=== PATIENT | male | born 1945 | race Caucasian/White ===

== ENCOUNTER 2018-03-08 22:44 | Inpatient (IN) | payer MEDICARE ==
[~2018-03-08] VITALS: Ht 177.8 cm; Wt 97.1 kg
[2018-03-08] MEDS ORDERED: ONDANSETRON HCL INJ 2 MG/ML VIAL IV STA (23:06)
[2018-03-08] MEDS ORDERED: MORPHINE SULFATE 2 MG/ML SYR IV STA (23:06)
[2018-03-08] MEDS ORDERED: SODIUM CHLORIDE 0.9% 500ML 500 ML IV ONE (23:15)
[2018-03-09] VITALS (9 sets, daily range): BP systolic 145–187; BP diastolic 66–88
[2018-03-09] MEDS ORDERED: MORPHINE SULFATE 2 MG/ML SYR IV STA ×2 (00:21→00:44)
[2018-03-09] MEDS: ENOXAPARIN SODIUM INJ 100 MG/ML SYR SC SCH ×2 (00:51→12:07)
--- NOTE | 2018-03-09 00:53 | Diagnostic Imaging Report ---
EXAM: CTA of the chest INDICATION: Chest pain and shortness of breath COMPARISON: None TECHNIQUE: Multidetector CT scanning of the chest was performed. Coronal and sagittal multiplanar reformations were obtained. Dose modulation, iterative reconstruction, and/or weight based adjustment of the mA/kV was utilized to reduce the radiation dose to as low as reasonably achievable. PE protocol performed. IV Contrast: 150 cc Isovue-370 CTDIvol has been reviewed. It is below the limits set by the Radiation Protocol Committee (RPC). FINDINGS: LUNGS AND AIRWAYS: The trachea and major bronchi are unremarkable. Scattered atelectatic changes. Faint groundglass opacities in the right lung base. PLEURA: Trace right pleural effusion. HEART, MEDIASTINUM, VESSELS: The heart is at the upper limits of normal in size with left ventricular wall thickening. No abnormal pericardial effusion. Calcified atherosclerotic changes of the thoracic aorta without aneurysm. Filling defects in the distal right main pulmonary artery with extension into segmental and subsegmental branches of the right upper, right middle and right lower lobe, with the greatest burden in the right lower lobe pulmonary arteries. Additional thrombi seen in subsegmental branches of the left upper and left lower lobe. Questionable thrombus involving the left lower pulmonary vein. (Series 2, image 61). UPPER ABDOMEN: No acute findings. MUSCULOSKELETAL: No acute findings. IMPRESSION: Acute pulmonary emboli involving the distal right main pulmonary artery with extension into segmental and subsegmental branches of the right upper, right middle and right lower lobe as well as subsegmental branches of the left upper and left lower lobe. Greatest thrombus burden is in the right lower lobe pulmonary arteries with associated groundglass opacities but no consolidative infarct. No CT findings of right heart strain. Findings discussed with Dr. Hoffman 1241 hrs March 09, 2018 Signed by: Dr. Halima Vega M.D. on 03/09/2018 12:50 AM
[2018-03-09] MEDS ORDERED: MORPHINE SULFATE 2 MG/ML SYR IV PRN (01:00)
[2018-03-09 01:10] LABS: INR 0.92; PROTHROMBIN TIME 13.2 seconds (11.9-14.5)
--- NOTE | 2018-03-09 01:18 | Diagnostic Imaging Report ---
Exam: AP view of the chest Indication: Shortness of breath and chest pain Comparison: CT of the chest March 09, 2018 Findings: The heart is within normal size limits for technique. Partially visualized lower cervical spine surgical hardware. The lungs are clear. Impression: No acute cardiothoracic abnormality. See same-day CT chest for findings of pulmonary emboli. Signed by: Dr. Halima Vega M.D. on 03/09/2018 1:14 AM
[2018-03-09] MEDS ORDERED: VITAMIN D1000 UNI1 PO (01:24)
[2018-03-09] MEDS ORDERED: BACLOFEN10 MG PO (01:24)
[2018-03-09] MEDS ORDERED: FLUTICASONE PRO16 GM (01:24)
[2018-03-09] MEDS ORDERED: MULTI-VITAMIN1 EACH (01:24)
[2018-03-09] MEDS ORDERED: ULTRAM50 MG PO (01:24)
[2018-03-09] MEDS ORDERED: ATENOLOL50 MG (01:24)
[2018-03-09] MEDS ORDERED: GABAPENTIN300 MG PO (01:24)
[2018-03-09] MEDS ORDERED: LISINOPRIL10 MG PO (01:24)
[2018-03-09] MEDS ORDERED: DOCUSATE SODIU100 MG PO (01:24)
[2018-03-09] MEDS ORDERED: INFLUENZA VIRUS VAC SPLIT INJ 0.5 ML SYR IM SCH (04:15)
[2018-03-09] MEDS: CEPHALEXIN 500 MG CAP PO SCH ×3 (06:21→17:27)
[2018-03-09 06:46] LABS: BASOPHILS # (AUTO) 0.1 (0.0-0.1); BASOPHILS % 0.5 % (0.0-1.0); EOSINOPHILS # (AUTO) 0.2 (0.0-0.4); EOSINOPHILS % 1.7 % (0.0-6.0); HEMATOCRIT 35.9 % (38.2-49.6); HEMOGLOBIN 12.4 g/dL (14.0-18.0); LYMPHOCYTES # (AUTO) 2.3 (1.0-3.2); LYMPHOCYTES % 21.8 % (18.0-39.1); MEAN CORPUSCULAR HEMOGLOBIN 30.3 pg (28-32); MEAN CORPUSCULAR HGB CONC 34.5 g/dL (31-35); MEAN CORPUSCULAR VOLUME 87.8 fL (81-99); MONOCYTES # (AUTO) 1.2 (0.2-0.8); MONOCYTES % 11.2 % (4.4-11.3); NEUTROPHILS # (AUTO) 6.9 (2.1-6.9); NEUTROPHILS % 64.6 % (38.7-80.0); PLATELET COUNT 188 x10e3/uL (140-360); RED BLOOD COUNT 4.09 x10e6/uL (4.3-5.7); RED CELL DISTRIBUTION WIDTH 13.6 % (11.7-14.4)
[2018-03-09 07:02] LABS: ANION GAP 13.9 mmol/L (8-16); BLOOD UREA NITROGEN 21 mg/dL (7-26); BUN/CREATININE RATIO 27 (6-25); CALCIUM 8.8 mg/dL (8.4-10.2); CARBON DIOXIDE 22 mmol/L (22-29); CHLORIDE 108 mmol/L (98-107); CREATINE KINASE 111 IU/L (30-200); CREATININE, SERUM 0.79 mg/dL (0.72-1.25); EST GLOMERULAR FILTRATION RATE > 60 ML/MIN (60-); GLUCOSE 115 mg/dL (74-118); POTASSIUM 3.9 mmol/L (3.5-5.1); SODIUM 140 mmol/L (136-145)
[2018-03-09] MEDS: ATENOLOL 50 MG TAB PO SCH (09:17)
[2018-03-09] MEDS: PANTOPRAZOLE 40 MG 10ML VIAL IV SCH (09:17)
[2018-03-09] MEDS: ONDANSETRON HCL INJ 2 MG/ML VIAL IV PRN ×2 (09:30→21:36)
[2018-03-09] MEDS ORDERED: MORPHINE SULFATE INJ 4 MG/ML INJ IV PRN (12:30)
[2018-03-09] MEDS ORDERED: DOCUSATE SODIUM 100 MG CAP PO PRN (13:00)
[2018-03-09] MEDS: LISINOPRIL 10 MG TAB PO SCH (14:20)
[2018-03-09] MEDS: GABAPENTIN 300 MG CAP PO SCH ×2 (14:20→21:36)
--- NOTE | 2018-03-09 15:29 | History and Physical ---
PRIMARY CARE PHYSICIAN: Dr. Baker at [facility]. CHIEF COMPLAINT: Rights-sided rib pain. HISTORY OF PRESENT ILLNESS: This is a 72-year-old man with a history of pulmonary emboli one year ago, had been treated with anticoagulants. He stopped oral anticoagulants in January 2018, now developing right-sided chest discomfort along the rib line. Patient did said he recently drove to [place] with his and drove back toward the end of January, using his [employer] pickup, now patient is having right lateral chest wall pain along the rib line. He also had shortness of breath. He had mild pain with deep inspiration for the past 2 days pulmonary embolism. Ultrasound of the leg shows right leg DVT, admitted for further evaluation and management. He did have periods of low blood pressure due to warfarin use in the past and was transition to Xarelto. PAST MEDICAL HISTORY: Hypertension, quadriplegia. Other complication of cervical neck surgery, subsequently recovering all motor function of the extremities, cervical, and lumbar disease status post C3 through C7 neck fusion and L2 through S2 fusion in November of 2016, left knee replacement status post infection, pulmonary embolism following a total knee replacement in July 2016 and quitting Xarelto use in January 2018. PAST SURGICAL HISTORY: Neck fusion C2 through C7 and L2 through S2 fusion on November 2016, total knee replacement status post infection. ALLERGIES: PER ELECTRONIC MEDICAL RECORD. FAMILY/SOCIAL HISTORY: Patient is . He has 2 children. No alcohol, illicits, or cigarettes. MEDICATIONS: Per electronic medical record. REVIEW OF SYSTEMS: Denies any dizziness or vision changes. Denies any headache, nausea, vomiting, diarrhea, or leg pain. PHYSICAL EXAMINATION VITAL SIGNS: Have been reviewed. GENERAL: Tired-appearing man resting in bed. HEENT: Anicteric. Pupils responsive to light. No oral lesions. CARDIOVASCULAR: Normal S1 and S2. No murmurs. LUNGS: Reduced breath sounds. ABDOMEN: Soft, nontender, nondistended. EXTREMITIES: No edema. Calf exam is deferred. SKIN: Dry. PSYCHIATRIC: Normal affect. NEUROLOGICAL: Alert and oriented x3. Moving all extremities. LABS: Reviewed. MEDICATIONS: Reviewed. ASSESSMENT: This is a 72-year-old man. 1. Acute pulmonary embolism. 2. Acute right leg deep vein thrombosis. 3. Normocytic anemia. 4. Hypertension. 5. Obesity. 6. Constipation. 7. Neuropathy. PLAN 1. Avoid Coumadin. 2. Use Lovenox now. Plan to transition to Xarelto before discharge. 3. Continue gabapentin and constipation medication. 4. Stabilize blood clot and plan to discharge home tomorrow the day after on Xarelto. 5. Followup with the lab tests including lipid panel and hemoglobin A1c. Job#: [id number] JEET
[2018-03-09] MEDS ORDERED: HYDRALAZINE HCL 25 MG TAB PO NR (21:00)
[2018-03-10] VITALS (8 sets, daily range): BP systolic 138–192; BP diastolic 61–88
[2018-03-10 00:27] LABS: CREATINE KINASE MB 1.6 ng/mL (0-5.0)
[2018-03-10] MEDS: ENOXAPARIN SODIUM INJ 100 MG/ML SYR SC SCH ×2 (00:45→12:46)
[2018-03-10 05:15] LABS: CHOL/HDL RATIO 3.3 (3.9-4.7)
[2018-03-10] MEDS: CEPHALEXIN 500 MG CAP PO SCH ×5 (06:00→21:43)
[2018-03-10 08:08] LABS: HEMATOCRIT 37.4 % (38.2-49.6); HEMOGLOBIN 12.8 g/dL (14.0-18.0)
[2018-03-10] MEDS: PANTOPRAZOLE 40 MG 10ML VIAL IV SCH (08:36)
[2018-03-10] MEDS: GABAPENTIN 300 MG CAP PO SCH ×3 (08:36→21:40)
[2018-03-10] MEDS: LISINOPRIL 10 MG TAB PO SCH (08:36)
[2018-03-10] MEDS: ATENOLOL 50 MG TAB PO SCH (08:37)
[2018-03-10] MEDS: HYDRALAZINE HCL 25 MG TAB PO SCH ×2 (12:46→21:40)
[2018-03-10] MEDS: ALPRAZOLAM 0.25 MG TAB PO SCH ×2 (12:47→21:43)
[2018-03-10] MEDS: ZOLPIDEM TARTRATE 5 MG TAB PO SCH (21:40)
[2018-03-11] VITALS (10 sets, daily range): BP systolic 131–186; BP diastolic 68–80
--- NOTE | 2018-03-11 00:24 | Progress Note ---
DATE: March 10, 2018 TIME: 2:30 p.m. OVERNIGHT: No events appeared overnight. Has full good night's sleep. REVIEW OF SYSTEMS: No significant chest pain, shortness of breath, back pain, or headache. No vision changes. OBJECTIVE VITAL SIGNS: Reviewed. GENERAL: A tired-appearing male, resting in bed. HEENT: Anicteric. CARDIOVASCULAR: Normal S1, S2. No murmurs. LUNGS: Reduced breath sounds. ABDOMEN: Soft, nontender, and nondistended. EXTREMITIES: No edema. SKIN: Dry. PSYCHIATRIC: Normal affect. LABS: Reviewed. MEDICATIONS: Reviewed. ASSESSMENT: A 72-year-old man with 1. Acute pulmonary embolism. 2. Acute right leg deep vein thrombosis. 3. Normocytic anemia. 4. Hypertension. 5. Obesity. 6. Constipation. 7. Neuropathy. 8. Insomnia. PLAN 1. Continue to avoid Coumadin as patient is allergic. 2. Continue blood thinners. 3. Plan to transition to Xarelto. 4. Add Ambien for insomnia. 5. Patient is stable. Respiratory status is stable. 6. Plan to discharge home on Monday with Xarelto. 7. Check H and H. Job#: [id number] VAS
[2018-03-11] MEDS: ENOXAPARIN SODIUM INJ 100 MG/ML SYR SC SCH ×2 (00:44→11:58)
[2018-03-11] MEDS: ALPRAZOLAM 0.25 MG TAB PO SCH ×3 (05:25→21:15)
[2018-03-11] MEDS: HYDRALAZINE HCL 25 MG TAB PO SCH ×3 (05:25→21:15)
[2018-03-11] MEDS: CEPHALEXIN 500 MG CAP PO SCH ×4 (05:25→22:35)
[2018-03-11] MEDS: LISINOPRIL 10 MG TAB PO SCH (10:28)
[2018-03-11] MEDS: PANTOPRAZOLE 40 MG 10ML VIAL IV SCH (10:28)
[2018-03-11] MEDS: GABAPENTIN 300 MG CAP PO SCH ×3 (10:28→21:15)
[2018-03-11] MEDS: ATENOLOL 50 MG TAB PO SCH (10:29)
[2018-03-11 15:30] LABS: BASOPHILS # (AUTO) 0.1 (0.0-0.1); EOSINOPHILS # (AUTO) 0.3 (0.0-0.4); EOSINOPHILS % 5.3 % (0.0-6.0); HEMATOCRIT 37.6 % (38.2-49.6); INR 0.87; LYMPHOCYTES # (AUTO) 1.9 (1.0-3.2); LYMPHOCYTES % 30.2 % (18.0-39.1); MEAN CORPUSCULAR HEMOGLOBIN 30.3 pg (28-32); MEAN CORPUSCULAR HGB CONC 34.6 g/dL (31-35); MEAN CORPUSCULAR VOLUME 87.6 fL (81-99); MONOCYTES # (AUTO) 0.8 (0.2-0.8); MONOCYTES % 12.2 % (4.4-11.3); NEUTROPHILS # (AUTO) 3.2 (2.1-6.9); PLATELET COUNT 241 x10e3/uL (140-360); PROTHROMBIN TIME 12.6 seconds (11.9-14.5); RED BLOOD COUNT 4.29 x10e6/uL (4.3-5.7); RED CELL DISTRIBUTION WIDTH 13.5 % (11.7-14.4)
[2018-03-11 15:35] LABS: BLOOD UREA NITROGEN 17 mg/dL (7-26); BUN/CREATININE RATIO 21 (6-25); CALCIUM 9.1 mg/dL (8.4-10.2); CARBON DIOXIDE 26 mmol/L (22-29); CHLORIDE 104 mmol/L (98-107); CREATININE, SERUM 0.82 mg/dL (0.72-1.25); EST GLOMERULAR FILTRATION RATE > 60 ML/MIN (60-); GLUCOSE 94 mg/dL (74-118); MAGNESIUM 1.8 MG/DL (1.3-2.1); SODIUM 139 mmol/L (136-145)
[2018-03-11] MEDS ORDERED: HYDROCODONE/APAP 5MG-325MG TAB PO PRN (17:15)
[2018-03-11] MEDS ORDERED: CLONIDINE HCL 0.1 MG TAB PO PRN (17:15)
[2018-03-11] MEDS ORDERED: XARELTO15 MG PO (17:21)
[2018-03-11] MEDS ORDERED: Hydrocodone/Apap 5MG-325MG PO (17:21)
[2018-03-11] MEDS ORDERED: ALPRAZOLAM0.25 MG PO (17:21)
[2018-03-11] MEDS ORDERED: KEFLEX500 MG PO (17:21)
[2018-03-11] MEDS ORDERED: Lidocaine Patch TP (17:21)
[2018-03-11] MEDS ORDERED: AMBIEN5 MG PO (17:21)
[2018-03-11] MEDS ORDERED: TRUFORM COMPRE1 EACH TOP (17:26)
[2018-03-11] MEDS: LIDOCAINE 5% PATCH TP SCH (17:45)
[2018-03-11] MEDS: RIVAROXABAN 15 MG TABLET PO SCH (17:47)
[2018-03-11] MEDS ORDERED: HYDROCODONE/APAP 10MG-325MG TAB PO PRN (18:00)
[2018-03-11] MEDS: ZOLPIDEM TARTRATE 5 MG TAB PO SCH (21:15)
[2018-03-12 00:48] VITALS: BP_SYST 160; BP_SYST 167; BP_DIAS 75; BP_DIAS 79
[2018-03-12 04:00] VITALS: BP 182/79
--- NOTE | 2018-03-12 04:32 | Discharge Summary ---
PRINCIPAL DIAGNOSES 1. Acute pulmonary embolism. 2. Acute right leg deep venous thrombosis. 3. Normocytic anemia. 4. Hypertension. 5. Obesity. 6. Constipation. 7. Neuropathy. SECONDARY DIAGNOSES 1. Hypertension. 2. History of quadriplegia. 3. Complications of cervical and neck surgery. 4. Temporary loss of motor function of the extremities, cervical and lumbar disease, status post C3-C7 neck fusion, and L2-S2 fusion in November 2016. 5. Left knee replacement, status post infection. 6. Pulmonary embolism following total knee replacement in July 2016. 7. Self-discontinuation of Xarelto in January 2018. CHIEF COMPLAINT: Right lateral chest wall pain with shortness of breath. HISTORY OF PRESENT ILLNESS: This 72-year-old man with a history of PE times 1 year ago, previously treated with anticoagulants. Oral AC discontinued in January 2018. Developed right-sided chest discomfort along the red line after driving to [place] and back in a [employer] pickup. The patient presented after having shortness of breath, mild pain with deep inspiration for 2 days prior to hospital presentation. Ultrasound of the leg showed right DVT. HOSPITAL COURSE: The patient was admitted upon presentation and underwent imaging, which confirmed acute PE involving the distal right main PA with extension into segmental and subsegmental branches of the right upper, right middle and right lower lobe, as well as subsegmental branches of the left upper and left lower lobe. The greatest burden was in the right lower lobe PA with associated ground-glass opacities, but no consolidative infarct. The patient was admitted to medical services where he was anticoagulated with Lovenox as the patient has a history of allergy to Coumadin. Initially, the patient was initiated on bowel regimen and gabapentin. The patient continued with hypertensive episodes in the hospital due to anxiety and agitation. On March 11, 2018, the patient was stratified for risk score, and it was determined he was class II without elevation in hypertension. Discussed treatment plans for hypertensive episodes with pain medication and p.r.n. hypertensive meds. The patient agreed to initial dose of Xarelto on this day. The patient agrees if hemodynamically stable in a.m. that he can be discharged home per his request on oral AC with a followup in [address] Baker. DISCHARGE MEDICATIONS: We plan to discharge the patient on: 1. Xanax 0.25 mg p.o. q.8 h. 2. Hydralazine 50 mg p.o. q.8 h. 3. Keflex 500 mg p.o. q.6 h. 4. Atenolol 25 mg p.o. daily. 5. Lisinopril 10 mg p.o. daily. 6. Gabapentin 300 mg p.o. t.i.d. 7. Protonix 40 mg will be discontinued. 8. Will continue the patient on his p.o. Ambien. 9. P.r.n. pain medications. 10. Xarelto 15 mg with meals twice daily for 21 days with the initial dose being today, Sunday, March 11, 2018. FOLLOWUP: The patient verbalized and agreed to followup with PCP, Dr. Baker, for an appointment upon discharge. CONDITION ON DISCHARGE: Stable. The patient is without symptoms at this time. Discussed risk factors for recurrence and mortality with the patient. The patient verbalized understanding and still wishes for early discharge with oral anticoagulation. DICTATED BY DOMONIQUE MARIE NP FELICIA SANCHEZ MD Job#: [id number] ADRIAN
[2018-03-12] MEDS ORDERED: HYDRALAZINE HCL 25 MG TAB PO SCH (06:00)
[2018-03-12 06:19] LABS: BASOPHILS # (AUTO) 0.1 (0.0-0.1); BASOPHILS % 1.1 % (0.0-1.0); EOSINOPHILS # (AUTO) 0.4 (0.0-0.4); EOSINOPHILS % 6.8 % (0.0-6.0); HEMATOCRIT 36.8 % (38.2-49.6); HEMOGLOBIN 12.9 g/dL (14.0-18.0); LYMPHOCYTES # (AUTO) 1.6 (1.0-3.2); LYMPHOCYTES % 28.4 % (18.0-39.1); MEAN CORPUSCULAR HEMOGLOBIN 30.3 pg (28-32); MEAN CORPUSCULAR HGB CONC 35.1 g/dL (31-35); MEAN CORPUSCULAR VOLUME 86.4 fL (81-99); MONOCYTES # (AUTO) 0.6 (0.2-0.8); MONOCYTES % 11.5 % (4.4-11.3); NEUTROPHILS # (AUTO) 2.9 (2.1-6.9); PLATELET COUNT 224 x10e3/uL (140-360); RED BLOOD COUNT 4.26 x10e6/uL (4.3-5.7); RED CELL DISTRIBUTION WIDTH 13.3 % (11.7-14.4)
[2018-03-12] MEDS: ALPRAZOLAM 0.25 MG TAB PO SCH (06:32)
[2018-03-12] MEDS: CEPHALEXIN 500 MG CAP PO SCH (06:32)
[2018-03-12 06:39] LABS: ANION GAP 12.7 mmol/L (8-16); BLOOD UREA NITROGEN 15 mg/dL (7-26); BUN/CREATININE RATIO 20 (6-25); CALCIUM 8.5 mg/dL (8.4-10.2); CARBON DIOXIDE 23 mmol/L (22-29); CHLORIDE 107 mmol/L (98-107); CREATININE, SERUM 0.76 mg/dL (0.72-1.25); EST GLOMERULAR FILTRATION RATE > 60 ML/MIN (60-); GLUCOSE 107 mg/dL (74-118); POTASSIUM 3.7 mmol/L (3.5-5.1); SODIUM 139 mmol/L (136-145)
[2018-03-12 07:30] VITALS: BP 139/67
[2018-03-12 07:40] VITALS: BP 139/67
[2018-03-12] MEDS: RIVAROXABAN 15 MG TABLET PO SCH (08:50)
[2018-03-12] MEDS: ATENOLOL 50 MG TAB PO SCH (09:21)
[2018-03-12] MEDS: GABAPENTIN 300 MG CAP PO SCH (09:21)
[2018-03-12] MEDS: LIDOCAINE 5% PATCH TP SCH (09:21)
[2018-03-12] MEDS: LISINOPRIL 10 MG TAB PO SCH (09:21)
[2018-03-12] MEDS: PANTOPRAZOLE 40 MG 10ML VIAL IV SCH (09:21)
--- NOTE | 2018-03-12 10:29 | Discharge Summary ---
ADDENDUM Patient remained as well for 1 additional day while on Xarelto, he will be discharged today. No events overnight. For further details of discharge, please refer to the discharge summary dated March 11, 2018. FELICIA SANCHEZ MD Job#: [id number]
[2018-03-13] MEDS ORDERED: PANTOPRAZOLE SOD 40 MG TABEC PO SCH (07:30)
== END 2018-03-12 10:33 | disposition home or self-care (01) | DRG 299 ==
LOC: FSED 22:44 → ERHOLD 03-09 00:54 → MED/SURG3 03-09 02:18
PROVIDERS: ADMIT Internal Medicine; ATTEND Internal Medicine
DX: I82.401 Acute embolism and thrombosis of unspecified deep veins of right lower extremity (principal); I26.09 Other pulmonary embolism with acute cor pulmonale; D64.9 Anemia, unspecified; I10 Essential (primary) hypertension; G62.9 Polyneuropathy, unspecified; Z91.14 Patient's other noncompliance with medication regimen; K59.00 Constipation, unspecified; Z96.652 Presence of left artificial knee joint; G47.00 Insomnia, unspecified; E66.9 Obesity, unspecified; Z68.30 Body mass index [BMI] 30.0-30.9, adult; Z23 Encounter for immunization
CPT/HCPCS: 36415; 71045; 71260; 80048; 80053; 80061; 82550; 82553; 83036; 83735; 83880; 84484; 85014; 85018; 85025; 85379; 85610; 85730; 93005; 93306; 93970; J1650; J2270; J2405; J7040

== ENCOUNTER 2018-06-23 13:28 | Emergency (ER) | payer MEDICARE ==
[~2018-06-23] VITALS: Ht 177.8 cm; Wt 97.1 kg
[~2018-06-23 13:28] MED LIST: ALPRAZOLAM0.25 MG PO; AMBIEN5 MG PO; ATENOLOL50 MG; BACLOFEN10 MG PO; DOCUSATE SODIU100 MG PO; FLUTICASONE PRO16 GM; GABAPENTIN300 MG PO; Hydrocodone/Apap 5MG-325MG PO; KEFLEX500 MG PO; LISINOPRIL10 MG PO; Lidocaine Patch TP; MULTI-VITAMIN1 EACH; TRUFORM COMPRE1 EACH TOP; ULTRAM50 MG PO; VITAMIN D1000 UNI1 PO; XARELTO15 MG PO
--- OUTSIDE RECORDS SUMMARY | 2018-06-23 13:31 | XMS REPORT | Clinical Summary ---
Author Author PIERRE [facility]anda GamesSt[facility] CenterSolarNOW [facility] Address Unknown Phone Unavailable Care Team Providers Care Communications Department Chairperson Name Role Phone Michele Barry Gino PCP Unavailable Allergies Comments Active Allergy Reactions Severity Noted Date Muscle pain Atorvastatin Other (See 07/24/2013 Comments) Muscle pain Amlodipine Other (See 07/24/2013 Comments) Medications End Date Status Medication Sig Dispensed Refills Start Date Active docusate sodium (COLACE) Take 100 mg 0 100 MG capsule by mouth daily . Active lisinopril Take 10 mg by 0 (PRINIVIL,ZESTRIL) 10 MG mouth nightly tablet . Active senna (SENOKOT) 8.6 mg Take 2 0 tablet tablets by mouth daily with lunch . Active simvastatin (ZOCOR) 40 MG Take 40 mg by 0 tablet mouth nightly. Active cholecalciferol, vitamin Take 5,000 0 D3, 5,000 unit Tab Units by mouth daily. Active ztjvvpsy-atbd-jij-folic Take 1 tablet 0 acid by mouth. (LWTKVWXHTWDH-THFQ-PYEYVO LS-FOLIC ACID) 3,500-18-0.4 unit-mg-mg Chew Active ferrous sulfate 325 (65 Take 325 mg 0 FE) MG tablet by mouth daily with breakfast. Active cyanocobalamin (VITAMIN Take 1,000 0 B-12) 1000 MCG tablet mcg by mouth daily. Active cephalexin (KEFLEX) 500 Take 500 mg 0 MG capsule by mouth 4 (four) times daily. Active omeprazole (PRILOSEC) 40 Take 40 mg by 0 MG capsule mouth daily. Active pregabalin (LYRICA) 100 Take 100 mg 0 MG capsule by mouth 3 (three) times daily. Active HYDROcodone-acetaminophen Take 1 tablet 0 (NORCO 10-325) 10-325 mg by mouth per tablet every 6 (six) hours as needed for Pain. Active BIFIDOBACTERIUM INFANTIS Take by mouth 0 (ALIGN ORAL) daily. Active atenolol (TENORMIN) 25 MG Take 25 mg by 0 tablet mouth 7 nightly. 08/05/2017 warfarin (COUMADIN) 2.5 Take 2.5 mg 0 MG tablet by mouth 7 daily Mon , and Sundays 5mgs, - 10 mgs, and Monday 7.5mgs . 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 Hypertension 07/26/2016 Infection of total knee replacement, initial encounter 07/16/2016 Spinal cord injury, cervical region 07/31/2013 Post-operative complication 07/31/2013 Neurological deficit present 07/31/2013 Dysphagia 07/31/2013 Hypocalcemia 07/31/2013 Anemia associated with acute blood loss 07/31/2013 History of steroid therapy 07/31/2013 Anxiety 07/31/2013 Cervical spondylosis 07/31/2013 Hypotension (arterial) 07/31/2013 Hypertension due to medical or surgical care 07/31/2013 Cervical myelopathy 07/25/2013 Social History Date Tobacco Use Types Packs/Day Years Used Never Smoker Smokeless Tobacco: Never Used Alcohol Use Drinks/Week oz/Week Comments Yes seldom Sex Assigned at Date Recorded Not on file Industry Job Start Date Occupation Not on file Not on file Not on file Travel End Travel History Travel Start No recent travel history available. Last Filed Vital Signs Not on file Plan of Treatment Not on file Implants Device Identifier Shelf Expiration Date Model / Serial / Lot Implanted Type Area Manufactur er 03/14/2014 23184 / [id number] / [id number] Leroy Michaud 5cc - [id number] Bone N/A: Neck RTI Implanted: Qty: 1 on 07/25/2013 by Giovani Wright MD 04/12/2018 [id number] / / [id number] Infusion Set Bone Infuseii Lg Bone N/A: Spine MEDTRONIC: [id number] - [id number] Lumbar SPINAL Implanted: Qty: 1 on 11/10/2016 by BIOLOGICS Heriberto Zee MD 08/04/2017 [id number] / [id number] / Bone Grft Sub Dbx Pty 5ml [id number] - Bone N/A: Spine MUSCULOSKE [id number] Lumbar LETAL Implanted: Qty: 1 on 11/10/2016 by Heriberto Casey MD FND 2019 TPUT10 / [id number] / Tiss Live Puty Dbm Optium 10cc Bone N/A: Spine LIFENET:LI Tput10 - [id number] Lumbar FENET Implanted: Qty: 1 on 11/11/2016 by TRANSPLANT Heriberto Zee MD SRV 07/11/2018 [id number] / [id number] / Bone Grft Sub Dbx Pty 5ml [id number] - Bone N/A: Spine MUSCULOSKE [id number] Lumbar LETAL Implanted: Qty: 1 on 11/11/2016 by TRANSPLANT Heriberto Zee MD FND 12/22/2017 [id number] / [id number] / Bone Grft Sub Dbx Pty 10ml [id number] - Bone N/A: Spine MUSCULOSKE [id number] Lumbar LETAL Implanted: Qty: 1 on 11/11/2016 by TRANSPLANT Heriberto Zee MD FND 05/09/2019 554186 / [id number] / Bone Chip Canc 1.7-10mm 30ml Bone N/A: Spine MUSCULOSKE [id number] - [id number] Lumbar LETAL Implanted: Qty: 1 on 11/11/2016 by Heriberto Casey MD FND 11/09/2014 [id number] / / [id number] Cement,Bone Simplex P Speedset Full Cement/Juaquin Left: Knee Kristine Dose 40gm - [id number] ler/Adhesi Orthopaedi Implanted: Qty: 2 on 12/04/2013 by shimon Marino Rabago MD 04/11/2018 [id number] / / [id number] Matrix Floseal Hemo W/O Ndl 10 Cement/Juaquin N/A: Spine MOORE:BIO [id number] - [id number] ler/Adhesi Lumbar SCI Implanted: Qty: 1 on 11/10/2016 by Heriberto Busby MD 04/11/2018 [id number] / / [id number] Matrix Floseal Hemo W/O Ndl 10 Cement/Juaquin MOORE:BIO [id number] - [id number] ler/Adhesi SCI Implanted: Qty: 3 on 11/11/2016 by Heriberto Busby MD 12/09/2017 [id number] / / [id number] Sealant Duraseal Spine Ds3 5ml Cement/Juaquin N/A: Spine COVIDIEN:U 20-6520 - [id number] ler/Adhesi Lumbar S Implanted: Qty: 1 on 11/11/2016 by shimon SURG:SYNET Heriberto Zee MD [facility] 04/11/2021 [id number] / / [id number] Patella,Persona All Poly 35mm - Joints Left: Knee DAQUAN INC [id number] Implanted: Qty: 1 on 12/04/2013 by Marino Rabago MD 09/10/2023 [id number] / / [id number] Tibial Stem,Persona 5deg Sz G L - Joints Left: Knee DAQUAN INC [id number] Implanted: Qty: 1 on 12/04/2013 by Marino Rabago MD 08/09/2023 [id number] / / [id number] Femoral,Persona Cruciate Retaining Joints Left: Knee DAQUAN INC Std Sz 11 L - [id number] Implanted: Qty: 1 on 12/04/2013 by Marino Rabago MD 04/11/2020 [id number] / / [id number] Femoral,Persona Articular Surface Joints Left: Knee DAQUAN INC Crutiate Retaining L 7-12 Gh 10mm - [id number] Implanted: Qty: 1 on 12/04/2013 by Marino Rabago MD 05/11/2021 [id number] / / [id number] Cr Polyethylese Left 10mm Height Joints Left: Knee Daquan Implanted: Qty: 1 on 07/18/2016 by Marino Rabago MD [id number] / / Manuel,Oasys - [id number] Spine N/A: Neck KRISTINE Implanted: Qty: 10 on 07/25/2013 by Giovani Cho MD [id number] / / [id number] Screw,Polyaxial Cancellous 3.5x14mm Spine N/A: Neck KRISTINE - [id number] Implanted: Qty: 10 on 07/25/2013 by Giovani Sapp MD [id number] / / [id number] Balta,Oasys Ti 3.5x70mm - [id number] Spine N/A: Neck KRISTINE Implanted: Qty: 2 on 07/25/2013 by Giovani Cho MD 04/21/2024 [id number] / / [id number] Dev Clydesdl Ptc 18mm 6d 10x50 Spine N/A: Spine MEDTRONIC: [id number] - [id number] Lumbar SPINAL Implanted: Qty: 1 on 11/10/2016 by Heriberto Chilel MD 04/07/2023 [id number] / / [id number] Dev Clydesdl Ptc 18mm 6d 10x55 Spine N/A: Spine MEDTRONIC: [id number] - [id number] Lumbar SPINAL Implanted: Qty: 1 on 11/10/2016 by Heriberto Chilel MD 03/23/2024 [id number] / / [id number] Dev Clydesdl Ptc 18mm 6d 10x55 Spine N/A: Spine MEDTRONIC: [id number] - [id number] Lumbar SPINAL Implanted: Qty: 1 on 11/10/2016 by Heriberto Chilel MD [id number] / / [id number] Screw Mas Cc 7.5x50 [id number] - Spine N/A: Spine MEDTRONIC: [id number] Lumbar SPINAL Implanted: Qty: 8 on 11/11/2016 by Heriberto Chilel MD [id number] / / [id number] Screw Set Ti Ns Brk Off 5.5 - Spine N/A: Spine MEDTRONIC: [id number] Lumbar SPINAL Implanted: Qty: 12 on 11/11/2016 by Heriberto Chilel MD [id number] / / [id number] Balta Plus 5.5mm [id number] - Spine N/A: Spine MEDTRONIC: [id number] Lumbar SPINAL Implanted: Qty: 1 on 11/11/2016 by Heriberto Chilel MD [id number] / / [id number] Scr Mas 8.5x90 [id number] - Spine N/A: Spine MEDTRONIC: [id number] Lumbar SPINE:SOFA Implanted: Qty: 1 on 11/11/2016 by Heriberto Lerma MD [id number] / / [id number] Ballast Mas 8.5x80 Spine N/A: Spine MEDTRONIC Implanted: Qty: 1 on 11/11/2016 by Lumbar Heriberto Zee MD [id number] / / [id number] Screw Mas Cc 7.5 X 45 [id number] - Spine N/A: Spine MEDTRONIC: [id number] Lumbar SPINAL Implanted: Qty: 2 on 11/11/2016 by BIOLOGICS Heriberto Zee MD Results Not on fileafter 06/22/2017 Insurance Payer Benefit Subscriber ID Type Phone Address Plan / Group [facility] MEDIC[facility] ADV Advance Directives For more information, please contact: [address] [address] Date Inactivated Comments Code Status Date Activated 11/10/2016 10:03 PM Full Code 11/10/2016 6:31 AM This code status was determined by: Patient 08/04/2016 5:10 PM Full Code 07/26/2016 9:38 AM This code status was determined by: Patient 07/21/2016 3:31 PM Full Code 07/16/2016 5:35 AM This code status was determined by: Patient 12/04/2013 8:02 PM All possible means of support including;cardiac massage, mechanical ventilation, and defibrillation will be used to support life. Code ONE 12/04/2013 9:53 AM 07/31/2013 10:40 PM All possible means of support, including: cardiac massage, mechanical ventilation, and defibrillation will be used to support life. Code ONE 07/25/2013 6:21 PM
--- OUTSIDE RECORDS SUMMARY | 2018-06-23 13:31 | XMS REPORT | Continuity of Care Document ---
Author Author [facility] Interface Address Unknown Phone Unavailable Problems Problem Status Onset Date Classification Date Reported Comments Source CELLULITIS, EFFUSION OF KNEE JOINT LEFT, Active 07/14/2016 [facility] LOWER BACK PAIN Active 07/14/2016 [facility] POST DC FU- NO ORDER Active 08/30/2013 [facility] Cervical myelopathy Active Problem 07/18/2016 [facility] Dysphagia Active Problem 07/18/2016 [facility] Hemiparesis Active Problem 07/18/2016 [facility] HTN (<span [id number]">Confirmed</span>) Resolved Problem 07/18/2016 [facility] Osteoarthritis Resolved Problem 07/18/2016 [facility] Tetraparesis Active Problem 07/18/2016 [facility] CELLULITIS, UNSPECIFIED Active [facility] EFFUSION, LEFT KNEE Active [facility] SIRS OF NON-INFECTIOUS ORIGIN W/O ACUTE Active [facility] Medications Medication Details Route Status Patient Instructions Ordering Provider Order Date Source RN-Do not give Vanc till trough drawn 07/16/16@ 15:30 RN-Do not give Vanc till trough drawn 07/16/16@ 15:30, ATTN:RN - REMINDER, Drug form: MISC, Route: MISC, ONCE, 07/16/16 16:30:00 TUBE CLOSING MACHINE OPERATOR, Stop date: 07/16/16 16:30:00 TUBE CLOSING MACHINE OPERATOR No Longer Active 07/16/2016 [facility] RN-Do not give Vanc till trough drawn 07/16/16@ 16:30 RN-Do not give Vanc till trough drawn 07/16/16@ 16:30, ATTN:RN - REMINDER, Drug form: MISC, Route: MISC, ONCE, 07/16/16 16:00:00 TUBE CLOSING MACHINE OPERATOR, Stop date: 07/16/16 16:00:00 TUBE CLOSING MACHINE OPERATOR No Longer Active 07/16/2016 [facility] vancomycin + sodium chloride 0.9% 500 mL INJ (for IV set) 500 mL 2,000 mg, Route: IVPB, [id number], Start date: 07/15/16 17:00:00 TUBE CLOSING MACHINE OPERATOR, Duration: 30 day, Stop date: 08/14/16 5:00:00 CSTNotes: TIME CRITICAL MEDICATION (Same As: Vancocin) Infusion rate 2001 mg: infuse over 2.5 hours MEDICATION WASTE Product Size: 1000 mg Product Wasted: ___ mg Inactive 07/15/2016 [facility] ondansetron 2 mg/mL injectable solution 4 mg=2 mL, IVP, Q6H, PRN Nausea & Vomiting, 0 Refill(s) Active 07/15/2016 [facility] Morphine 2 mg=1 mL, IVP, Q4H, PRN Pain Score 7-10, 0 Refill(s) Active 07/15/2016 [facility] acetaminophen 325 mg oral tablet 650 mg=2 tab, PO, Q4H, PRN Pain 1-3/Temp > 100.4 F, 0 Refill(s) Active 07/15/2016 [facility] heparin 5,000 unit, 1 mL, Route: SUB-Q, Drug form: INJ, Q12H, Dosing Weight 95.455, kg, Start date: 07/15/16 9:00:00 TUBE CLOSING MACHINE OPERATOR, Duration: 30 day, Stop date: 08/13/16 21:00:00 CSTNotes: porcine heparin Inactive 07/15/2016 [facility] tramadol hydrochloride 50 MG Oral Tablet 50 mg=1 tab, PO, BID, PRN Pain Score 6-10, 0 Refill(s) Active 07/15/2016 [facility] Senna-gen 8.6 mg oral tablet 17.2 mg=2 tab, PO, Bedtime, PRN for constipation, # 100 tab, 0 Refill(s) Active 07/15/2016 [facility] lisinopril 20 mg oral tablet 20 mg=1 tab, PO, Daily, # 30 tab, 0 Refill(s) Active 07/15/2016 [facility] tizanidine 2 mg oral capsule 2 mg=1 cap, PO, Bedtime, PRN for muscle spasm, take 1 to 2 tabs as needed, # 30 cap, 0 Refill(s) Active 07/15/2016 [facility] Vitamin D3 5000 intl units oral capsule 5,000 IntlUnit=1 cap, PO, Daily, # 30 cap, 1 Refill(s) Active 07/15/2016 [facility] tizanidine 2 mg oral tablet 4 mg=2 tab, PO, Bedtime, PRN as needed for muscle spasm, take 1 to 2 tabs as needed, 0 Refill(s) Active 07/15/2016 [facility] Centrum Silver Men's 1 tab, PO, Daily, 0 Refill(s) Active 07/15/2016 [facility] Docusate Sodium 100 MG Oral Capsule 100 mg=1 cap, PO, Daily, PRN Constipation, # 20 cap, 0 Refill(s) Active 07/15/2016 [facility] Diclofenac 75 mg, PO, BID, 0 Refill(s) Active 07/15/2016 [facility] simvastatin 10 mg oral tablet 10 mg=1 tab, PO, Bedtime, # 90 tab, 1 Refill(s) Active 07/15/2016 [facility] Atenolol 25 MG Oral Tablet 25 mg=1 tab, PO, Daily, # 30 tab, 0 Refill(s) Active 07/15/2016 [facility] gabapentin 300 MG Oral Capsule 600 mg=2 cap, PO, TID, 0 Refill(s) Active 07/15/2016 [facility] Zosyn 3.375 gm, Route: IVPB, [id number], Dosing Weight 95.455, kg, CrCl >=20 ml/min infuse over 4 hours, Start date: 07/15/16 4:00:00 TUBE CLOSING MACHINE OPERATOR, Duration: 30 day, Stop date: 08/13/16 21:00:00 CSTNotes: (Same as: Zosyn) Dosing based on Piperacillin component MEDICATION WASTE Product Size: 3375 mg Product Wasted: ___ mg Inactive 07/15/2016 [facility] Vancomycin 1 ea, Route: MISC, Dosing Weight 95.455, kg, ONCALL, Start date: 07/15/16 4:00:00 TUBE CLOSING MACHINE OPERATOR, Duration: 1 doses or times, Pharmacy to dose Inactive 07/15/2016 [facility] vancomycin + sodium chloride 0.9% 500 mL INJ (for IV set) 500 mL 2,000 mg, Route: IVPB, ONCE, Start date: 07/15/16 3:25:00 TUBE CLOSING MACHINE OPERATOR, Stop date: 07/15/16 3:25:00 CSTNotes: TIME CRITICAL MEDICATION (Same As: Vancocin) Infusion rate 2001 mg: infuse over 2.5 hours MEDICATION WASTE Product Size: 1000 mg Product Wasted: ___ mg Inactive 07/15/2016 [facility] Morphine 2 mg, 1 mL, Route: IVP, Drug form: INJ, Q4H, Dosing Weight 95.455, kg, PRN Pain Score 7-10, Start date: 07/15/16 3:10:00 TUBE CLOSING MACHINE OPERATOR, Duration: 30 day, Stop date: 08/14/16 3:09:00 CSTNotes: (Same as:MORPhine Sulfate) Inactive 07/15/2016 [facility] Ondansetron 4 mg, 2 mL, Route: IVP, Drug form: INJ, Q6H, Dosing Weight 95.455, kg, PRN Nausea & Vomiting, Start date: 07/15/16 3:10:00 TUBE CLOSING MACHINE OPERATOR, Duration: 30 day, Stop date: 08/14/16 3:09:00 CSTNotes: (Same as: Zofran) MEDICATION WASTE Product Size: 4 mg Product Wasted: ___ mg Inactive 07/15/2016 [facility] Acetaminophen 650 mg, 2 tab, Route: PO, Drug form: TAB, Q4H, Dosing Weight 95.455, kg, PRN Pain 1-3/Temp > 100.4 F, Start date: 07/15/16 3:10:00 TUBE CLOSING MACHINE OPERATOR, Duration: 30 day, Stop date: 08/14/16 3:09:00 CSTNotes: Do not exceed 4 gm/day. (Same as: Tylenol) Inactive 07/15/2016 [facility] Saline Flush 0.9% 10 ml, Route: IVP, Drug Form: INJ, Dosing Weight 95.455, kg, PRN, PRN Line Flush, Start date: 07/15/16 3:10:00 TUBE CLOSING MACHINE OPERATOR, Duration: 30 day, Stop date: 08/14/16 3:09:00 CSTNotes: (Same as: BD Posiflush) Inactive 07/15/2016 [facility] Sodium Chloride 0.154 MEQ/ML Injectable Solution 1,000 mL, Rate: 125 ml/hr, Infuse over: 8 hr, Route: IV, Dosing Weight 95.455 kg, Total Volume: 1,000, Start date: 07/15/16 3:10:00 TUBE CLOSING MACHINE OPERATOR, Duration: 30 day, Stop date: 08/14/16 3:09:00 TUBE CLOSING MACHINE OPERATOR Inactive 07/15/2016 [facility] Sodium Chloride 0.154 MEQ/ML Injectable Solution 3,000 mL, 1000 ml/hr, Infuse Over: 3 hr, Route: IV, 3,000, Drug form: INJ, ONCE, Priority: STAT, Dosing Weight 95.455 kg, Start date: 07/15/16 3:01:00 TUBE CLOSING MACHINE OPERATOR, Duration: 1 doses or times, Stop date: 07/15/16 3:01:00 TUBE CLOSING MACHINE OPERATOR Inactive 07/15/2016 [facility] Vancomycin 1,000 mg, Route: IVPB, Drug form: INJ, ONCE, Dosing Weight 95.455, kg, Priority: STAT, Start date: 07/15/16 2:50:00 TUBE CLOSING MACHINE OPERATOR, Stop date: 07/15/16 2:50:00 TUBE CLOSING MACHINE OPERATOR Inactive 07/15/2016 [facility] Lidocaine Hydrochloride 10 MG/ML Injectable Solution 1 mL, Route: SUB-Q, Drug Form: INJ, Dosing Weight 95.455, kg, ONCE, STAT, Start date: 07/15/16 0:54:00 TUBE CLOSING MACHINE OPERATOR, Stop date: 07/15/16 0:54:00 CSTNotes: Preservative free. (Same as: Xylocaine MPF) Inactive 07/15/2016 [facility] Cefazolin 1 gm, Route: IVPB, ONCE, Dosing Weight 95.455, kg, Priority: STAT, Start date: 07/15/16 0:54:00 TUBE CLOSING MACHINE OPERATOR, Stop date: 07/15/16 0:54:00 CSTNotes: (Same As: Ancef, Kefzol) MEDICATION WASTE Product Size: 1000 mg Product Wasted: ___ mg Inactive 07/15/2016 [facility] Tylenol 975 mg, 3 tab, Route: PO, Drug form: TAB, ONCE, Dosing Weight 95.455, kg, Priority: STAT, Start date: 07/15/16 0:51:00 TUBE CLOSING MACHINE OPERATOR, Stop date: 07/15/16 0:51:00 CSTNotes: Do not exceed 4 gm/day. (Same as: Ty lenol) Inactive 07/15/2016 [facility] Ondansetron 4 mg, 2 mL, Route: IVP, Drug form: INJ, ONCE, Dosing Weight 95.455, kg, Priority: STAT, Start date: 07/15/16 0:50:00 TUBE CLOSING MACHINE OPERATOR, Stop date: 07/15/16 0:50:00 CSTNotes: (Same as: Zofran) MEDICATION WASTE * Product Size: 4 mg Product Wasted: ___ mg Inactive 07/15/2016 [facility] Morphine 4 mg, 1 mL, Route: IVP, Drug form: SOLN, ONCE, Dosing Weight 95.455, kg, Priority: STAT, Start date: 07/15/16 0:50:00 TUBE CLOSING MACHINE OPERATOR, Stop date: 07/15/16 0:50:00 CSTNotes: (Same as:MORPhine Sulfate) Inactive 07/15/2016 [facility] Sodium Chloride 0.154 MEQ/ML Injectable Solution 1,000 mL, 1000 ml/hr, Infuse Over: 1 hr, Route: IV, 1,000, Drug form: INJ, ONCE, Priority: STAT, Dosing Weight 95.455 kg, Start date: 07/15/16 0:50:00 TUBE CLOSING MACHINE OPERATOR, Duration: 1 doses or times, Stop date: 07/15/16 0:50:00 TUBE CLOSING MACHINE OPERATOR Inactive 07/15/2016 [facility] Allergies, Adverse Reactions, Alerts Substance Category Reaction Severity Reaction type Status Date Reported Comments Source Lipitor Assertion Drug allergy Active [facility] Norvasc Assertion Drug allergy Active [facility] Immunizations Immunization Date Given Site Status Last Updated Comments Source Results Order Name Results Value Reference Range Date Interpretation Comments Source URINE AND STOOL UA Urobilinogen <=1.0 mg/dL 0.1 - 1.0 07/15/2016 [facility] URINE AND STOOL UA Sq Epi None Seen 07/15/2016 [facility] URINE AND STOOL UA Spec Grav 1.028 <=1.030 07/15/2016 [facility] URINE AND STOOL UA Protein Negative mg/dL Negative mg/dL 07/15/2016 [facility] URINE AND STOOL UA Turbidity Clear (07/15/16 9:43 AM) Clear 07/15/2016 [facility] URINE AND STOOL UA Color Yellow *NA* (07/15/16 9:43 AM) Yellow 07/15/2016 [facility] URINE AND STOOL UA pH 5.0 5.0 - 8.0 07/15/2016 [facility] URINE AND STOOL UA Bili Negative *NA* (07/15/16 9:43 AM) Negative 07/15/2016 [facility] URINE AND STOOL UA Ketones Negative mg/dL Negative mg/dL 07/15/2016 [facility] URINE AND STOOL UA Glucose Negative mg/dL Negative mg/dL 07/15/2016 [facility] URINE AND STOOL UA Leuk Est Negative (07/15/16 9:43 AM) Negative 07/15/2016 [facility] URINE AND STOOL UA RBC 6 /HPF 0 - 2 07/15/2016 [facility] URINE AND STOOL UA Nitrite Negative (07/15/16 9:43 AM) Negative 07/15/2016 [facility] URINE AND STOOL UA WBC 3 /HPF 0 - 5 07/15/2016 [facility] URINE AND STOOL UA Blood Negative (07/15/16 9:43 AM) Negative 07/15/2016 [facility] URINE AND STOOL UA Bacteria Occasional /HPF None Seen /HPF 07/15/2016 [facility] URINE AND STOOL UA Mucus Many /LPF None Seen /LPF 07/15/2016 [facility] URINE AND STOOL UA Hyal Cast 1 /LPF 0 - 2 07/15/2016 [facility] CHEM PANEL Lactic Acid Lvl 1.8 mMol/L 0.5 - 2.2 07/15/2016 [facility] ELECTROLYTES AGAP 16.9 meq/L 10.0 - 20.0 07/15/2016 [facility] ELECTROLYTES B/C Ratio 27 6 - 25 07/15/2016 [facility] ELECTROLYTES Globulin 4.1 g/dL 2.7 - 4.2 07/15/2016 [facility] ELECTROLYTES A/G Ratio 0.9 0.7 - 1.6 07/15/2016 [facility] ELECTROLYTES Potassium Lvl 3.9 meq/L 3.5 - 5.1 07/15/2016 [facility] ELECTROLYTES Sodium Lvl 139 meq/L 135 - 145 07/15/2016 [facility] ELECTROLYTES Calcium Lvl 8.1 mg/dL 8.5 - 10.5 07/15/2016 [facility] ELECTROLYTES CO2 22 meq/L 24 - 32 07/15/2016 [facility] ELECTROLYTES Chloride Lvl 104 meq/L 95 - 109 07/15/2016 [facility] ELECTROLYTES Glucose Lvl 138 mg/dL 70 - 99 07/15/2016 [facility] ELECTROLYTES Creatinine Lvl 1.00 mg/dL 0.50 - 1.40 07/15/2016 [facility] ELECTROLYTES BUN 27 mg/dL 7 - 22 07/15/2016 [facility] ELECTROLYTES Albumin Lvl 3.6 g/dL 3.5 - 5.0 07/15/2016 [facility] ELECTROLYTES Total Protein 7.7 g/dL 6.4 - 8.4 07/15/2016 [facility] ELECTROLYTES Bili Total 0.5 mg/dL 0.2 - 1.3 07/15/2016 [facility] ELECTROLYTES Alk Phos 95 unit/L 39 - 136 07/15/2016 [facility] ELECTROLYTES AST 22 unit/L 0 - 37 07/15/2016 [facility] ELECTROLYTES ALT 31 unit/L 0 - 65 07/15/2016 [facility] ELECTROLYTES eGFR 76 mL/min/1.73m2 07/15/2016 Result Comment: The eGFR is calculated using the CKD-EPI formula. In most young, healthy individuals the eGFR will be >90 mL/min/1.73m2. The eGFR declines with age. An eGFR of 60-89 may be normal in some populations, particularly the elderly, for whom the CKD-EPI formula has not been extensively validated. Use of the eGFR is not recommended in the following populations: Individuals with unstable creatinine concentrations, including patients and those with serious co-morbid conditions. Patients with extremes in muscle mass or diet. The data above are obtained from the National Kidney Disease Education Program (NKDEP) which additionally recommends that when the eGFR is used in patients with extremes of body mass index for purposes of drug dosing, the eGFR should be multiplied by the estimated BMI. [facility] Sed Rate 21 mm/h 0 - 15 07/15/2016 [facility] MCH 30.1 pg 27.0 - 31.0 07/15/2016 [facility] MCV 87.2 fL 80.0 - 94.0 07/15/2016 [facility] MCHC 34.5 g/dL 32.0 - 36.0 07/15/2016 [facility] RDW 14.1 % 11.5 - 14.5 07/15/2016 [facility] Hct 38.3 % 42.0 - 54.0 07/15/2016 [facility] MPV 10.8 fL 7.4 - 10.4 07/15/2016 [facility] Platelet 166 K/CMM 133 - 450 07/15/2016 [facility] WBC 17.0 K/CMM 3.7 - 10.4 07/15/2016 [facility] Hgb 13.2 g/dL 14.0 - 18.0 07/15/2016 [facility] RBC 4.39 M/CMM 4.70 - 6.10 07/15/2016 [facility] INR 1.07 0.85 - 1.17 07/15/2016 [facility] HEMATOLOGY PT 14.1 s 12.0 - 14.7 07/15/2016 [facility] HEMATOLOGY PTT 28.4 s 22.9 - 35.8 07/15/2016 [facility] HEMATOLOGY Basophils # 0.1 K/CMM 0.0 - 0.2 07/15/2016 [facility] HEMATOLOGY Segs-Bands # 14.0 K/CMM 1.5 - 8.1 07/15/2016 [facility] Basophils 0.6 % 0.0 - 1.0 07/15/2016 [facility] Monocytes # 1.5 K/CMM 0.0 - 0.8 07/15/2016 [facility] Lymphocytes # 1.4 K/CMM 1.0 - 5.5 07/15/2016 [facility] Monocytes 8.9 % 2.0 - 12.0 07/15/2016 [facility] Lymphocytes 8.0 % 20.0 - 40.0 07/15/2016 [facility] Segs 82.5 % 45.0 - 75.0 07/15/2016 [facility] IMMUNOLOGY C-REACTIVE PROTEIN 54.6 mg/L <=2.9 mg/L 07/15/2016 [facility] Knee 3 views DX Knee 3 views DX Patient Name: SOPHIE DUNNE : 1945; Age: 71 years y/o Male MR: [id number] Study: Knee 3 views DX 07/14/2016 10:29 PM TUBE CLOSING MACHINE OPERATOR Ordering Physician: Deepail Altman Comparison: None Clinical Indication: Left knee pain and swelling; Left knee prosthesis is noted with the prosthetic components in satisfactory position. Prepatellar soft tissue swelling is noted. Moderate joint fluid collection is noted. No acute fracture, dislocation or osteolysis. SL: [id number] 07/14/2016 - - Read by: Cruz Morris MD Dictated Date/time: 07/14/16 23:02 Electronically Signed by: Cruz Morris MD 07/14/16 23:02 FINAL REPORT [facility] Spine lumbar 2 or 3 views DX Spine lumbar 2 or 3 views DX Patient Name: SOPHIE DUNNE : 1945; Age: 71 years y/o Male MR: [id number] Study: Spine lumbar 2 or 3 views DX 07/14/2016 10:29 PM TUBE CLOSING MACHINE OPERATOR Ordering Physician: Deepali Altman Comparison: None Clinical Indication: Pain, Lumbar region; PA, lateral and cone lateral views of the lumbar spine were obtained. Complete loss of disc space associated with vacuum phenomena is noted at L2-L3, L3-L4, L4-L5 and L5-S1. Marginal spurring is noted at the visualized lower thoracic and lumbar vertebral bodies. Lumbar curvature convex to the right. Lumbar vertebral body heights and interspaces are otherwise well-maintained. There is no acute fracture, dislocation or spondylolisthesis. Vascular calcification at the abdomen and pelvis. SL: BETY 07/14/2016 - - Read by: Cruz Morris MD Dictated Date/time: 07/14/16 23:02 Electronically Signed by: Cruz Morris MD 07/14/16 23:04 FINAL REPORT [facility] Vital Signs Vital Sign Value Date Comments Source Systolic (mm Hg) 172 07/15/2016 [facility] Diastolic (mm Hg) 71 07/15/2016 [facility] Respitory Rate 18 07/15/2016 [facility] Temperature Oral (F) 101.1 F 07/15/2016 [facility] Heart Rate 78 07/15/2016 [facility] Respitory Rate 17 07/15/2016 [facility] Temperature Oral (F) 99.8 F 07/15/2016 [facility] Systolic (mm Hg) 142 07/15/2016 [facility] Diastolic (mm Hg) 56 07/15/2016 [facility] Heart Rate 72 07/15/2016 [facility] Systolic (mm Hg) 149 07/15/2016 [facility] Diastolic (mm Hg) 72 07/15/2016 [facility] Heart Rate 80 07/15/2016 [facility] Temperature Oral (F) 98.6 F 07/15/2016 [facility] Height 177.8 cm 07/15/2016 [facility] BMI Calculated 30.2 07/15/2016 [facility] Weight 95.455 07/15/2016 [facility] Weight 95.455 07/15/2016 [facility] Encounters Location Location Details Encounter Type Encounter Number Reason For Visit Attending Provider ADM Date DC Date Status Source [facility] Inpatient [id number] Prateek Jose 07/15/2016 07/16/2016 [facility] Procedures Procedure Code Date Perfomer Comments Source
--- NOTE | 2018-06-23 16:49 | Diagnostic Imaging Report ---
EXAM: CTA Chest- PE Protocol INDICATION: Rule out pulmonary embolism. COMPARISON: CT Chest PE protocol 03/09/18. TECHNIQUE: Multidetector CT scanning of the chest was performed. Coronal and sagittal multiplanar reformations were obtained. Dose modulation, iterative reconstruction, and/or weight based adjustment of the mA/kV was utilized to reduce the radiation dose to as low as reasonably achievable. PE protocol performed. IV Contrast: 100 cc Isovue-370 CTDIvol has been reviewed. It is below the limits set by the Radiation Protocol Committee (RPC). FINDINGS: LINES: None LUNGS AND AIRWAYS: The trachea and major bronchi are unremarkable. Scattered atelectatic changes. Interval resolution of groundglass opacities of the right lung base. Motion and technique limit evaluation for small lung nodules. PLEURA: No evidence of pleural effusion or pneumothorax. HEART, MEDIASTINUM, VESSELS: Mild cardiomegaly. Mild left ventricular wall thickening. No evidence of pericardial effusion. Moderate atherosclerotic changes of the thoracic aorta. Ascending aortic ectasia measuring up to 4.2 cm. Small hiatal hernia. PULMONARY ARTERIES: Satisfactory for evaluation of pulmonary embolism to the segmental level. Main pulmonary artery measures 3.5 cm. Interval resolution of previously noted bilateral pulmonary emboli. No evidence of pulmonary embolism to the level of the segmental pulmonary arteries. Previously visualized questionable filling defect in the left lower lobe pulmonary vein is no longer seen. UPPER ABDOMEN: Limited visualization of the upper abdomen demonstrates no evidence of abnormality in the liver, spleen, or adrenal glands. BONES/SOFT TISSUES: No acute osseous abnormality. IMPRESSION: Interval resolution of a bilateral pulmonary emboli. No evidence of pulmonary embolism to the level of the segmental pulmonary arteries. Enlarged main pulmonary artery measuring up to 3.5 cm suggestive of pulmonary arterial hypertension. Signed by: Dr. Da Ramirez MD on 06/23/2018 4:46 PM
== END 2018-06-23 17:22 | disposition home or self-care (01) ==
LOC: FSED 13:28
DX: M54.5 Low back pain (principal); R10.12 Left upper quadrant pain; M62.838 Other muscle spasm; I26.99 Other pulmonary embolism without acute cor pulmonale; I10 Essential (primary) hypertension; E78.5 Hyperlipidemia, unspecified
CPT/HCPCS: 71275; 80053; 81003; 82553; 84484; 85025; 85379; 93005; 99284

== ENCOUNTER 2019-05-19 14:42 | Emergency (ER) | payer MEDICARE ==
[~2019-05-19] VITALS: Ht 175.3 cm; Wt 96.8 kg
[2019-05-19] MEDS ORDERED: HYDRALAZINE HCL 20 MG/ML VIAL ONE (15:27)
[2019-05-19] MEDS ORDERED: NITROGLYCERIN 2% OINT 1 GM PKT ONE (15:28)
--- NOTE | 2019-05-19 15:28 | Diagnostic Imaging Report ---
EXAMINATION: CXR 2 VIEW - HOPD INDICATION: Shortness of breath, cough ^[id number] ^[id number] COMPARISON: None FINDINGS: PA and lateral views TUBES and LINES: None. LUNGS: Diffuse pulmonary hyperinflation consistent with COPD. There is no evidence of pneumonia or pulmonary edema. PLEURA: No pleural effusion or pneumothorax. HEART AND MEDIASTINUM: The heart is top normal in size to mildly enlarged. The descending thoracic aorta is tortuous. BONES AND SOFT TISSUES: Pedicle screws and vertical stabilizing bars in the lower cervical spine are intact. Degenerative changes of the thoracic spine. No focal osseous lesions. Soft tissues are unremarkable. UPPER ABDOMEN: Unremarkable. IMPRESSION: Pulmonary hyperinflation consistent with COPD. No acute pulmonary process. Signed by: Dr. Chelo Rossi MD on 05/19/2019 3:25 PM
[2019-05-19] MEDS ORDERED: HYDRALAZINE HCL 20 MG/ML VIAL IV ONE (15:30)
[2019-05-19] MEDS ORDERED: NITROGLYCERIN 2% OINT 1 GM PKT TOP ONE (15:30)
[2019-05-19] MEDS ORDERED: ALBUTEROL/IPRATROPIUM 3 ML NEB NEB ONE (15:45)
[2019-05-19] MEDS ORDERED: ALBUTEROL/IPRATROPIUM 3 ML NEB ONE (16:07)
--- NOTE | 2019-05-19 16:30 | NUR ---
Nitro paste cleaned off chest per MD's orders as BP is 111/57 at this time.
[2019-05-19] MEDS ORDERED: AMLODIPINE BESYLATE 10 MG TAB ONE (18:03)
[2019-05-19] MEDS ORDERED: FUROSEMIDE INJ 10 MG/ML 4 ML VIAL ONE (18:19)
[2019-05-19 18:23] VITALS: BP 163/72
[2019-05-19] MEDS ORDERED: AMLODIPINE BESYLATE 10 MG TAB PO ONE (18:30)
[2019-05-19] MEDS ORDERED: FUROSEMIDE INJ 10 MG/ML 4 ML VIAL IV ONE (18:30)
== END 2019-05-19 19:06 | disposition home or self-care (01) ==
LOC: FSED 14:42
DX: R06.00 Dyspnea, unspecified (principal); J44.9 Chronic obstructive pulmonary disease, unspecified; I50.23 Acute on chronic systolic (congestive) heart failure; I10 Essential (primary) hypertension
CPT/HCPCS: 71046; 80053; 81003; 82553; 83880; 84484; 85025; 85379; 93005; 96374; 96375; 99284; J0360; J1940

== ENCOUNTER 2019-05-24 22:54 | Emergency (ER) | payer MEDICARE ==
[~2019-05-24] VITALS: Ht 175.3 cm; Wt 96.6 kg
[2019-05-24] MEDS ORDERED: HYDRALAZINE HCL 20 MG/ML VIAL IV ONE (23:30)
[2019-05-25 00:17] LABS: BASOPHILS % 0.4 % (0.0-1.0); EOSINOPHILS # (AUTO) 0.3 (0.0-0.4); EOSINOPHILS % 4.4 % (0.0-6.0); HEMATOCRIT 41.7 % (38.2-49.6); HEMOGLOBIN 14.7 g/dL (14.0-18.0); LYMPHOCYTES # (AUTO) 2.7 (1.0-3.2); LYMPHOCYTES % 37.6 % (18.0-39.1); MEAN CORPUSCULAR HEMOGLOBIN 30.1 pg (28-32); MEAN CORPUSCULAR HGB CONC 35.3 g/dL (31-35); MEAN CORPUSCULAR VOLUME 85.5 fL (81-99); MONOCYTES # (AUTO) 0.9 (0.2-0.8); NEUTROPHILS # (AUTO) 3.3 (2.1-6.9); NEUTROPHILS % 45.2 % (38.7-80.0); PLATELET COUNT 233 x10e3/uL (140-360); RED BLOOD COUNT 4.88 x10e6/uL (4.3-5.7); RED CELL DISTRIBUTION WIDTH 13.8 % (11.7-14.4)
[2019-05-25 03:08] LABS: EOSINOPHILS % (MANUAL) 6 % (0-7); LYMPHOCYTES % (MANUAL) 40 % (19-48); MONOCYTES % (MANUAL) 10 % (3.4-9.0); NEUTROPHILS % (MANUAL) 44 % (40-74)
[2019-05-25 03:09] LABS: PLATELET ESTIMATE ADEQUATE; PLATELET MORPHOLOGY COMMENT NORMAL; RBC MORPHOLOGY COMMENT NORMAL
[2019-05-25 05:19] VITALS: BP 175/86
== END 2019-05-25 01:38 | disposition home or self-care (01) ==
LOC: ER 22:54
DX: I10 Essential (primary) hypertension (principal)
CPT/HCPCS: 36415; 80053; 82550; 82553; 84484; 85025; 93005; 99283; J0360

== ENCOUNTER 2019-11-21 21:18 | Observation (INO) | payer MEDICARE ==
[~2019-11-21] VITALS: Ht 175.3 cm; Wt 96.6 kg
[2019-11-21] MEDS ORDERED: HYDRALAZINE HCL 20 MG/ML VIAL IV STA (21:20)
--- OUTSIDE RECORDS SUMMARY | 2019-11-21 21:21 | XMS REPORT | Clinical Summary ---
Author Author PIERRE [facility] [place] [facility] Address Unknown Phone Unavailable Care Team Providers Care Dance Studio Manager Name Role Phone Michele Barry Gino PCP [...] unit Tab Units by mouth daily. Active bzdryspm-phmq-lei-folic Take 1 tablet 0 acid by mouth. (OJLPGJPOADKQ-NREN-PHPXXQ LS-FOLIC ACID) 3,500-18-0.4 unit-mg-mg Chew Active ferrous [...] 25 MG Take 25 mg by 0 07/14 tablet mouth 7 nightly. 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 Hypertension 07/26/2016 Infection of total knee replacement, initial encounte r 07/16/2016 Spinal cord injury, cervical region 07/31/2013 Post-operative complication 07/31/2013 Neurological deficit present 07/31/2013 Dysphagia 07/31/2013 Hypocalcemia 07/31/2013 Anemia associated with acute blood loss 07/31/2013 History of steroid therapy 07/31/2013 Anxiety 07/31/2013 Cervical spondylosis 07/31/2013 Hypotension (arterial) 07/31/2013 Hypertension due to medical or surgical care 014 Cervical myelopathy 07/25/2013 Social History Date Tobacco [...] Shelf Expiration Date Model / Serial / L ot Implanted Type Area Manufactur er 03/14/2014 [id number] / [id number] / [id number] Leroy Michaud Bio 5cc - [id number] Bone N/A: Neck R TI Implanted: Qty: 1 on 07/25/2013 by BIOLOGICS Giovani Sapp MD 04/12/2018 [id number] / / [id number] Infusion Set Bone Infuseii Lg Bone N/A: Spine MEDTRONIC: [id number] - [id number] Lumbar SPINAL Implanted: Qty: 1 on 11/10/2016 by BIOLOGICS Heriberto Zee MD 08/04/2017 [id number] / [id number] / Bone Grft Sub Dbx Pty 5ml [id number] - Bone N/A: Spine MUSCULOSKE [id number] Lumbar LETAL Implanted: Qty: 1 on 11/10/2016 by Heriberto Casey MD FND 2019 [id number] / [id number] / Tiss Live Puty Dbm Optium 10cc Bone N/A: Spine LIFENET:LI Tput10 - [id number] Lumbar FENET Implanted: Qty: 1 on 11/11/2016 by Heriberto Casey MD SRV 07/11/2018 [id number] / [id number] / Bone Grft Sub Dbx Pty 5ml [id number] - Bone N/A: Spine MUSCULOSKE [id number] Lumbar LETAL Implanted: Qty: 1 on 11/11/2016 by Heriberto Casey MD FND 12/22/2017 [id number] / [id number] / Bone Grft Sub Dbx Pty 10ml [id number] - Bone N/A: Spine MUSCULOSKE [id number] Lumbar LETAL Implanted: Qty: 1 on 11/11/2016 by Heriberto Casey MD FND 05/09/2019 [id number] / [id number] / Bone Chip Canc 1.7-10mm 30ml Bone N/A: Spine M USCULOSKE [id number] - [id number] Lumbar LETAL Implanted: Qty: 1 on 11/11/2016 by Heriberto Casey MD FND 11/09/2014 [id number] / / [id number] Cement,Bone Simplex P Speedset Full Cement/Juaquin Left: Knee Colt Dose 40gm - [id number] ler/Adhesi Orthopaedi Implanted: Qty: 2 on 12/04/2013 by Marino Courtney MD 04/11/2018 [id number] / / [id number] Matrix Floseal Hemo W/O Ndl 10 Cement/Juaquin N/A: Spine MOORE:BIO [id number] - [id number] ler/Adhesi Lumbar SCI Implanted: Qty: 1 on 11/10/2016 by Heriberto Busby MD 04/11/2018 [id number] / / [id number] Matrix Floseal Hemo W/O Ndl 10 Cement/Juaquin MOORE: BIO [id number] - [id number] ler/Adhesi SCI Implanted: Qty: 3 on 11/11/2016 by Heriberto Busby MD 12/09/2017 [id number] / / [id number] Sealant Duraseal Spine Ds3 5ml Cement/Juaquin N/A: Spine COVIDIEN:U -6520 - [id number] ler/Adhesi Lumbar S Implanted: Qty: 1 on 11/11/2016 by shimon RANDHAWA G:Heriberto Antony MD [facility] 04/11/2021 [id number] / / [id number] Patella,Persona All Poly 35mm - Joints Left: Knee DAQUAN INC [id number] Implanted: Qty: 1 on 12/04/2013 by Marino Rabago MD 09/10/2023 [id number] / / [id number] Tibial Stem,Persona 5deg Sz G L - Joints Left: Knee DAQUAN INC [id number] Implanted: Qty: 1 on 12/04/2013 by Marino Rabago MD 08/09/2023 [id number] / / [id number] Femoral,Persona Cruciate Retaining Joints Left: Knee DAQUAN INC Std Sz 11 L - [id number] Implanted: Qty: 1 on 12/04/2013 by Marino Rabago MD 04/11/2020 [id number] / / [id number] Femoral,Persona Articular Surface Joints Left: Knee DAQUAN INC Crutiate Retaining L 7-12 Gh 10mm - [id number] Implanted: Qty: 1 on 12/04/2013 by Marino Rabago MD 05/11/2021 [id number] / / [id number] Cr Polyethylese Left 10mm Height Joints Left: Knee Daquan Implanted: Qty: 1 on 07/18/2016 by Marino Rabago MD [id number] / / Manuel,Oasys - [id number] Spine N/A: Neck STRYK ER Implanted: Qty: 10 on 07/25/2013 by Giovani Cho MD [id number] / / [id number] Screw,Polyaxial Cancellous 3.5x14mm Spine N/A: Neck KRISTINE - [id number] NERI Implanted: Qty: 10 on 07/25/2013 by Giovani Sapp MD [id number] / / [id number] Balta,Oasys Ti 3.5x70mm - [id number] Spine N/A: Neck KRISTINE Implanted: Qty: 2 on 07/25/2013 by Giovani Cho MD 04/21/2024 [id number] / / [id number] Dev Clydesdl Ptc 18mm 6d 10x50 Spine N/A: Spine MEDTRONIC: [id number] - [id number] Lumbar SPINAL Implanted: Qty: 1 on 11/10/2016 by Heriberto Chilel MD 04/07/2023 [id number] / / [id number] Dev Clydesdl Ptc 18mm 6d 10x55 Spine N/A: Spine MEDTRONIC: [id number] - [id number] Lumbar SPINAL Implanted: Qty: 1 on 11/10/2016 by Heriberto Chilel MD 03/23/2024 [id number] / / [id number] Dev Clydesdl Ptc 18mm 6d 10x55 Spine N/A: Spine MEDTRONIC: [id number] - [id number] Lumbar SPINAL Implanted: Qty: 1 on 11/10/2016 by Heriberto Chilel MD [id number] / / [id number] Screw Mas Cc 7.5x50 [id number] - Spine N/A: Spine MEDTRONIC: [id number] Lumbar SPINAL Implanted: Qty: 8 on 11/11/2016 by Heriberto Chilel MD [id number] / / [id number] Screw Set Ti Ns Brk Off 5.5 - Spine N/A: Spine MEDTRONIC: [id number] Lumbar SPINAL Implanted: Qty: 12 on 11/11/2016 by Heriberto Chilel MD [id number] / / [id number] Balta Plus 5.5mm [id number] - Spine N/A: Spine ME DTRONIC: [id number] Lumbar SPINAL Implanted: Qty: 1 on 11/11/2016 by Heriberto Chilel MD [id number] / / [id number] Scr Mas 8.5x90 [id number] - Spine N/A: Spine M EDTRONIC: [id number] Lumbar SPINE:SOFA Implanted: Qty: 1 on 11/11/2016 by Heriberto Lerma MD [id number] / / [id number] Ballast Mas 8.5x80 Spine N/A: Spine MEDTRONIC Implanted: Qty: 1 on 11/11/2016 by Lumbar Heriberto Zee MD [id number] / / [id number] Screw Mas Cc 7.5 X 45 [id number] - Spine N/A: Spine MEDTRONIC: [id number] Lumbar SPINAL Implanted: Qty: 2 on 11/11/2016 by BIOLOGICS Heriberto Zee MD Results Not on fileafter 11/20/2018 Insurance Payer Benefit Subscriber ID Type Phone Address Plan / Group [employer] xxxxxxxxxxx MEDICARE ADV [id number] [facility] (Home) [place] [address] Advance Directives For more information, please contact: [address] [address] Date Inactivated Comments Code Status Date Activated 11/10/2016 10:03 PM Full Code 11/10/2016 6:31 AM This code status was determined by: Patient 08/04/2016 5:10 PM Full Code 07/26/2016 9:38 AM This code status was determined by: Patient 07/21/2016 3:31 PM Full Code 07/16/2016 5:35 AM This code status was determined by: Patient 12/04/2013 8:02 PM All possible means of suppor t including;cardiac massage, mechanical ventilation, and defibrillation will be used to support life. Code ONE 12/04/2013 9:53 AM 07/31/2013 10:40 PM All possible means of suppor t, including: cardiac massage, mechanical ventilation, and defibrillation will be used to support life. Code ONE 07/25/2013 6:21 PM
--- OUTSIDE RECORDS SUMMARY | 2019-11-21 21:22 | XMS REPORT | Continuity of Care Document ---
Author Author SOPHIE [employer] Address Unknown Phone Unavailable Care Team Providers Care Revenue Stamp Clerk Name Role Phone [facility] Unavailable Un available Problems Problem Status Onset Date Classification Date Reported Comments Source LOWER BACK PAIN Active 07/14/2016 [facility] CELLULITIS, EFFUSION OF KNEE JOINT LEFT, Active 07/14/2016 [facility] POST DC FU- NO ORDER Active 08/30/2013 [facility] Cervical myelopathy (disorder) Active Problem 11/2016 [facility] Dysphagia (disorder) Active Problem 07/18/2016 [facility] Hemiparesis (disorder) Active Problem 07/18/2016 [facility] Hypertensive disorder, systemic arterial (disorder) Resolved Problem 07/18/2016 [facility] Osteoarthritis (disorder) Reso lved Problem 11/2016 [facility] Quadriparesis (disorder) Active Problem 07/18/2016 [facility] CELLULITIS, UNSPECIFIED Active [facility] EFFUSION, LEFT KNEE Active [facility] SIRS OF NON-INFECTIOUS ORIGIN W/O ACUTE Active [facility] Medications Medication Details Route Status Patient Instructions Ordering Provider Order Date Source RN-Do not give Vanc till trough drawn 07/16/16@ 15:30 RN-Do not give Vanc till trough drawn 07/16/16@ 15:30, ATTN:RN - REMINDER, Drug form: MISC, Route: MISC, ONCE, 07/16/16 16:30:00 DIRECTOR OF CASEWORK DEPARTMENT, Stop date: 07/16/16 16:30:00 DIRECTOR OF CASEWORK DEPARTMENT No Longer Active 07/16/2016 [facility] RN-Do not give Vanc till trough drawn 07/16/16@ 16:30 RN-Do not give Vanc till trough drawn 07/16/16@ 16:30, ATTN:RN - REMINDER, Drug form: MISC, Route: MISC, ONCE, 07/16/16 16:00:00 DIRECTOR OF CASEWORK DEPARTMENT, Stop date: 07/16/16 16:00:00 DIRECTOR OF CASEWORK DEPARTMENT No Longer Active 07/16/2016 [facility] vancomycin + sodium chloride 0.9% 500 mL INJ (for IV set) 500 mL 2001 mg: infuse over 2.5 hours ME DICATION WASTE Product Size: 1000 mg Product Wasted: ___ mg Inactive 07/15/2016 [facility] ondansetron 2 mg/mL injectable solution 4 mg = 2 mL, IVP, Q6H, PRN Nausea & Vomiting, 0 Refill(s) Active 07/15/2016 [facility] Morphine 2 mg = 1 mL, IVP, Q4H , PRN Pain Score 7-10, 0 Refill(s) Active 07/15/2016 [facility] acetaminophen 325 mg oral tablet 100.4 F, 0 Refill(s) Active 07/15/2016 [facility] heparin Notes: porcine heparin Inactive 07/15/2016 [facility] tramadol hydrochloride 50 MG Oral Tablet 50 mg = 1 tab, PO, BID, PRN Pain Score 6-10, 0 Refill(s) Active 07/15/2016 [facility] Senna-gen 8.6 mg oral tablet 1 7.2 mg = 2 tab, PO, Bedtime, PRN for constipation, # 100 tab, 0 Refill(s) Active 07/15/2016 [facility] lisinopril 20 mg oral tablet 2 0 mg = 1 tab, PO, Daily, # 30 tab, 0 Refill(s) Active 07/15/2016 [facility] tizanidine 2 mg oral capsule 2 mg = 1 cap, PO, Bedtime, PRN for muscle spasm, take 1 to 2 tabs as needed, # 30 cap, 0 Refill(s) Active 07/15/2016 [facility] Vitamin D3 5000 intl units oral capsule 5,000 IntlUnit = 1 cap, PO, Daily, # 30 cap, 1 Refill(s) Active 07/15/2016 [facility] tizanidine 2 mg oral tablet 4 mg = 2 tab, PO, Bedtime, PRN as needed for muscle spasm, take 1 to 2 tabs as needed, 0 Refill(s) Active 07/15/2016 [facility] Centrum Silver Men's 1 tab, PO , Daily, 0 Refill(s) Active 07/15/2016 [facility] Docusate Sodium 100 MG Oral Capsule 100 mg = 1 cap, PO, Daily, PRN Constipation, # 20 cap, 0 Refill(s) Active 07/15/2016 [facility] Diclofenac 75 mg, PO, BID, 0 R efill(s) Active 07/15/2016 [facility] simvastatin 10 mg oral tablet 10 mg = 1 tab, PO, Bedtime, # 90 tab, 1 Refill(s) Active 07/15/2016 [facility] Atenolol 25 MG Oral Tablet 25 mg = 1 tab, PO, Daily, # 30 tab, 0 Refill(s) Active 07/15/2016 [facility] gabapentin 300 MG Oral Capsule 600 mg = 2 cap, PO, TID, 0 Refill(s) Active 07/15/2016 [facility] Zosyn Notes: (Same as: Zosyn) Dosing based on Piperacillin component MEDICATION WASTE Product Size: 3375 mg Product Wasted: ___ mg Inactive 07/15/2016 [facility] Vancomycin 1 ea, Route: MISC, Dosing Weight 95.455, kg, ONCALL, Start date: 07/15/16 4:00:00 DIRECTOR OF CASEWORK DEPARTMENT, Duration: 1 doses or times, Pharmacy to dose Inactive 07/15/2016 [facility] vancomycin + sodium chloride 0.9% 500 mL INJ (for IV set) 500 mL 2001 mg: infuse over 2.5 hours ME DICATION WASTE Product Size: 1000 mg Product Wasted: ___ mg Inactive 07/15/2016 [facility] Morphine Notes: (Same as:MORPh ine Sulfate) Inactive 07/15/2016 [facility] Ondansetron Notes: (Same as: Eneida rojas) MEDICATION WASTE Product Size: 4 mg Product Wasted: ___ mg Inactive 07/15/2016 [facility] Acetaminophen Notes: Do not ex ceed 4 gm/day. (Same as: Tylenol) Inactive 07/15/2016 [facility] Saline Flush 0.9% Notes: (Same as: BD Posiflush) Inactive 07/15/2016 [facility] Sodium Chloride 0.154 MEQ/ML Injectable Solution 1,000 mL, Rate: 125 ml/hr, Infuse over: 8 hr, Route: IV, Dosing Weight 95.455 kg, Total Volume: 1,000, Start date: 07/15/16 3:10:00 DIRECTOR OF CASEWORK DEPARTMENT, Duration: 30 day, Stop date: 08/14/16 3:09:00 DIRECTOR OF CASEWORK DEPARTMENT Inactive 07/15/2016 [facility] Sodium Chloride 0.154 MEQ/ML Injectable Solution 3,000 mL, 1000 ml/hr, Infuse Over: 3 hr, Route: IV, 3,000, Drug form: INJ, ONCE, Priority: STAT, Dosing Weight 95.455 kg, Start date: 07/15/16 3:01:00 DIRECTOR OF CASEWORK DEPARTMENT, Duration: 1 doses or times, Stop date: 07/15/16 3:01:00 DIRECTOR OF CASEWORK DEPARTMENT Inactive 07/15/2016 [facility] Vancomycin 1,000 mg, Route: IV PB, Drug form: INJ, ONCE, Dosing Weight 95.455, kg, Priority: STAT, Start date: 07/15/16 2:50:00 DIRECTOR OF CASEWORK DEPARTMENT, Stop date: 07/15/16 2:50:00 DIRECTOR OF CASEWORK DEPARTMENT Inactive 07/15/2016 [facility] Lidocaine Hydrochloride 10 MG/ML Injectable Solution Notes: Preservative free. (Same as: Xylocaine MPF) Inactive 07/15/2016 [facility] Cefazolin Notes: (Same As: Anc ef, Kefzol) MEDICATION WASTE Product Size: 1000 mg Product Wasted: ___ mg Inactive 07/15/2016 [facility] Tylenol Notes: Do not exceed 4 gm/day. (Same as: Tylenol) Inactive 07/15/2016 [facility] Ondansetron Notes: (Same as: Z bob) MEDICATION WASTE Product Size: 4 mg Product Wasted: ___ mg Inactive 07/15/2016 [facility] Morphine Notes: (Same as:MORPh ine Sulfate) Inactive 07/15/2016 [facility] Sodium Chloride 0.154 MEQ/ML Injectable Solution 1,000 mL, 1000 ml/hr, Infuse Over: 1 hr, Route: IV, 1,000, Drug form: INJ, ONCE, Priority: STAT, Dosing Weight 95.455 kg, Start date: 07/15/16 0:50:00 DIRECTOR OF CASEWORK DEPARTMENT, Duration: 1 doses or times, Stop date: 07/15/16 0:50:00 DIRECTOR OF CASEWORK DEPARTMENT Inactive 07/15/2016 [facility] Allergies, Adverse Reactions, Alerts Substance Category Reaction Severity Reaction type Status Date Reported Comments Source Lipitor Assertion Drug allergy Active [facility] Norvasc Assertion Drug allergy Active [facility] Immunizations No Data Provided for This Section Results Order Name Results Value Reference Range Date Interpretation Comments Source URINE AND STOOL UA Urobilinogen <=1.0 mg/dL 0.1 - 1.0 07/15/2016 [facility] URINE AND STOOL UA Sq Epi None Seen 07/15/2016 [facility] URINE AND STOOL UA Spec Grav 1.028 <=1.030 07/15/2016 [facility] URINE AND STOOL UA Protein Negative mg/dL Negative mg/dL 07/15/2016 [facility] URINE AND STOOL UA Turbidity Clear (07/15/16 9:43 AM) Clear 07/15/2016 [facility] URINE AND STOOL UA Color Yellow *NA* (07/15/16 9:43 AM) Yellow 07/15/2016 [facility] URINE AND STOOL UA pH 5.0 5.0 - 8.0 07/15/2016 [facility] URINE AND STOOL UA Bili Negative *NA* (07/15/16 9:43 AM) Negative 07/15/2016 [facility] URINE AND STOOL UA Ketones Negative mg/dL Negative mg/dL 07/15/2016 [facility] URINE AND STOOL UA Glucose Negative mg/dL Negative mg/dL 07/15/2016 [facility] URINE AND STOOL UA Leuk Est Negative (07/15/16 9:43 AM) Negative 07/15/2016 [facility] URINE AND STOOL UA RBC 6 0 - 2 07/15/2016 [facility] URINE AND STOOL UA Nitrite Negative (07/15/16 9:43 AM) Negative 07/15/2016 [facility] URINE AND STOOL UA WBC 3 0 - 5 07/15/2016 [facility] URINE AND STOOL UA Blood Negative (07/15/16 9:43 AM) Negative 07/15/2016 [facility] URINE AND STOOL UA Bacteria Occasional /HPF None Seen /HPF 07/15/2016 [facility] URINE AND STOOL UA Mucus Many /LPF None Seen /LPF 07/15/2016 [facility] URINE AND STOOL UA Hyal Cast 1 0 - 2 07/15/2016 [facility] CHEM PANEL Lactic Acid Lvl 1.8 0.5 - 2.2 07/15/2016 [facility] ELECTROLYTES AGAP 16.9 10.0 - 20.0 07/15/2016 [facility] ELECTROLYTES B/C Ratio 27 6 - 25 07/15/2016 [facility] ELECTROLYTES Globulin 4.1 2.7 - 4.2 07/15/2016 [facility] ELECTROLYTES A/G Ratio 0.9 0.7 - 1.6 07/15/2016 [facility] ELECTROLYTES Potassium Lvl 3.9 3.5 - 5.1 07/15/2016 [facility] ELECTROLYTES Sodium Lvl 139 135 - 145 07/15/2016 [facility] ELECTROLYTES Calcium Lvl 8.1 8.5 - 10.5 07/15/2016 [facility] ELECTROLYTES CO2 22 24 - 32 07/15/2016 [facility] ELECTROLYTES Chloride Lvl 104 95 - 109 07/15/2016 [facility] ELECTROLYTES Glucose Lvl 138 70 - 99 07/15/2016 [facility] ELECTROLYTES Creatinine Lvl 1.0 0 0.50 - 1.40 07/15/2016 [facility] ELECTROLYTES BUN 27 7 - 22 07/15/2016 [facility] ELECTROLYTES Albumin Lvl 3.6 3.5 - 5.0 07/15/2016 [facility] ELECTROLYTES Total Protein 7.7 6.4 - 8.4 07/15/2016 [facility] ELECTROLYTES Bili Total 0.5 0.2 - 1.3 07/15/2016 [facility] ELECTROLYTES Alk Phos 95 39 - 136 07/15/2016 [facility] ELECTROLYTES AST 22 0 - 37 07/15/2016 [facility] ELECTROLYTES ALT 31 0 - 65 07/15/2016 [facility] ELECTROLYTES eGFR 76 07/15/2016 Result Comment: The eGFR is calculated [...] should be multiplied by the estimated BMI. [facility] HEMATOLOGY Sed Rate 21 0 - 15 07/15/2016 [facility] HEMATOLOGY MCH 30.1 27.0 - 31.0 07/15/2016 [facility] HEMATOLOGY MCV 87.2 80.0 - 94.0 07/15/2016 [facility] MCHC 34.5 32.0 - 36.0 07/15/2016 [facility] HEMATOLOGY RDW 14.1 11.5 - 14.5 07/15/2016 [facility] Hct 38.3 42.0 - 54.0 07/15/2016 [facility] MPV 10.8 7.4 - 10.4 07/15/2016 [facility] Platelet 166 133 - 450 07/15/2016 [facility] WBC 17.0 3.7 - 10.4 07/15/2016 [facility] Hgb 13.2 14.0 - 18.0 07/15/2016 [facility] RBC 4.39 4.70 - 6.10 07/15/2016 [facility] INR 1.07 0.85 - 1.17 07/15/2016 [facility] PT 14.1 12.0 - 14.7 07/15/2016 [facility] PTT 28.4 22.9 - 35.8 07/15/2016 [facility] Basophils # 0.1 0.0 - 0.2 07/15/2016 [facility] Segs-Bands # 14.0 1.5 - 8.1 07/15/2016 [facility] Basophils 0.6 0.0 - 1.0 07/15/2016 [facility] Monocytes # 1.5 0.0 - 0.8 07/15/2016 [facility] Lymphocytes # 1.4 1.0 - 5.5 07/15/2016 [facility] Monocytes 8.9 2.0 - 12.0 07/15/2016 [facility] Lymphocytes 8.0 20.0 - 40.0 07/15/2016 [facility] Segs 82.5 45.0 - 75.0 07/15/2016 [facility] IMMUNOLOGY C-REACTIVE PROTEIN 54.6 <=2.9 mg/L 07/15/2016 [facility] Pathology Reports No Data Provided for This Section Diagnostic Reports Report Value Date Source Spine lumbar 2 or 3 views DX P atient Name: SOPHIE DUNNE : 1945; Age: 71 years y/o Male MR: [id number] Study: Spine lumbar 2 or 3 views DX 07/14/2016 10:29 PM DIRECTOR OF CASEWORK DEPARTMENT Ordering Physician: Deepali Altman Comparison: None Clinical [...] the abdomen and pelvis. SL: BETY 07/14/2016 [facility] Knee 3 views DX Patient Name: SOPHIE DUNNE : 1945; Age: 71 years y/o Male MR: [id number] Study: Knee 3 views DX 07/14/2016 10:29 PM DIRECTOR OF CASEWORK DEPARTMENT Ordering Physician: Deepali Altman Comparison: None Clinical Indication: Left knee pain and swelling; Left knee prosthesis is noted with the prosthetic components in satisfactory position. Prepatellar soft tissue swelling is noted. Moderate joint fluid collection is noted. No acute fracture, dislocation or osteolysis. SL: BETY 07/14/2016 [facility] Consultation Notes No Data Provided for This Section Discharge Summaries No Data Provided for This Section History and Physicals No Data Provided for This Section Vital Signs Vital Sign Value Date Comments Source Systolic (mm Hg) 172 07/15/2016 [facility] Diastolic (mm Hg) 71 07/15/2016 [facility] Respitory Rate 18 07/15/2016 [facility] Temperature Oral (F) 101.1 F 07/15/2016 [facility] Heart Rate 78 07/15/2016 [facility] Respitory Rate 17 07/15/2016 [facility] Temperature Oral (F) 99.8 F 07/15/2016 [facility] Systolic (mm Hg) 142 07/15/2016 [facility] Diastolic (mm Hg) 56 07/15/2016 [facility] Heart Rate 72 07/15/2016 [facility] Systolic (mm Hg) 149 07/15/2016 [facility] Diastolic (mm Hg) 72 07/15/2016 [facility] Heart Rate 80 07/15/2016 [facility] Temperature Oral (F) 98.6 F 07/15/2016 [facility] Height 177.8 cm 07/15/2016 [facility] BMI Calculated 30.2 07/15/2016 [facility] Weight 95.455 07/15/2016 [facility] Weight 95.455 07/15/2016 [facility] Encounters Location Location Details Encounter Type Encounter Number Reason For Visit Attending Provider ADM Date DC Date Status Source [facility] Inpatient [id number] Prateek Jose 07/15/2016 07/16/2016 [facility] Procedures No Data Provided for This Section Assessment and Plan No Data Provided for This Section Plan of Care No Data Provided for This Section Social History Social History Date Source Social History TypeResponse Smoking Status Never smoker; Exposure to Tobacco Smoke None; Cigarette Smoking Last 365 Days No; Reg Smoking Cessation Counseling No 07/15/2016 [facility] Family History No Data Provided for This Section Advance Directives No Data Provided for This Section Functional Status No Data Provided for This Section
--- OUTSIDE RECORDS SUMMARY | 2019-11-21 21:22 | XMS REPORT | Continuity of Care Document ---
Author Author [facility] t Organization [facility] Address [address] [place] [address] Phone Unavailable Care Team Providers Care Vegetable Picker Name Role Phone NONSTAFF PCP Unavailable Mahsa CANTOR Attphys Unavailable DUCHAMP, A FLAKITA Attphys Unavailable SWEET, A LAIRD Attphys Unavailable ROPPER, EMIR HERIBERTO Attphys Unavailable ALDAIR MARIO Attphys Unavailable SOFÍA GRANT Attphys Unavailable Prateek Jose Attphys FELICIA SANCHEZ Admphys Unavailable ROPPER, EMIR HERIBERTO Admphys Unavailable SAIKIFABRICE Ackerman Admphys Unavailable JUANITASOFÍA MORENO Admphys Unavailable Prateek Jose Admphys Payers Payer Name Policy Type Policy Number Effective Date Expiration Date Serene Shafer Care Medicare Advantage [id number] [facility] Problems Condition Name Condition Details Condition Category Status Onset Date Resolution Date Last Treatment Date Treating Clinician Comments Source Flat back syndrome Flat back syndrome Disease Active 2016-11-10 00:00:0 0 [facility] Lumbar scoliosis Lumbar scoliosis Disease Active 2016-11-10 00:00:00 [facility] Pulmonary embolus Pulmonary embolus Disease Active 2016-07-26 00:00:00 [facility] Dyspnea and respiratory abnormality Dyspnea and respiratory abno rmality Disease Active 2016-07-26 00:00:00 [facility] HCAP (healthcare-associated pneumonia) HCAP (healthcare-asso ciated pneumonia) Disease Active 2016-07-26 00:00:00 [facility] Infection of total left knee replacement, 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, subsequent encounter Disease Active 2016-07-26 00:00:00 [facility] Infection of total knee replacement, initial encounter Infection of total knee replacement, initial encounter Disease Active 2016-07-16 00:00:00 [facility] LOWER BACK PAIN LOWE R BACK PAIN Active 07/14/2016 [facility] Active 2016-07-14 00:00:00 2016-07-14 23:52:00 Ivonne Bhatia CELLULITIS, EFFUSION OF KNEE JOINT LEFT, CELLULITIS, EFFUSION OF KNEE JOINT LEFT, Active 07/14/2016 [facility] A ctive 2016-07-14 00:00:00 2016-07-18 11:33:00 M barrett Bhatia POST DC FU- NO ORDER POST DC FU- NO ORDER Active 08/30/2013 [facility] Diagnosis Active 2013-08-30 00:00:00 2014-02-11 02:08:00 [facility] Spinal cord injury, cervical region Spinal cord injury, cervical region Disease Active 2013-07-31 00:00:00 [facility] Post-operative complication Post-operative complication Disease Active 2013-07-31 00:00:00 [facility] Neurological deficit present Neurological deficit present Disease Active 2013-07-31 00:00:00 [facility] Hypocalcemia Hypocalcemia Disease Active 2013-07-31 00:00:00 [facility] Anemia associated with acute blood loss Anemia associated wi th acute blood loss Disease Active 2013-07-31 00:00:00 [facility] History of steroid therapy History of steroid therapy Disease Active 2013-07-31 00:00:00 [facility] Anxiety Anxiety Disease Active 2013-07-31 00:00:00 [facility] Cervical spondylosis Cervical spondylosis Disease Active 00:00:00 [facility] Hypotension (arterial) Hypotension (arterial) Disease Active 2013-07-31 00:00:00 [facility] Hypertension due to medical or surgical care Hypertens ion due to medical or surgical care Disease Active 2013-07-31 00:00:00 [facility] Hypertensive disorder, systemic arterial (disorder) Hypertensive disorder, systemic arterial (disorder) Resolved Problem 07/18/2016 [facility] Problem Resolved 2016-07-18 04:21:36 [facility] Osteoarthritis (disorder) Oste oarthritis (disorder) Resolved Problem 07/18/2016 [facility] Problem Resolved 2016-07-18 04:21:36 [facility] Cervical myelopathy (disorder) Cervical myelopathy (disorder) Active Problem 07/18/2016 [facility] Problem Active 2016-07-18 04:21:36 [facility] Dysphagia (disorder) Dysp hagia (disorder) Active Problem 07/18/2016 [facility] Problem Active 2016-07-18 04:21:3 6 [facility] Hemiparesis (disorder) Ehsan paresis (disorder) Active Problem 07/18/2016 [facility] Problem Active 2016-07-18 04:21:3 6 [facility] Quadriparesis (disorder) Quad riparesis (disorder) Active Problem 07/18/2016 [facility] Problem Active 2016-07-18 04:21:3 6 [facility] CELLULITIS, UNSPECIFIED CELL ULITIS, UNSPECIFIED Active [facility] Diagnosis Active 2016-07-18 11:33:00 [facility] EFFUSION, LEFT KNEE EFFU TAN, LEFT KNEE Active [facility] Diagnosis Active 2016-07-18 11:33:00 [facility] [place] SIRS OF NON-INFECTIOUS ORIGIN W/O ACUTE SIRS OF NON- INFECTIOUS ORIGIN W/O ACUTE Active [facility] Diagnosis Active 2016-07-18 11:33:00 [facility] Allergies, Adverse Reactions, Alerts Allergy Name Allergy Type Status Severity Reaction(s) Onset Date Inacti ve Date Treating Clinician Comments Source Warfarin Propensity to adverse reactions Active Severe 2018-02 00:00:00 [facility] Atorvastatin Drug Intolerance Active Other (See Comments) 2013-07-24 00:00:00 Muscle pain [facility] Amlodipine Drug Intolerance Active Other (See Comments) 2013-07 00:00:00 [facility]cle pain [facility] Lipitor Lipitor Active [facility] Norvasc Norvasc Active [facility] Social History Social Habit Start Date Stop Date Quantity Comments Source Sex Assigned At [facility] Alcohol Comment 2013-07-24 00:00:00 2013-07-24 00:00:00 seldom [facility] Smoking Status Start Date Stop Date Source Social History [facility] Medications Ordered Medication Name Filled Medication Name Start Date Stop Da te Current Medication? Ordering Clinician Indication Dosage Frequency Signature (SIG) Comments Components Source Alprazolam 0.25 Mg Tablet Alprazolam 0.25 Mg Tablet 2018-03-11 00:00: 00 Yes Trae Almaguer Np .[address] [facility] Cephalexin Monohydrate (Keflex) 500 Mg Capsule Cephale trinity Monohydrate (Keflex) 500 Mg Capsule 2018-03-11 00:00:00 Yes Trae Almaguer Np 500 Every 6 Hours [facility] Hydrocodone/Apap 5MG-325MG 1 Ea Tab Hydrocodone/Apap 5MG-325 MG 1 Ea Tab 2018-03-11 00:00:00 Yes Trae Almaguer Np 1 Every 4 Hours as needed for Moderate Pain (4-6) [facility] Lidocaine Patch 1 Ea Patch Lidocaine Patch 1 Ea Patch 2018-03-11 00:0 0:00 Yes Trae Almaguer Np 1 Daily [facility] Rivaroxaban (Xarelto) 15 Mg Tablet Rivaroxaban (Xarelto) 15 Mg Tablet 2018-03-11 00:00:00 Yes Trae Almaguer Np 15 Twice Daily With M eals [facility] Zolpidem Tartrate (Ambien) 5 Mg Tablet Zolpidem Tartrate (Am marie) 5 Mg Tablet 2018-03-11 00:00:00 Yes Trae Almaguer Np [address] [facility] docusate sodium (COLACE) 100 MG capsule 2016-10-19 11:57:59 Yes 100mg QD Take 100 mg by mouth daily . [facility] lisinopril (PRINIVIL,ZESTRIL) 10 MG tablet 2016-10-19 11:57:59 Yes 10mg QD Take 10 mg by mouth nightly . [facility] senna (SENOKOT) 8.6 mg tablet 2016-10-19 11:57:59 Yes 2{tbl} Take 2 tablets by mouth daily with lunch . [facility] BIFIDOBACTERIUM INFANTIS (ALIGN ORAL) 2016-10-19 11:57:59 Y es QD Take by mouth daily. [facility] ferrous sulfate 325 (65 FE) MG tablet 2016-10-19 11:57:58 Y es 325mg Take 325 mg by mouth daily with breakfast. [facility] cyanocobalamin (VITAMIN B-12) 1000 MCG tablet 2016-10-19 11:57:5 8 Yes 1000ug QD Take 1,000 mcg by mouth daily. [facility] cephalexin (KEFLEX) 500 MG capsule 2016-10-19 11:57:58 Yes 500mg Q.25D Take 500 mg by mouth 4 (four) times daily. [facility] omeprazole (PRILOSEC) 40 MG capsule 2016-10-19 11:57:58 Yes 40mg QD Take 40 mg by mouth daily. [facility] pregabalin (LYRICA) 100 MG capsule 2016-10-19 11:57:58 Y es 100mg [id number] Take 100 mg by mouth 3 (three) times daily. [facility] HYDROcodone-acetaminophen (NORCO 10-325) 10-325 mg per table t 2016-10-19 11:57:58 Yes 1{tbl} Take 1 tab let by mouth every 6 (six) hours as needed for Pain. [facility] atenolol (TENORMIN) 25 MG tablet 2016-08-04 00:00:00 Yes 25mg QD Take 25 mg by mouth nightly. [facility] RN-Do not give Vanc till trough drawn 07/16/16@ 15:30 2016-07-16 22:30:00 No RN-Do not gi ve Vanc till trough drawn 07/16/16@ 15:30, ATTN:RN - REMINDER, Drug form: MISC, Route: MISC, ONCE, 07/16/16 16:30:00 TUBE FILLER, Stop date: 07/16/16 16:30:00 TUBE FILLER Ivonne Bhatia RN-Do not give Vanc till trough drawn 07/16/16@ 16:30 2016-07-16 22:00:00 No RN-Do not gi ve Vanc till trough drawn 07/16/16@ 16:30, ATTN:RN - REMINDER, Drug form: MISC, Route: MISC, ONCE, 07/16/16 16:00:00 TUBE FILLER, Stop date: 07/16/16 16:00:00 TUBE FILLER Ivonne Bhatia cholecalciferol, vitamin D3, 5,000 unit Tab 2016-07-16 00:40:06 Yes 5000U QD Take 5,000 Units by mouth daily. [facility] ypfnnnkk-tsul-tar-folic acid (MULTIVITAM DT-DKXG-AJZYWNKH-FOLIC ACID) 3,500-18-0.4 unit-mg-mg Chew 2016-07-16 00:40:06 Yes 1{tbl} Take 1 tablet by mouth. [facility] vancomycin + sodium chloride 0.9% 500 mL INJ (for IV set) 50 0 mL 2016-07-15 23:00:00 No 2001 mg: infuse over 2.5 hours MEDICATION WASTE Product Size: 1000 mg Product Wasted: ___ mg Ivonne Bhatia ondansetron 2 mg/mL injectable solution 2016-07-15 19:14:00 Yes 4 mg = 2 mL, IVP, Q6H, PRN Nausea & Vomiting, 0 Refill(s) Ivonne Bhatia Morphine 2016-07-15 19:14:00 Yes 2 mg = 1 mL, IVP, Q4H, PRN Pain Score 7-10, 0 Refill(s) Ivonne Bhatia acetaminophen 325 mg oral tablet 2016-07-15 19:14:00 Yes 100.4 F, 0 Refill(s) [facility] heparin 2016-07-15 15:00:00 No Notes: porci ne heparin [facility] tramadol hydrochloride 50 MG Oral Tablet 2016-07-15 11:11:00 Yes 50 mg = 1 tab, PO, BID, PRN Pain Score 6-10, 0 Refill(s) Ivonne Bhatia Senna-gen 8.6 mg oral tablet 2016-07-15 11:11:00 Yes 17.2 mg = 2 tab, PO, Bedtime, PRN for constipation, # 100 tab, 0 Refill(s) Ivonne [address] lisinopril 20 mg oral tablet 2016-07-15 11:11:00 Yes 20 mg = 1 tab, PO, Daily, # 30 tab, 0 Refill(s) Raine Bhatia tizanidine 2 mg oral capsule 2016-07-15 11:11:00 Yes 2 mg = 1 cap, PO, Bedtime, PRN for muscle spasm, take 1 to 2 tabs as needed, # 30 cap, 0 Refill(s) Ivonne Mayoann Vitamin D3 5000 intl units oral capsule 2016-07-15 11:11:00 Yes 5,000 IntlUnit = 1 cap, PO, Daily, # 30 cap, 1 Refill(s) [facility] [address] tizanidine 2 mg oral tablet 2016-07-15 11:11:00 Yes 4 mg = 2 tab, PO, Bedtime, PRN as needed for muscle spasm, take 1 to 2 tabs as needed, 0 Refill(s) [facility] Centrum Silver Men's 2016-07-15 11:11:00 Yes 1 tab, PO, Daily, 0 Refill(s) [facility] [address] Docusate Sodium 100 MG Oral Capsule 2016-07-15 11:11:00 Yes 100 mg = 1 cap, PO, Daily, PRN Constipation, # 20 cap, 0 Refill(s) [facility] [place] Diclofenac 2016-07-15 11:11:00 Yes 75 mg, PO , BID, 0 Refill(s) [facility] [place] simvastatin 10 mg oral tablet 2016-07-15 11:11:00 Yes 10 mg = 1 tab, PO, Bedtime, # 90 tab, 1 Refill(s) Eh Bhatia Atenolol 25 MG Oral Tablet 2016-07-15 11:11:00 Yes 25 mg = 1 tab, PO, Daily, # 30 tab, 0 Refill(s) Raine Bhatia gabapentin 300 MG Oral Capsule 2016-07-15 11:11:00 Yes 600 mg = 2 cap, PO, TID, 0 Refill(s) Ivonne Starr nn Zosyn 2016-07-15 10:00:00 No Notes: (Same as: Zosyn) Dosing based on Piperacillin component MEDICATION WASTE Product Size: 3375 mg Product Wasted: ___ mg [facility] [place] Vancomycin 2016-07-15 10:00:00 No 1 ea, Route: MISC, Dosing Weight 95.455, kg, ONCALL, Start date: 07/15/16 4:00:00 TUBE FILLER, Duration: 1 doses or times, Pharmacy to dose Ivonne Bhatia vancomycin + sodium chloride 0.9% 500 mL INJ (for IV set) 50 0 mL 2016-07-15 09:25:00 No 2001 mg: infuse over 2.5 hours MEDICATION WASTE Product Size: 1000 mg Product Wasted: ___ mg Ivonne Bhatia Morphine 2016-07-15 09:10:00 No Not es: (Same as:MORPhine Sulfate) [facility] Ondansetron 2016-07-15 09:10:00 No Notes: (Same as: Zofran) MEDICATION WASTE Product Size: 4 mg Product Wasted: ___ mg Ivonne Bhatia Acetaminophen 2016-07-15 09:10:00 No Notes: Do not exceed 4 gm/day. (Same as: Tylenol) [facility] [place] Saline Flush 0.9% 2016-07-15 09:10:00 No Notes: (Same as: BD Posiflush) [facility] [address] Sodium Chloride 0.154 MEQ/ML Injectable Solution 2016-07-15 09:1 0:00 No 1,000 mL, Rate: 125 ml/hr, I nfuse over: 8 hr, Route: IV, Dosing Weight 95.455 kg, Total Volume: 1,000, Start date: 07/15/16 3:10:00 TUBE FILLER, Duration: 30 day, Stop date: 08/14/16 3:09:00 TUBE FILLER Ivonne Bhatia Sodium Chloride 0.154 MEQ/ML Injectable Solution 2016-07-15 09:0 1:00 No 3,000 mL, 1000 ml/hr, Infuse Over: 3 hr, Route: IV, 3,000, Drug form: INJ, ONCE, Priority: STAT, Dosing Weight 95.455 kg, Start date: 07/15/16 3:01:00 TUBE FILLER, Duration: 1 doses or times, Stop date: 07/15/16 3:01:00 TUBE FILLER [facility] [address] Vancomycin 2016-07-15 08:50:00 No 1,000 mg, Route: IVPB, Drug form: INJ, ONCE, Dosing Weight 95.455, kg, Priority: STAT, Start date: 07/15/16 2:50:00 TUBE FILLER, Stop date: 07/15/16 2:50:00 TUBE FILLER [facility] Lidocaine Hydrochloride 10 MG/ML Injectable Solution 07-15 06:54:00 No Notes: Preservative free. (Same as: Xyl ocaine MPF) Ivonne [place] Cefazolin 2016-07-15 06:54:00 No Notes: (Same As: AncGarry douglaszol) MEDICATION WASTE Product Size: 1000 mg Product Wasted: ___ mg Ivonne Bhatia Tylenol 2016-07-15 06:51:00 No Notes: Do not exceed 4 gm/day. (Same as: Tylenol) [facility] Ondansetron 2016-07-15 06:50:00 No Notes: (Same as: Zofran) MEDICATION WASTE Product Size: 4 mg Product Wasted: ___ mg [facility] Morphine 2016-07-15 06:50:00 No Not es: (Same as:MORPhine Sulfate) Ivonne [place] Sodium Chloride 0.154 MEQ/ML Injectable Solution 2016-07-15 06:5 0:00 No 1,000 mL, 1000 ml/hr, Infuse Over: 1 hr, Route: IV, 1,000, Drug form: INJ, ONCE, Priority: STAT, Dosing Weight 95.455 kg, Start date: 07/15/16 0:50:00 TUBE FILLER, Duration: 1 doses or times, Stop date: 07/15/16 0:50:00 TUBE FILLER [facility] simvastatin (ZOCOR) 40 MG tablet 2013-11-26 14:41:48 Yes 40mg QD Take 40 mg by mouth nightly. [facility] Atenolol 50 Mg Tablet Atenolol 50 Mg Tablet Yes [address] [facility] Baclofen 10 Mg Tablet Baclofen 10 Mg Tablet Yes 10 Three Times A Day [facility] Cholecalciferol (Vitamin D3) (Vitamin D) 1,000 Unit [place] Cholecalciferol (Vitamin D3) (Vitamin D) 1,000 Unit Tablet Yes [address] [facility] Docusate Sodium 100 Mg Capsule Docusate Sodium 100 Mg Capsule Yes 100 [facility] Fluticasone Propionate 16 Gm [place].susp Fluticasone Propiona te 16 Gm [place].susp Yes 50 Daily [facility] Gabapentin 300 Mg Capsule Gabapentin 300 Mg Capsule Yes 300 Three Times A Day [facility] Lisinopril 10 Mg Tablet Lisinopril 10 Mg Tablet Yes [address] [facility] Multivitamin (Multi-Vitamin Daily) 1 Each Tablet Multi vitamin (Multi-Vitamin Daily) [address] [facility] Tramadol Hcl (Ultram) 50 Mg Tablet Tramadol Hcl (Ultram) 50 Mg Tablet Yes 50 Every 6 Hours [facility] Vital Signs Vital Name Observation Time Observation Value Comments Source Systolic (mm Hg) 2016-07-15 21:41:00 Lavelle [facility] [place] Diastolic (mm Hg) 2016-07-15 21:41:00 Mem o[facility] [place] Respitory Rate 2016-07-15 21:41:00 Mem[facility] [place] Temperature Oral (F) 2016-07-15 21:41:00 101.1 F [facility] Heart Rate 2016-07-15 21:41:00 [facility] [place] Respitory Rate 2016-07-15 17:30:00 Memori [facility] [address] Temperature Oral (F) 2016-07-15 17:30:00 99.8 F [facility] [place] Systolic (mm Hg) 2016-07-15 17:30:00 [facility] [place] Diastolic (mm Hg) 2016-07-15 17:30:00 [facility] [place] Heart Rate 2016-07-15 17:30:00 [facility] [place] Systolic (mm Hg) 2016-07-15 14:34:00 [facility] Diastolic (mm Hg) 2016-07-15 14:34:00 Mem [facility] [address] Heart Rate 2016-07-15 14:34:00 [facility] Temperature Oral (F) 2016-07-15 14:34:00 98.6 F [facility] [place] Height 2016-07-15 10:47:00 177.8 cm [facility] [place] BMI Calculated 2016-07-15 10:47:00 [facility] Weight 2016-07-15 10:47:00 [facility] [place] Weight 2016-07-15 04:20:00 [facility] [place] Procedures This patient has no known procedures. Encounters Start Date/Time End Date/Time [facility] ID Source 2019-05-24 22:54:00 2019-05-25 01:38:00 Departed Emergency Room [facility] [id number] [facility] 2019-05-19 14:42:00 2019-05-19 19:06:00 Departed Emergency Room 1 JONG CANTOR [facility] [id number] [facility] 2018-06-23 13:28:00 2018-06-23 17:22:00 Departed Emergency Room 1 FLAKITA DONOHUE [facility] [id number] [facility] 2018-03-09 00:54:00 2018-03-12 10:33:00 Discharged Inpatient 1 XIOMARA HOFFMAN [facility] [id number] [facility] 2016-07-14 22:14:00 2016-07-15 20:14:00 Outpatient Prateek Jose [facility] [id number] Results Test Description Test Time Test Comments Results Result Comments Source Differential Total Cells Counted 2019-05-25 03:09:00 Test Item Differential Total Cells Counted (test code = Differen tial Total Cells Counted) 100 [facility] % (Manual)2019-05-25 03:09:00 * Test Item Value Reference Range Interpretation Comments Neutrophils % (Manual) (test code = 08350-9) 44 40-74 [facility]Lymphocytes % (Manual)2019-05-25 03:09:00 * Test Item Value Reference Range Interpretation Comments Lymphocytes % (Manual) (test code = 737-7) 40 19-48 [facility] % (Manual)2019-05-25 03:09:00* Test Item Value Reference Range Interpretation Comments Monocytes % (Manual) (test code = 744-3) 10 3.4-9.[address] [facility]Eosinophils % (Manual)2019-05-25 03:09:00 * Test Item Value Reference Range Interpretation Comments Eosinophils % (Manual) (test code = 714-6) 6 0-7 [facility] CenterPlatelet [id number] 03:09:00* Test Item Value Reference Range Interpretation Comments Platelet Estimate (test code = 71105-5) ADEQUATE [facility] CenterPlatelet Morphology [id number] 03:09:00* Test Item Value Reference Range Interpretation Comments Platelet Morphology Comment (test code = 82607-4) NORMAL [facility] CenterRed Cell Morphology [id number] 03:09:00* Test Item Value Reference Range Interpretation Comments Red Cell Morphology Comment (test code = 6742-1) NORMAL [facility] CenterCreatine Kinase [id number] 01:13:00* Test Item Value Reference Range Interpretation Comments Creatine Kinase MB (test code = 75308-0) 4.60 0-5.0 [facility] CenterTroponin [id number] 01:13:00* Test Item Value Reference Range Interpretation Comments Troponin I (test code = JFL2716) 0.005 0-0.300 [facility] [id number] 00:48:00* Test Item Value Reference Range Interpretation Comments Sodium Level (test code = 2951-2) 140 136-145 [facility] CenterPotassium [id number] 00:48:00* Test Item Value Reference Range Interpretation Comments Potassium Level (test code = 2823-3) 4.0 3.5-5.1 [facility] CenterChloride [id number] 00:48:00* Test Item Value Reference Range Interpretation Comments Chloride Level (test code = 2075-0) 102 98-107 [facility] CenterCarbon Dioxide [id number] 00:48:00* Test Item Value Reference Range Interpretation Comments Carbon Dioxide Level (test code = 2028-9) 25 22-29 [facility] CenterAnion [id number] 00:48:00* Test Item Value Reference Range Interpretation Comments Anion Gap (test code = 11692-5) 17.0 8-[address] [facility] CenterBlood Urea [id number] 00:48:00* Test Item Value Reference Range Interpretation Comments Blood Urea Nitrogen (test code = 3094-0) 19 7-26 [facility] CenterCreatinine2019-12-14 00:48:00* Test Item Value Reference Range Interpretation Comments Creatinine (test code = 2160-0) 1.08 0.72-1.25 [facility] CenterBUN/Creatinine [id number] 00:48:00* Test Item Value Reference Range Interpretation Comments BUN/Creatinine Ratio (test code = 3097-3) 18 6-25 [facility] CenterEstimat Glomerular Filtration Rate 2019-05-25 00:48:00* Test Item Value Reference Range Interpretation Comments Estimat Glomerular Filtration Rate (test code = 683539272) > 60 >60 Ranges were taken from the National Kidney Disease Education Program and the [facility] literature.Reference ranges:60 or greater: Galzkt50-00 ( for 3 consecutive months): Chronic kidney disease 15 or less: Kidney failureSt. David's Medical CenterGlucose [id number] 00:48:00* Test Item Value Reference Range Interpretation Comments Glucose Level (test code = MPH1985) 104 74-118 [facility] CenterCalcium [id number] 00:48:00* Test Item Value Reference Range Interpretation Comments Calcium Level (test code = 38228-2) 9.4 8.4-10.2 [facility] CenterTotal [id number] 00:48:00* Test Item Value Reference Range Interpretation Comments Total Bilirubin (test code = 1975-2) 0.4 0.2-1.2 [facility] CenterAspartate Amino Transf (AST/SGOT) 2019-05-25 00:48:00* Test Item Value Reference Range Interpretation Comments Aspartate Amino Transf (AST/SGOT) (test code = Aspartate Amino Transf (AST/SGOT)) 24 5-34 [facility] CenterAlanine Aminotransferase (ALT/SGPT) 2019-05-25 00:48:00* Test Item Value Reference Range Interpretation Comments Alanine Aminotransferase (ALT/SGPT) (test code = 1742-6) 17 0-55 [facility] CenterTotal [id number] 00:48:00* Test Item Value Reference Range Interpretation Comments Total Protein (test code = 2885-2) 8.3 6.5-8.[address] [facility] CenterAlbumin2019-12-14 00:48:00* Test Item Value Reference Range Interpretation Comments Albumin (test code = 1751-7) 3.9 3.5-5.0 [facility] CenterGlobulin2019-12-14 00:48:00* Test Item Value Reference Range Interpretation Comments Globulin (test code = 85682-8) 4.4 2.3-3.[address] [facility] CenterAlbumin/Globulin [id number] 00:48:00 * Test Item Value Reference Range Interpretation Comments Albumin/Globulin Ratio (test code = 1759-0) 0.9 0.8-2.0 [facility] CenterAlkaline [id number] 00:48:00* Test Item Value Reference Range Interpretation Comments Alkaline Phosphatase (test code = 6768-6) 88 40-150 [facility] CenterCreatine [id number] 00:48:00* Test Item Value Reference Range Interpretation Comments Creatine Kinase (test code = 2157-6) 201 30-[address] [facility] CenterWhite Blood [id number] 00:22:00* Test Item Value Reference Range Interpretation Comments White Blood Count (test code = 6690-2) 7.24 4.8-10.8 [facility] CenterRed Blood [id number] 00:22:00* Test Item Value Reference Range Interpretation Comments Red Blood Count (test code = 789-8) 4.88 4.3-5.7 [facility] CenterHemoglobin2019-12-14 00:22:00* Test Item Value Reference Range Interpretation Comments Hemoglobin (test code = 92910-3) 14.7 14.0-18.0 [facility] CenterHematocrit2019-12-14 00:22:00* Test Item Value Reference Range Interpretation Comments Hematocrit (test code = 4544-3) 41.7 38.2-49.6 [facility] CenterMean Corpuscular Tieguy1141-94-30 00:22:00* Test Item Value Reference Range Interpretation Comments Mean Corpuscular Volume (test code = 787-2) 85.5 81-99 [facility] CenterMean Corpuscular Mmdsstgzam5320-46-94 00:22:00* Test Item Value Reference Range Interpretation Comments Mean Corpuscular Hemoglobin (test code = 785-6) 30.1 28-32 [facility] CenterMean Corpuscular Hemoglobin Concent 2019-05-25 00:22:00* Test Item Value Reference Range Interpretation Comments Mean Corpuscular Hemoglobin Concent (test code = 786-4) 35.3 31-[address] [facility] CenterRed Cell Distribution Kkbth6003-00-17 00:22:00* Test Item Value Reference Range Interpretation Comments Red Cell Distribution Width (test code = 80174-8) 13.8 11.7 -14.4 [facility] CenterPlatelet Wduga0280-99-39 00:22:00* Test Item Value Reference Range Interpretation Comments Platelet Count (test code = 777-3) 233 140-360 [facility] CenterNeutrophils (%) (Auto)2019-05-25 00:22:00 * Test Item Value Reference Range Interpretation Comments Neutrophils (%) (Auto) (test code = 20044-2) 45.2 38.7-80.0 [facility] CenterLymphocytes (%) (Auto)2019-05-25 00:22:00 * Test Item Value Reference Range Interpretation Comments Lymphocytes (%) (Auto) (test code = 736-9) 37.6 18.0-39.1 [facility] CenterMonocytes (%) (Auto)2019-05-25 00:22:00* Test Item Value Reference Range Interpretation Comments Monocytes (%) (Auto) (test code = 5905-5) 12.0 4.4-11.[address] [facility] CenterEosinophils (%) (Auto)2019-05-25 00:22:00 * Test Item Value Reference Range Interpretation Comments Eosinophils (%) (Auto) (test code = 713-8) 4.4 0.0-6.0 [facility] CenterBasophils (%) (Auto)2019-05-25 00:22:00* Test Item Value Reference Range Interpretation Comments Basophils (%) (Auto) (test code = 706-2) 0.4 0.0-1.0 [facility] CenterIM GRANULOCYTES %2019-05-25 00:22:00* Test Item Value Reference Range Interpretation Comments IM GRANULOCYTES % (test code = IM GRANULOCYTES %) 0.4 0.0- 1.0 [facility] CenterNeutrophils # (Auto)2019-05-25 00:22:00* Test Item Value Reference Range Interpretation Comments Neutrophils # (Auto) (test code = 751-8) 3.3 2.1-6.9 [facility] CenterLymphocytes # (Auto)2019-05-25 00:22:00* Test Item Value Reference Range Interpretation Comments Lymphocytes # (Auto) (test code = 66630-8) 2.7 1.0-3.2 [facility] CenterMonocytes # (Auto)2019-05-25 00:22:00* Test Item Value Reference Range Interpretation Comments Monocytes # (Auto) (test code = 742-7) 0.9 0.2-0.[address] [facility] CenterEosinophils # (Auto)2019-05-25 00:22:00* Test Item Value Reference Range Interpretation Comments Eosinophils # (Auto) (test code = 711-2) 0.3 0.0-0.4 [facility] CenterBasophils # (Auto)2019-05-25 00:22:00* Test Item Value Reference Range Interpretation Comments Basophils # (Auto) (test code = 704-7) 0.0 0.0-0.1 [facility] CenterAbsolute Immature Granulocyte (auto 2019-05-25 00:22:00* Test Item Value Reference Range Interpretation Comments Absolute Immature Granulocyte (auto (digna t code = Absolute Immature Granulocyte (auto) 0.03 0-0.1 [facility] CenterCXR 2 VIEW - MMLJ1570-45-33 15:24:00 [place] [address] Patient Name: SOPHIE DUNNE MR #: [id number] : 1945 Age/Sex: 73/M Req #: [id number] Adm Physician: Ordered by: JONG CANTOR MD Report #: [id number] Location: FS Room/Bed: Procedure: [id number] HOPD /CXR 2 VIEW - HOPD Exam Date: 05/19/19 Exam Time: 15 10 REPORT STATUS: Signed EXAMINA TION: CXR 2 VIEW - HOPD INDICATION: Shortness of breath, cough [id number] COMPARISON: None FINDINGS: PA and lateral views TUBES and LINES: None. LUNGS: Diffuse pulmonary hyperinflation consis tent with COPD. There is no evidence of pneumonia or pulmonary edema. PL EURA: No pleural effusion or pneumothorax. HEART AND MEDIASTINUM: The hea rt is top normal in size to mildly enlarged. The descending thoracic aorta is tortuous. BONES AND SOFT TISSUES: Pedicle screws and vertical stabilizing bars in the lower cervical spine are intact. Degenerative changes of the thor acic spine. No focal osseous lesions. Soft tissues are unremarkable. UPP ER ABDOMEN: Unremarkable. IMPRESSION: Pulmonary hyperinflation consi stent with COPD. No acute pulmonary process. Signed by: Dr. Chelo cameron MD on 05/19/2019 3:25 PM Dictated By: CHELO BARRIOS MD Electro nically Signed By: CHELO BARRIOS MD on 05/19/19 1525 Transcribed By: ALLISON Ackerman on 05/19/19 1525 COPY TO: JONG CANTOR MD CT ANGIO CHEST-HOPD 2018-06-23 16:34:00 [facility] [address] [place] [address] Patient Name: SOPHIE DUNNE MR #: [id number] : 1945 Age/Sex: 73/M Req #: [id number] Adm Physician: Ordered by: FLAKITA DONOHUE MD Report #: [id number] Location: FS Room/Bed: Procedure: [id number] HO PD/CT ANGIO CHEST-HOPD Exam Date: 06/23/18 Exam Time : 1522 REPORT STATUS: Signed EXA M: CTA Chest- PE Protocol INDICATION: Rule out pulmonary embolism. C OMPARISON: CT Chest PE protocol 03/09/18. TECHNIQUE: Multidetector CT scann ing of the chest was performed. Coronal and sagittal multiplanar reformations were obtained. Dose modulation, iterative reconstruction, and/or weight based adjustment of the mA/kV was utilized to reduce the radiation dose to as low as reasonably achievable. PE protocol performed. IV Contrast: 100 cc Isovue- 370 CTDIvol has been reviewed. It is below the limits set by the Radiation Protocol Committee (RPC). FINDINGS: LINES: None LUNGS AND AIRWAYS: The trachea and major bronchi are unremarkable. Scattered atelectatic changes. Interval resolution of groundglass opacities of the right lung base. Motion and technique limit evaluation for small lung nodules. PLEURA: No evidence of pleural effusion or pneumothorax. HEART, MEDIASTINUM, VESSELS: Mild cardiomegaly. Mild left ventricular wall thickening. No evidence of pericardia l effusion. Moderate atherosclerotic changes of the thoracic aorta. Ascending aortic ectasia measuring up to 4.2 cm. Small hiatal hernia. PULMONARY ART ERIES: Satisfactory for evaluation of pulmonary embolism to the segmental leve l. Main pulmonary artery measures 3.5 cm. Interval resolution of previously no mason bilateral pulmonary emboli. No evidence of pulmonary embolism to the level of the segmental pulmonary arteries. Previously visualized questionable filli ng defect in the left lower lobe pulmonary vein is no longer seen. UPPER ABDOMEN: Limited visualization of the upper abdomen demonstrates no evidence o f abnormality in the liver, spleen, or adrenal glands. BONES/SOFT TISSUES: No acute osseous abnormality. IMPRESSION: Interval resolution of a bilat eral pulmonary emboli. No evidence of pulmonary embolism to the level of the s egmental pulmonary arteries. Enlarged main pulmonary artery measuring up t o 3.5 cm suggestive of pulmonary arterial hypertension. Signed by: Dr. Dulce Jay MD on 06/23/2018 4:46 PM Dictated By: DULCE MARCELINO MD 46 Transcribed By: NICKI on 06/23/181645 COPY TO: FLAKITA DONOHUE MD Sodium Level 2018-03-12 06:40:00* Test Item Value Reference Range Interpretation Comments Sodium Level (test code = 2951-2) 139 136-145 [facility] CenterPotassium Ofusc5724-52-50 06:40:00* Test Item Value Reference Range Interpretation Comments Potassium Level (test code = 2823-3) 3.7 3.5-5.1 [facility] CenterChloride Rhoyz7061-15-18 06:40:00* Test Item Value Reference Range Interpretation Comments Chloride Level (test code = 2075-0) 107 98-107 [facility] CenterCarbon Dioxide Avtjq3009-02-64 06:40:00* Test Item Value Reference Range Interpretation Comments Carbon Dioxide Level (test code = 2028-9) 23 22-29 [facility] CenterAnion Wok2337-22-48 06:40:00* Test Item Value Reference Range Interpretation Comments Anion Gap (test code = 09930-3) 12.7 8-16 [facility] CenterBlood Urea Jftsnqtq1917-64-46 06:40:00* Test Item Value Reference Range Interpretation Comments Blood Urea Nitrogen (test code = 3094-0) 15 7-26 [facility] CenterCreatinine2018-10-01 06:40:00* Test Item Value Reference Range Interpretation Comments Creatinine (test code = 2160-0) 0.76 0.72-1.25 [facility] CenterBUN/Creatinine Fmemy9614-81-98 06:40:00* Test Item Value Reference Range Interpretation Comments BUN/Creatinine Ratio (test code = 3097-3) 20 6-25 [facility] CenterEstimat Glomerular Filtration Rate 2018-03-12 06:40:00* Test Item Value Reference Range Interpretation Comments Estimat Glomerular Filtration Rate (test code = 642294771) 60- >60 Ranges were taken from the National Kidney Disease Education Program and the [facility] literature.Reference ranges:60 or greater: Xaezpu00-91 ( for 3 consecutive months): Chronic kidney disease 15 or less: Kidney failureSt. David's Medical CenterGlucose Ngeps9948-93-27 06:40:00* Test Item Value Reference Range Interpretation Comments Glucose Level (test code = UNK5818) 107 74-118 [facility] CenterCalcium Hokhf6890-06-81 06:40:00* Test Item Value Reference Range Interpretation Comments Calcium Level (test code = 67351-7) 8.5 8.4-10.2 [facility]vineodium Gazci7007-67-18 06:40:00* Test Item Value Reference Range Interpretation Comments Sodium Level (test code = 2951-2) 139 136-145 [facility] CenterPotassium Velmq4480-87-01 06:40:00* Test Item Value Reference Range Interpretation Comments Potassium Level (test code = 2823-3) 3.7 3.5-5.1 [facility] CenterChloride Xseve9653-88-93 06:40:00* Test Item Value Reference Range Interpretation Comments Chloride Level (test code = 2075-0) 107 98-107 [facility] CenterCarbon Dioxide Sreid3542-54-70 06:40:00* Test Item Value Reference Range Interpretation Comments Carbon Dioxide Level (test code = 2028-9) 23 22-29 [facility] CenterAnion Irp1868-65-53 06:40:00* Test Item Value Reference Range Interpretation Comments Anion Gap (test code = 30743-2) 12.7 8-16 [facility] CenterBlood Urea Cpotrker8308-82-42 06:40:00* Test Item Value Reference Range Interpretation Comments Blood Urea Nitrogen (test code = 3094-0) 15 7-26 [facility] CenterCreatinine2018-10-01 06:40:00* Test Item Value Reference Range Interpretation Comments Creatinine (test code = 2160-0) 0.76 0.72-1.25 [facility] CenterBUN/Creatinine Yhzun7246-15-66 06:40:00* Test Item Value Reference Range Interpretation Comments BUN/Creatinine Ratio (test code = 3097-3) 20 6- [facility] Medical CenterEstimat Glomerular Filtration Rate 2018-03-12 06:40:00* Test Item Value Reference Range Interpretation Comments Estimat Glomerular Filtration Rate (test code = 597363221) > 60 >60 Ranges were taken from the National Kidney Disease Education Program and the [facility] Kidney Foundation literature.Reference ranges:60 or greater: Ynpxyz42-60 ( for 3 consecutive months): Chronic kidney disease 15 or less: Kidney failureSt. David's Medical CenterGlucose Jahda8669-51-86 06:40:00* Test Item Value Reference Range Interpretation Comments Glucose Level (test code = YPR8065) 107 74-118 [facility] CenterCalcium Hmxrq5743-51-17 06:40:00* Test Item Value Reference Range Interpretation Comments Calcium Level (test code = 02595-8) 8.5 8.4-10.2 [facility] CenterWhite Blood Opagw8033-04-33 06:27:00* Test Item Value Reference Range Interpretation Comments White Blood Count (test code = 6690-2) 5.57 4.8-10.8 [facility] CenterRed Blood Kqwim4029-62-64 06:27:00* Test Item Value Reference Range Interpretation Comments Red Blood Count (test code = 789-8) 4.26 4.3-5.[address] [facility] CenterHemoglobin2018-10-01 06:27:00* Test Item Value Reference Range Interpretation Comments Hemoglobin (test code = 96844-9) 12.9 14.0-18.[address] [facility] CenterHematocrit2018-10-01 06:27:00* Test Item Value Reference Range Interpretation Comments Hematocrit (test code = 4544-3) 36.8 38.2-49.[address] [facility] CenterMean Corpuscular Eolosx4598-14-67 06:27:00* Test Item Value Reference Range Interpretation Comments Mean Corpuscular Volume (test code = 787-2) 86.4 81-99 [facility] CenterMean Corpuscular Taavddoahk8988-81-45 06:27:00* Test Item Value Reference Range Interpretation Comments Mean Corpuscular Hemoglobin (test code = 785-6) 30.3 28-32 [facility] Corp[facility] Hemoglobin Concent 2018-03-12 06:27:00* Test Item Value Reference Range Interpretation Comments Mean Corpuscular Hemoglobin Concent (test code = 786-4) 35.1 31-[address] [facility] CenterRed Cell Distribution Evnqz7501-90-61 06:27:00* Test Item Value Reference Range Interpretation Comments Red Cell Distribution Width (test code = 49279-0) 13.3 11.7 -14.4 [facility] CenterPlatelet Cpfan2470-84-05 06:27:00* Test Item Value Reference Range Interpretation Comments Platelet Count (test code = 777-3) 224 140-360 [facility] CenterNeutrophils (%) (Auto)2018-03-12 06:27:00 * Test Item Value Reference Range Interpretation Comments Neutrophils (%) (Auto) (test code = 95411-4) 52.0 38.7-80.0 [facility] CenterLymphocytes (%) (Auto)2018-03-12 06:27:00 * Test Item Value Reference Range Interpretation Comments Lymphocytes (%) (Auto) (test code = 736-9) 28.4 18.0-39.1 [facility] CenterMonocytes (%) (Auto)2018-03-12 06:27:00* Test Item Value Reference Range Interpretation Comments Monocytes (%) (Auto) (test code = 5905-5) 11.5 4.4-11.[address] [facility] CenterEosinophils (%) (Auto)2018-03-12 06:27:00 * Test Item Value Reference Range Interpretation Comments Eosinophils (%) (Auto) (test code = 713-8) 6.8 0.0-6.[address] [facility] CenterBasophils (%) (Auto)2018-03-12 06:27:00* Test Item Value Reference Range Interpretation Comments Basophils (%) (Auto) (test code = 706-2) 1.1 0.0-1.[address] [facility] CenterIM GRANULOCYTES %2018-03-12 06:27:00* Test Item Value Reference Range Interpretation Comments IM GRANULOCYTES % (test code = IM GRANULOCYTES %) 0.2 0.0- 1.0 [facility] CenterNeutrophils # (Auto)2018-03-12 06:27:00* Test Item Value Reference Range Interpretation Comments Neutrophils # (Auto) (test code = 751-8) 2.9 2.1-6.9 [facility] CenterLymphocytes # (Auto)2018-03-12 06:27:00* Test Item Value Reference Range Interpretation Comments Lymphocytes # (Auto) (test code = 20686-7) 1.6 1.0-3.2 [facility] CenterMonocytes # (Auto)2018-03-12 06:27:00* Test Item Value Reference Range Interpretation Comments Monocytes # (Auto) (test code = 742-7) 0.6 0.2-0.8 [facility] CenterEosinophils # (Auto)2018-03-12 06:27:00* Test Item Value Reference Range Interpretation Comments Eosinophils # (Auto) (test code = 711-2) 0.4 0.0-0.4 [facility] CenterBasophils # (Auto)2018-03-12 06:27:00* Test Item Value Reference Range Interpretation Comments Basophils # (Auto) (test code = 704-7) 0.1 0.0-0.1 [facility] CenterAbsolute Immature Granulocyte (auto 2018-03-12 06:27:00* Test Item Value Reference Range Interpretation Comments Absolute Immature Granulocyte (auto (digna t code = Absolute Immature Granulocyte (auto) 0.01 0-0.1 [facility] CenterWhite Blood Lpjli6654-32-82 06:27:00* Test Item Value Reference Range Interpretation Comments White Blood Count (test code = 6690-2) 5.57 4.8-10.8 [facility] CenterRed Blood Hwjev2392-17-66 06:27:00* Test Item Value Reference Range Interpretation Comments Red Blood Count (test code = 789-8) 4.26 4.3-5.[address] [facility] CenterHemoglobin2018-10-01 06:27:00* Test Item Value Reference Range Interpretation Comments Hemoglobin (test code = 34654-2) 12.9 14.0-18.[address] [facility] CenterHematocrit2018-10-01 06:27:00* Test Item Value Reference Range Interpretation Comments Hematocrit (test code = 4544-3) 36.8 38.2-49.[address] [facility] CenterMean Corpuscular Bulpmz5654-49-33 06:27:00* Test Item Value Reference Range Interpretation Comments Mean Corpuscular Volume (test code = 787-2) 86.4 81-99 [facility] CenterMean Corpuscular Mbwgtzdwsj1140-78-57 06:27:00* Test Item Value Reference Range Interpretation Comments Mean Corpuscular Hemoglobin (test code = 785-6) 30.3 28-32 [facility] CenterMean Corpuscular Hemoglobin Concent 2018-03-12 06:27:00* Test Item Value Reference Range Interpretation Comments Mean Corpuscular Hemoglobin Concent (test code = 786-4) 35.1 31-[address] [facility] CenterRed Cell Distribution Aciol8446-48-01 06:27:00* Test Item Value Reference Range Interpretation Comments Red Cell Distribution Width (test code = 68291-0) 13.3 11.7 -14.4 [facility] CenterPlatelet Kjihr3088-77-09 06:27:00* Test Item Value Reference Range Interpretation Comments Platelet Count (test code = 777-3) 224 140-360 [facility] CenterNeutrophils (%) (Auto)2018-03-12 06:27:00 * Test Item Value Reference Range Interpretation Comments Neutrophils (%) (Auto) (test code = 97231-3) 52.0 38.7-80.0 [facility] CenterLymphocytes (%) (Auto)2018-03-12 06:27:00 * Test Item Value Reference Range Interpretation Comments Lymphocytes (%) (Auto) (test code = 736-9) 28.4 18.0-39.1 [facility] CenterMonocytes (%) (Auto)2018-03-12 06:27:00* Test Item Value Reference Range Interpretation Comments Monocytes (%) (Auto) (test code = 5905-5) 11.5 4.4-11.[address] [facility] CenterEosinophils (%) (Auto)2018-03-12 06:27:00 * Test Item Value Reference Range Interpretation Comments Eosinophils (%) (Auto) (test code = 713-8) 6.8 0.0-6.[address] [facility] CenterBasophils (%) (Auto)2018-03-12 06:27:00* Test Item Value Reference Range Interpretation Comments Basophils (%) (Auto) (test code = 706-2) 1.1 0.0-1.[address] [facility] CenterIM GRANULOCYTES %2018-03-12 06:27:00* Test Item Value Reference Range Interpretation Comments IM GRANULOCYTES % (test code = IM GRANULOCYTES %) 0.2 0.0- 1.0 [facility] CenterNeutrophils # (Auto)2018-03-12 06:27:00* Test Item Value Reference Range Interpretation Comments Neutrophils # (Auto) (test code = 751-8) 2.9 2.1-6.9 [facility] CenterLymphocytes # (Auto)2018-03-12 06:27:00* Test Item Value Reference Range Interpretation Comments Lymphocytes # (Auto) (test code = 66333-9) 1.6 1.0-3.2 [facility] CenterMonocytes # (Auto)2018-03-12 06:27:00* Test Item Value Reference Range Interpretation Comments Monocytes # (Auto) (test code = 742-7) 0.6 0.2-0.8 [facility] CenterEosinophils # (Auto)2018-03-12 06:27:00* Test Item Value Reference Range Interpretation Comments Eosinophils # (Auto) (test code = 711-2) 0.4 0.0-0.4 [facility] CenterBasophils # (Auto)2018-03-12 06:27:00* Test Item Value Reference Range Interpretation Comments Basophils # (Auto) (test code = 704-7) 0.1 0.0-0.1 [facility] CenterAbsolute Immature Granulocyte (auto 2018-03-12 06:27:00* Test Item Value Reference Range Interpretation Comments Absolute Immature Granulocyte (auto (digna t code = Absolute Immature Granulocyte (auto) 0.01 0-0.1 [facility] CenterMagnesium Hxamd1952-15-03 15:44:00* Test Item Value Reference Range Interpretation Comments Magnesium Level (test code = 78943-9) 1.8 1.3-2.1 [facility] CenterMagnesium Iqfib3477-38-05 15:44:00* Test Item Value Reference Range Interpretation Comments Magnesium Level (test code = 73559-8) 1.8 1.3-2.1 [facility] CenterProthrombin Rnmc5073-20-32 15:33:00* Test Item Value Reference Range Interpretation Comments Prothrombin Time (test code = 5902-2) 12.6 11.9-14.5 [facility] CenterProthromb Time International Ratio 2018-03-11 15:33:00* Test Item Value Reference Range Interpretation Comments Prothromb Time International Ratio (test code = 6301-6) 0.87 Oral Anticoagulant Therapy INR Values:1. Low Intensity Therapy 1.5 - 2.02 . Moderate Intensity Therapy 2.0 - 3.03. High Intensity Therapy(1) 2.5 - 3. 54. High Intensity Therapy(2) 3.0 - 4.05. Panic Value INR > 5.0 [facility] CenterProthrombin Owwl3677-69-33 15:33:00* Test Item Value Reference Range Interpretation Comments Prothrombin Time (test code = 5902-2) 12.6 11.9-14.5 [facility] CenterProthromb Time International Ratio 2018-03-11 15:33:00* Test Item Value Reference Range Interpretation Comments Prothromb Time International Ratio (test code = 6301-6) 0.87 Oral Anticoagulant Therapy INR Values:1. Low Intensity Therapy 1.5 - 2.02 . Moderate Intensity Therapy 2.0 - 3.03. High Intensity Therapy(1) 2.5 - 3. 54. High Intensity Therapy(2) 3.0 - 4.05. Panic Value INR > 5.0 [facility] CenterTriglycerides Fmlcs4811-29-65 05:16:00* Test Item Value Reference Range Interpretation Comments Triglycerides Level (test code = 2571-8) 70 0-149 [facility] CenterCholesterol Rtiok9647-26-44 05:16:00* Test Item Value Reference Range Interpretation Comments Cholesterol Level (test code = 2093-3) 135 0-199 Less than 200 mg/dL Low Ddlz842 - 239 mg/dL Borderline Cyjm456 m g/dl and greater High Risk [facility] CenterLDL Nayfgcmfhuy3454-68-24 05:16:00* Test Item Value Reference Range Interpretation Comments LDL Cholesterol (test code = 2089-1) 80 60-130 [facility] CenterHDL Jacrvhabfne2967-40-64 05:16:00* Test Item Value Reference Range Interpretation Comments HDL Cholesterol (test code = 2085-9) 41 40-60 [facility] CenterCholesterol/HDL Igeyi9840-07-78 05:16:00 * Test Item Value Reference Range Interpretation Comments Cholesterol/HDL Ratio (test code = 9830-1) 3.3 3.9-4.[address] [facility] CenterTriglycerides Xhprt0988-04-13 05:16:00* Test Item Value Reference Range Interpretation Comments Triglycerides Level (test code = 2571-8) 70 0-149 [facility] CenterCholesterol Qxvzr6592-81-23 05:16:00* Test Item Value Reference Range Interpretation Comments Cholesterol Level (test code = 2093-3) 135 0-199 Less than 200 mg/dL Low Mals976 - 239 mg/dL Borderline Eyyw894 m g/dl and greater High Risk [facility] CenterLDL Tozrllntjbu6870-89-47 05:16:00* Test Item Value Reference Range Interpretation Comments LDL Cholesterol (test code = 2089-1) 80 60-130 [facility] CenterHDL Cmgfpaapkzz5130-69-80 05:16:00* Test Item Value Reference Range Interpretation Comments HDL Cholesterol (test code = 2085-9) 41 40-60 [facility] CenterCholesterol/HDL Uxcpb1514-13-02 05:16:00 * Test Item Value Reference Range Interpretation Comments Cholesterol/HDL Ratio (test code = 9830-1) 3.3 3.9-4.[address] [facility] CenterCreatine Kinase XP1501-56-04 00:27:00* Test Item Value Reference Range Interpretation Comments Creatine Kinase MB (test code = 11749-0) 1.60 0-5.0 [facility] CenterTroponin G5646-31-02 00:27:00* Test Item Value Reference Range Interpretation Comments Troponin I (test code = KIJ8566) 0.008 0-0.300 [facility] CenterCreatine Kinase WP3590-95-04 00:27:00* Test Item Value Reference Range Interpretation Comments Creatine Kinase MB (test code = 03666-0) 1.60 0-5.0 [facility] CenterTrcherokee medical centern M8739-50-04 00:27:00* Test Item Value Reference Range Interpretation Comments Troponin I (test code = GBZ2528) 0.008 0-0.300 [facility] CenterCreatine Uijgwd1473-13-93 00:22:00* Test Item Value Reference Range Interpretation Comments Creatine Kinase (test code = 2157-6) 98 30-200 [facility] CenterCreatine Xicapr0570-79-72 00:22:00* Test Item Value Reference Range Interpretation Comments Creatine Kinase (test code = 2157-6) 98 30-200 [facility] CenterHemoglobin A1c Vxdqgsg0755-12-38 13:20:00 * Test Item Value Reference Range Interpretation Comments Hemoglobin A1c Percent (test code = Hemoglobin A1c Percent) 5.2 4.0-7.0 [facility] CenterHemoglobin A1c Gtpmiig5946-94-24 13:20:00 * Test Item Value Reference Range Interpretation Comments Hemoglobin A1c Percent (test code = Hemoglobin A1c Percent) 5.2 4.0-7.0 [facility] CenterActivated Partial Thromboplast Time 2018-03-09 01:17:00* Test Item Value Reference Range Interpretation Comments Activated Partial Thromboplast Time (test code = 16382-0) 29.5 23.8-35.5 [facility] CenterActivated Partial Thromboplast Time 2018-03-09 01:17:00* Test Item Value Reference Range Interpretation Comments Activated Partial Thromboplast Time (test code = 14492-9) 29.5 [facility]5 [facility] [id number] 01:13:00 [facility] [address] [address] Patient Name: SOPHIE DUNNE MR #: [id number] : 1945 Age/Sex: 72/M Req #: [id number] Adm Physician: Ordered by: XIOMARA HOFFMAN MD Report #: [id number] Location: [facility]/Bed: Procedure: HOPD/CXR 1 VEW - HOPD Exam Date: 03/09/18 Exam Time: 001 REPORT STAT US: Signed Exam: AP view of the chest Indication: Shortness of breath and c hest pain Comparison: CT of the chest March 09, 2018 Findings: The heart is within normal size limits for technique. Partially visualized lower c ervical spine surgical hardware. The lungs are clear. Impression: No acut e cardiothoracic abnormality. See same-day CT chest for findings of pulmonary emboli. Signed by: Dr. Kia Vega M.D. on 03/09/2018 1:14 AM Dictated By: KIA VEGA MD 3 COPY TO: JOSE R HOFFMAN MD CT CHEST WITH FWEEAGOW-[id number] 00:39:[address] [address] Patient Name: SOPHIE DUNNE MR #: [id number] : 1945 Age/Sex: 72/M Req #: [id number] Adm Physician: Ordered by: XIOMARA HOFFMAN MD Report #: [id number] Location: [facility]/Bed: Procedure: HOPD/CT CHEST WITH CONT RAST-HOPD Exam Date: 03/09/18 Exam Time: 9 REPORT STATUS: Signed EXAM: CTA of the chest INDICATION: Chest pain and sh ortness of breath COMPARISON: None TECHNIQUE: Multidetector CT scanning of the chest was performed. Coronal and sagittal multiplanar reformations were o btained. Dose modulation, iterative reconstruction, and/or weight based adjust ment of the mA/kV was utilized to reduce the radiation dose to as low as reaso nably achievable. PE protocol performed. IV Contrast: 150 cc Isovue-370 CT DIvol has been reviewed. It is below the limits set by the Radiation Protocol Committee (RPC). FINDINGS: LUNGS AND AIRWAYS: The trachea and major bronc hi are unremarkable. Scattered atelectatic changes. Faint groundglass opacitie s in the right lung base. PLEURA: Trace right pleural effusion. HEAR T, MEDIASTINUM, VESSELS: The heart is at the upper limits of normal in size wi th left ventricular wall thickening. No abnormal pericardial effusion. Calcifi ed atherosclerotic changes of the thoracic aorta without aneurysm. Filling defects in the distal right main pulmonary artery with extension into segmenta l and subsegmental branches of the right upper, right middle and right lower l obe, with the greatest burden in the right lower lobe pulmonary arteries. Juan F tional thrombi seen in subsegmental branches of the left upper and left lower lobe. Questionable thrombus involving the left lower pulmonary vein. (Series 2 , image 61). UPPER ABDOMEN: No acute findings. MUSCULOSKELETAL: No acu te findings. IMPRESSION: Acute pulmonary emboli involving the distal righ t main pulmonary artery with extension into segmental and subsegmental branche s of the right upper, right middle and right lower lobe as well as subsegmenta l branches of the left upper and left lower lobe. Greatest thrombus burden is in the right lower lobe pulmonary arteries with associated groundglass opaciti es but no consolidative infarct. No CT findings of right heart strain. Fi ndings discussed with Dr. Hoffman 1241 hrs March 09, 2018 Signed by: Jg Vega M.D. on 03/09/2018 12:50 AM Dictated By: KIA MCGILL MD Transcribed By: NICKI on 03/09/1849 COPY TO: XIOMARA HOFFMAN MD TISSUE [id number] 17:13:00Surgical Pathology Report Case: [id number] Authorizing Provider: Marino Grant, Collected: 07/18/2016 1646 Ordering Location: [address] Received: 07/19/2016 0858 Service Pathologist: Tyler Iyer MD Specimen: Explant, LEFT KNEE POLY - HARDWARE LEFT KNEE POLY HARDWARE, REMOVAL: - HARDWARE IDENTIFIED (GROSS DIAGNOSIS ONLY)SD/CG/pl Signing Pathologist Direct Phone Line: [phone] signed by Tyler Iyer MD on 11/22/2016 at 5:13 [id number] abscessLeft knee poly hardwareThe specimen is received in a fluidless container labeled with patient information and labeled "left knee poly hardware" and consists of tibial condyles, off white orthopedic hardware measuring 7.5 x 4 x 0.7 cm. Writing on the hardware is: [id number]. The specimen is submitted for gross identification only. CG/plTISSUE [id number] 11:26:00Surgical Pathology Report Case: [id number] Authorizing Provider: Heriberto Zee MD Collected: 11/11/2016 1457 Ordering Location: [facility] Received: 11/14/2016 0910 SERVICES Pathologist: Familia Cortez MD Specimen: Soft Tissue, Other, lumbar epidural phlegmon VERTEBRAL COLUMN, LUMBAR, EPIDURAL, LAMINECTOMY AND DECOMPRESSION:GRANULATION TISSUE WITH CHRONIC INFLAMMATION, FOREIGN BODY GIANT C ELL REACTION AND FOCAL NECROSISBONE WITH INTRAMEDULLARY FIBROSIS AND REMODELINGE lectronically signed by Familia Cortez MD on 11/22/2016 at 11:26 AMThe specimen was examined in its entirety. No acute inflammation or definite abscess is iden tified. Stains for acid fast bacilli, fungi and bacterial organisms are negative .21301; [id number] of lumbar, flat back sydnromeLumbar epidural phlegmonRe ceived fresh labeled "soft tissue, other", description "lumbar epidural phlegmon " is a 1.5 x 0.7 x 0.5 cm pink-mukherjee to kline-white irregular rubbery fragment of s oft and osseous tissue. The specimen is bisected and entirely submitted in casse tte A1 for decalcification. DB/plPerformedTISSUE [id number] 13:22:00Surgical Pathology Report Case: [id number] Authorizing Provider: Heriberto Zee MD Collected: 11/10/2016 1052 Ordering Location: [facility] Received: 11/10/2016 1105 SERVICES Pathologist: Familia Cortez MD Specimen: Disc L4-5 VERTEBRAL COLUMN, INTERVERTEBRAL DISC, L4-5, DISCECT DANNY:FIBROCARTILAGINOUS DEGENERATIONSMALL FRAGMENTS OF BONE 82099; 95759Lrbmeingn of lumbar sp ine, unspecified scoliosis type, flat back syndromeDisc L4-5Specimen is received in saline labeled with the patient's information and labeled "disc L4-5" consis ts of multiple fragments of mukherjee-pink fibrocartilaginous tissue measuring 2.0 x 1 .0 x 0.5 cm in aggregate, submitted entirely in A1 for decalcification. CG/ewPer formedCRITTENDEN COUNTY [facility] W/PLT COUNT & AUTO [id number] 05:13:00* Test Item Value Reference Range Interpretation Comments WHITE BLOOD CELL COUNT (BEAKER) (test code = 775) 6.8 K/ L 4.0- 10.0 RED BLOOD CELL COUNT (BEAKER) (test code = 761) 2.82 M/ L 4.20-5 .80 L HEMOGLOBIN (BEAKER) (test code = 410) 8.1 GM/DL 13.0-16.8 L HEMATOCRIT (BEAKER) (test code = 411) 25.0 % 40.0-50.0 L MEAN CORPUSCULAR VOLUME (BEAKER) (test code = 753) 88.9 fL 82. 0-98.0 MEAN CORPUSCULAR HEMOGLOBIN (BEAKER) (test code = 751) 28.6 pg 27.0-33.0 MEAN CORPUSCULAR HEMOGLOBIN CONC (BEAKER) (test code = 752) 32.2 GM/DL 32.0-36.0 RED CELL DISTRIBUTION WIDTH (BEAKER) (test code = 412) 15.0 % 10.3-14.2 H PLATELET COUNT (BEAKER) (test code = 756) 204 K/CU MM 150-430 MEAN PLATELET VOLUME (BEAKER) (test code = 754) 9.4 fL 6.5-10 .5 NUCLEATED RED BLOOD CELLS (BEAKER) (test code = 413) 0 /100 WBC 0 -0 NEUTROPHILS RELATIVE PERCENT (BEAKER) (test code = 429) 54 % LYMPHOCYTES RELATIVE PERCENT (BEAKER) (test code = 430) 30 % MONOCYTES RELATIVE PERCENT (BEAKER) (test code = 431) 10 % EOSINOPHILS RELATIVE PERCENT (BEAKER) (test code = 432) 5 % BASOPHILS RELATIVE PERCENT (BEAKER) (test code = 437) 0 % NEUTROPHILS ABSOLUTE COUNT (BEAKER) (test code = 670) 3.69 K/ L 1.80-8.00 LYMPHOCYTES ABSOLUTE COUNT (BEAKER) (test code = 414) 2.04 K/ L 1.48-4.50 MONOCYTES ABSOLUTE COUNT (BEAKER) (test code = 415) 0.69 K/ L 0. 00-1.30 EOSINOPHILS ABSOLUTE COUNT (BEAKER) (test code = 416) 0.35 K/ L 0.00-0.50 BASOPHILS ABSOLUTE COUNT (BEAKER) (test code = 417) 0.02 K/ L 0. 00-0.20 0.00PROTHROMBIN [id number] 05:01:00* Test Item Value Reference Range Interpretation Comments PROTIME (BEAKER) (test code = 759) 14.2 seconds 11.7-14.7 INR (BEAKER) (test code = 370) 1.1 <=5.9 RECOMMENDED COUMADIN/WARFARIN INR THERAPY RANGESSTANDARD DOSE: 2.0 - 3.0 Inclu jacinto: PROPHYLAXIS for venous thrombosis, systemic embolization; TREATMENT for amaury ous thrombosis and/or pulmonary embolus.HIGH RISK: Target INR is 2.5-3.5 for pat ients with mechanical heart valves.While on warfarin.PROTHROMBIN TIME/INR 2016-11-15 06:49:00* Test Item Value Reference Range Interpretation Comments PROTIME (BEAKER) (test code = 759) 13.9 seconds 11.7-14.7 INR (BEAKER) (test code = 370) 1.1 <=5.9 RECOMMENDED COUMADIN/WARFARIN INR THERAPY RANGESSTANDARD DOSE: 2.0 - 3.0 Inclu jacinto: PROPHYLAXIS for venous thrombosis, systemic embolization; TREATMENT for amaury ous thrombosis and/or pulmonary embolus.HIGH RISK: Target INR is 2.5-3.5 for pat ients with mechanical heart valves.CBC W/PLT COUNT & AUTO [id number] 07:57:00* Test Item Value Reference Range Interpretation Comments WHITE BLOOD CELL COUNT (BEAKER) (test code = 775) 8.2 K/ L 4.0- 10.0 RED BLOOD CELL COUNT (BEAKER) (test code = 761) 2.59 M/ L 4.20-5 .80 L HEMOGLOBIN (BEAKER) (test code = 410) 7.8 GM/DL 13.0-16.8 L HEMATOCRIT (BEAKER) (test code = 411) 22.7 % 40.0-50.0 L MEAN CORPUSCULAR VOLUME (BEAKER) (test code = 753) 87.5 fL 82. 0-98.0 MEAN CORPUSCULAR HEMOGLOBIN (BEAKER) (test code = 751) 29.9 pg 27.0-33.0 MEAN CORPUSCULAR HEMOGLOBIN CONC (BEAKER) (test code = 752) 34.1 GM/DL 32.0-36.0 RED CELL DISTRIBUTION WIDTH (BEAKER) (test code = 412) 15.0 % 10.3-14.2 H PLATELET COUNT (BEAKER) (test code = 756) 151 K/CU MM 150-430 MEAN PLATELET VOLUME (BEAKER) (test code = 754) 9.3 fL 6.5-10 .5 NUCLEATED RED BLOOD CELLS (BEAKER) (test code = 413) 0 /100 WBC 0 -0 NEUTROPHILS RELATIVE PERCENT (BEAKER) (test code = 429) 68 % LYMPHOCYTES RELATIVE PERCENT (BEAKER) (test code = 430) 20 % MONOCYTES RELATIVE PERCENT (BEAKER) (test code = 431) 9 % EOSINOPHILS RELATIVE PERCENT (BEAKER) (test code = 432) 2 % BASOPHILS RELATIVE PERCENT (BEAKER) (test code = 437) 0 % NEUTROPHILS ABSOLUTE COUNT (BEAKER) (test code = 670) 5.63 K/ L 1.80-8.00 LYMPHOCYTES ABSOLUTE COUNT (BEAKER) (test code = 414) 1.68 K/ L 1.48-4.50 MONOCYTES ABSOLUTE COUNT (BEAKER) (test code = 415) 0.75 K/ L 0. 00-1.30 EOSINOPHILS ABSOLUTE COUNT (BEAKER) (test code = 416) 0.14 K/ L 0.00-0.50 BASOPHILS ABSOLUTE COUNT (BEAKER) (test code = 417) 0.03 K/ L 0. 00-0.20 0.00BASI METABOLIC [id number] 07:08:00* Test Item Value Reference Range Interpretation Comments SODIUM (BEAKER) (test code = 381) 139 meq/L 136-145 POTASSIUM (BEAKER) (test code = 379) 3.6 meq/L 3.5-5.1 CHLORIDE (BEAKER) (test code = 382) 111 meq/L 98-107 H CO2 (BEAKER) (test code = 355) 24 meq/L 22-29 BLOOD UREA NITROGEN (BEAKER) (test code = 354) 17 mg/dL 7-21 CREATININE (BEAKER) (test code = 358) 0.66 mg/dL 0.57-1.25 GLUCOSE RANDOM (BEAKER) (test code = 652) 110 mg/dL 70-105 H CALCIUM (BEAKER) (test code = 697) 7.7 mg/dL 8.4-10.2 L EGFR (BEAKER) (test code = 1092) 119 mL/min/1.73 sq m ESTIMATED GFR IS NOT ACCURATE CREATININE CLEARANCE IN PREDICTING GLOMERULAR FILTRATION RATE. ESTIMATED GFR IS NOT APPLICABLE FOR DIALYSIS PATIENTS. CALCIUM, [id number] 15:38:00* Test Item Value Reference Range Interpretation Comments CALCIUM IONIZED (BEAKER) (test code = 698) 1.08 mmol/L 1.12-1.27 L PH, BLOOD (BEAKER) (test code = 1810) 7.33 BLOOD GAS, [id number] 15:37:00* Test Item Value Reference Range Interpretation Comments PH ARTERIAL (BEAKER) (test code = 383) 7.33 7.35-7.45 L PCO2 ARTERIAL (BEAKER) (test code = 384) 38 mmHg 35-45 PO2 ARTERIAL (BEAKER) (test code = 385) 261 mmHg 80-90 H O2 SATURATION ARTERIAL (BEAKER) (test code = 386) 99.6 % 96.0 -97.0 H HCO3 ARTERIAL (BEAKER) (test code = 388) 19 mmol/L 21-29 L BASE EXCESS ARTERIAL (BEAKER) (test code = 387) -6.1 mmol/L -2.0-3 .0 L PATIENT TEMPERATURE (BEAKER) (test code = 1818) 37.0 C GLUCOSE-STAT [id number] 15:37:00* Test Item Value Reference Range Interpretation Comments GLUCOSE RANDOM (BEAKER) (test code = 652) 142 mg/dL 70-110 H HGB/HCT (H&H) - STAT [id number] 15:37:00* Test Item Value Reference Range Interpretation Comments HEMOGLOBIN (BEAKER) (test code = 410) 11.0 g/dL 13.0-16.8 L HEMATOCRIT (BEAKER) (test code = 411) 32.0 % 40.0-50.0 L SODIUM NA-STAT [id number] 15:36:00* Test Item Value Reference Range Interpretation Comments SODIUM (BEAKER) (test code = 381) 137 meq/L 135-148 POTASSIUM-STAT [id number] 15:36:00* Test Item Value Reference Range Interpretation Comments POTASSIUM (BEAKER) (test code = 379) 4.3 meq/L 3.6-5.5 CALCIUM, [id number] 13:34:00* Test Item Value Reference Range Interpretation Comments CALCIUM IONIZED (BEAKER) (test code = 698) 0.98 mmol/L 1.12-1.27 L PH, BLOOD (BEAKER) (test code = 1810) 7.36 BLOOD GAS, [id number] 13:33:00* Test Item Value Reference Range Interpretation Comments PH ARTERIAL (BEAKER) (test code = 383) 7.36 7.35-7.45 PCO2 ARTERIAL (BEAKER) (test code = 384) 40 mmHg 35-45 PO2 ARTERIAL (BEAKER) (test code = 385) 474 mmHg 80-90 H O2 SATURATION ARTERIAL (BEAKER) (test code = 386) 99.9 % 96.0 -97.0 H HCO3 ARTERIAL (BEAKER) (test code = 388) 22 mmol/L 21-29 BASE EXCESS ARTERIAL (BEAKER) (test code = 387) -3.4 mmol/L -2.0-3 .0 L PATIENT TEMPERATURE (BEAKER) (test code = 1818) 37.0 C FIO2 (BEAKER) (test code = 1819) 100.0 % GLUCOSE-STAT [id number] 13:33:00* Test Item Value Reference Range Interpretation Comments GLUCOSE RANDOM (BEAKER) (test code = 652) 140 mg/dL 70-110 H HGB/HCT (H&H) - STAT [id number] 13:33:00* Test Item Value Reference Range Interpretation Comments HEMOGLOBIN (BEAKER) (test code = 410) 10.8 g/dL 13.0-16.8 L HEMATOCRIT (BEAKER) (test code = 411) 32.0 % 40.0-50.0 L SODIUM NA-STAT [id number] 13:32:00* Test Item Value Reference Range Interpretation Comments SODIUM (BEAKER) (test code = 381) 138 meq/L 135-148 POTASSIUM-STAT [id number] 13:32:00* Test Item Value Reference Range Interpretation Comments POTASSIUM (BEAKER) (test code = 379) 4.2 meq/L 3.6-5.5 CBC (HEMOGRAM ONLY)2016-11-11 06:01:00* Test Item Value Reference Range Interpretation Comments WHITE BLOOD CELL COUNT (BEAKER) (test code = 775) 8.6 K/ L 4.0- 10.0 RED BLOOD CELL COUNT (BEAKER) (test code = 761) 4.52 M/ L 4.20-5 .80 HEMOGLOBIN (BEAKER) (test code = 410) 12.7 GM/DL 13.0-16.8 L HEMATOCRIT (BEAKER) (test code = 411) 39.3 % 40.0-50.0 L MEAN CORPUSCULAR VOLUME (BEAKER) (test code = 753) 87.1 fL 82. 0-98.0 MEAN CORPUSCULAR HEMOGLOBIN (BEAKER) (test code = 751) 28.1 pg 27.0-33.0 MEAN CORPUSCULAR HEMOGLOBIN CONC (BEAKER) (test code = 752) 32.2 GM/DL 32.0-36.0 RED CELL DISTRIBUTION WIDTH (BEAKER) (test code = 412) 15.8 % 10.3-14.2 H PLATELET COUNT (BEAKER) (test code = 756) 174 K/CU MM 150-430 MEAN PLATELET VOLUME (BEAKER) (test code = 754) 9.7 fL 6.5-10 .5 NUCLEATED RED BLOOD CELLS (BEAKER) (test code = 413) 0 /100 WBC 0 -0 0.00BASIC METABOLIC [id number] 05:54:00* Test Item Value Reference Range Interpretation Comments SODIUM (BEAKER) (test code = 381) 139 meq/L 136-145 POTASSIUM (BEAKER) (test code = 379) 4.1 meq/L 3.5-5.1 CHLORIDE (BEAKER) (test code = 382) 109 meq/L 98-107 H CO2 (BEAKER) (test code = 355) 23 meq/L 22-29 BLOOD UREA NITROGEN (BEAKER) (test code = 354) 15 mg/dL 7-21 CREATININE (BEAKER) (test code = 358) 0.81 mg/dL 0.57-1.25 GLUCOSE RANDOM (BEAKER) (test code = 652) 110 mg/dL 70-105 H CALCIUM (BEAKER) (test code = 697) 8.3 mg/dL 8.4-10.2 L EGFR (BEAKER) (test code = 1092) 94 mL/min/1.73 sq m ESTIMATED GFR IS NOT ACCURATE CREATININE CLEARANCE IN PREDICTING GLOMERULAR FILTRATION RATE. ESTIMATED GFR IS NOT APPLICABLE FOR DIALYSIS PATIENTS. PT/[id number] 07:10:00* Test Item Value Reference Range Interpretation Comments PROTIME (BEAKER) (test code = 759) 13.5 seconds 11.7-14.7 INR (BEAKER) (test code = 370) 1.0 <=5.9 PARTIAL THROMBOPLASTIN TIME (BEAKER) (test code = 760) 33.1 seconds 22.5-36.0 RECOMMENDED COUMADIN/WARFARIN INR THERAPY RANGESSTANDARD DOSE: 2.0 - 3.0 Inclu jacinto: PROPHYLAXIS for venous thrombosis, systemic embolization; TREATMENT for amaury ous thrombosis and/or pulmonary embolus.HIGH RISK: Target INR is 2.5-3.5 for pat ients with mechanical heart valves.BODY FLUID CULTURE + GRAM [id number] 09:13:00* Test Item Value Reference Range Interpretation Comments CULTURE (BEAKER) (test code = 1095) No growth GRAM STAIN RESULT (BEAKER) (test code = 1123) 1+ WBCs GRAM STAIN RESULT (BEAKER) (test code = 21858) No organisms seen PROTHROMBIN TIME/[id number] 05:10:00* Test Item Value Reference Range Interpretation Comments PROTIME (BEAKER) (test code = 759) 27.2 seconds 11.7-14.7 H INR (BEAKER) (test code = 370) 2.5 <=5.9 RECOMMENDED COUMADIN/WARFARIN INR THERAPY RANGESSTANDARD DOSE: 2.0 - 3.0 Inclu jacinto: PROPHYLAXIS for venous thrombosis, systemic embolization; TREATMENT for amaury ous thrombosis and/or pulmonary embolus.HIGH RISK: Target INR is 2.5-3.5 for pat ients with mechanical heart valves.While on warfarin.PROTHROMBIN TIME/INR 2016-08-03 05:02:00* Test Item Value Reference Range Interpretation Comments PROTIME (BEAKER) (test code = 759) 17.7 seconds 11.7-14.7 H INR (BEAKER) (test code = 370) 1.5 <=5.9 RECOMMENDED COUMADIN/WARFARIN INR THERAPY RANGESSTANDARD DOSE: 2.0 - 3.0 Inclu jacinto: PROPHYLAXIS for venous thrombosis, systemic embolization; TREATMENT for amaury ous thrombosis and/or pulmonary embolus.HIGH RISK: Target INR is 2.5-3.5 for pat ients with mechanical heart valves.While on warfarin.PROTHROMBIN TIME/INR 2016-08-02 14:12:00* Test Item Value Reference Range Interpretation Comments PROTIME (BEAKER) (test code = 759) 16.0 seconds 11.7-14.7 H INR (BEAKER) (test code = 370) 1.3 <=5.9 RECOMMENDED COUMADIN/WARFARIN INR THERAPY RANGESSTANDARD DOSE: 2.0 - 3.0 Inclu jacinto: PROPHYLAXIS for venous thrombosis, systemic embolization; TREATMENT for amaury ous thrombosis and/or pulmonary embolus.HIGH RISK: Target INR is 2.5-3.5 for pat ients with mechanical heart valves.BODY FLUID CELL COUNT WITH DIFFERENTIAL 2016-08-02 10:25:00* Test Item Value Reference Range Interpretation Comments APPEARANCE FLUID (BEAKER) (test code = 510) Moderately Bloody Clear A COLOR FLUID (BEAKER) (test code = 511) Red Colorless, Stra w A RBC FLUID (BEAKER) (test code = 298) 1850537 /cu mm <=1 H ADJUSTED WBC FLUID (BEAKER) (test code = 1691) 9590 /cu mm <=5 H LINING CELLS (BEAKER) (test code = 1590) 0 /cu mm <=1 NEUTROPHILS FLUID (BEAKER) (test code = 1656) 83 % LYMPHS FLUID (BEAKER) (test code = 488) 8 % MONO/MACROPHAGE FLUID (BEAKER) (test code = 489) 6 % EOSINOPHILS FLUID (BEAKER) (test code = 491) 1 % BASO FLUID (BEAKER) (test code = 492) 2 % CONTAINER BODY FLUID (BEAKER) (test code = 2873) EDTA Tube BODY FLUID CULTURE + GRAM [id number] 09:47:00* Test Item Value Reference Range Interpretation Comments CULTURE (BEAKER) (test code = 1095) No growth GRAM STAIN RESULT (BEAKER) (test code = 1123) <1+ WBCs GRAM STAIN RESULT (BEAKER) (test code = 30240) No organisms seen BASIC METABOLIC [id number] 06:10:00* Test Item Value Reference Range Interpretation Comments SODIUM (BEAKER) (test code = 381) 132 meq/L 136-145 L POTASSIUM (BEAKER) (test code = 379) 4.0 meq/L 3.5-5.1 CHLORIDE (BEAKER) (test code = 382) 97 meq/L 98-107 L CO2 (BEAKER) (test code = 355) 27 meq/L 22-29 BLOOD UREA NITROGEN (BEAKER) (test code = 354) 13 mg/dL 7-21 CREATININE (BEAKER) (test code = 358) 0.60 mg/dL 0.57-1.25 GLUCOSE RANDOM (BEAKER) (test code = 652) 90 mg/dL 70-105 CALCIUM (BEAKER) (test code = 697) 8.4 mg/dL 8.4-10.2 EGFR (BEAKER) (test code = 1092) 133 mL/min/1.73 sq m ESTIMATED GFR IS NOT ACCURATE CREATININE CLEARANCE IN PREDICTING GLOMERULAR FILTRATION RATE. ESTIMATED GFR IS NOT APPLICABLE FOR DIALYSIS PATIENTS. CBC W/PLT COUNT & AUTO [id number] 05:12:00* Test Item Value Reference Range Interpretation Comments WHITE BLOOD CELL COUNT (BEAKER) (test code = 775) 7.9 K/ L 4.0- 10.0 RED BLOOD CELL COUNT (BEAKER) (test code = 761) 2.79 M/ L 4.20-5 .80 L HEMOGLOBIN (BEAKER) (test code = 410) 8.8 GM/DL 13.0-16.8 L HEMATOCRIT (BEAKER) (test code = 411) 25.5 % 40.0-50.0 L MEAN CORPUSCULAR VOLUME (BEAKER) (test code = 753) 91.5 fL 82. 0-98.0 MEAN CORPUSCULAR HEMOGLOBIN (BEAKER) (test code = 751) 31.6 pg 27.0-33.0 MEAN CORPUSCULAR HEMOGLOBIN CONC (BEAKER) (test code = 752) 34.5 GM/DL 32.0-36.0 RED CELL DISTRIBUTION WIDTH (BEAKER) (test code = 412) 13.0 % 10.3-14.2 PLATELET COUNT (BEAKER) (test code = 756) 382 K/CU MM 150-430 MEAN PLATELET VOLUME (BEAKER) (test code = 754) 8.6 fL 6.5-10 .5 NUCLEATED RED BLOOD CELLS (BEAKER) (test code = 413) 0 /100 WBC 0 -0 NEUTROPHILS RELATIVE PERCENT (BEAKER) (test code = 429) 52 % LYMPHOCYTES RELATIVE PERCENT (BEAKER) (test code = 430) 28 % MONOCYTES RELATIVE PERCENT (BEAKER) (test code = 431) 14 % EOSINOPHILS RELATIVE PERCENT (BEAKER) (test code = 432) 4 % BASOPHILS RELATIVE PERCENT (BEAKER) (test code = 437) 1 % NEUTROPHILS ABSOLUTE COUNT (BEAKER) (test code = 670) 4.16 K/ L 1.80-8.00 LYMPHOCYTES ABSOLUTE COUNT (BEAKER) (test code = 414) 2.25 K/ L 1.48-4.50 MONOCYTES ABSOLUTE COUNT (BEAKER) (test code = 415) 1.10 K/ L 0. 00-1.30 EOSINOPHILS ABSOLUTE COUNT (BEAKER) (test code = 416) 0.35 K/ L 0.00-0.50 BASOPHILS ABSOLUTE COUNT (BEAKER) (test code = 417) 0.08 K/ L 0. 00-0.20 0.00BLOOD [id number] 10:00:00* Test Item Value Reference Range Interpretation Comments CULTURE (BEAKER) (test code = 1095) No growth in 5 days BLOOD [id number] 10:00:00* Test Item Value Reference Range Interpretation Comments CULTURE (BEAKER) (test code = 1095) No growth in 5 days BASIC METABOLIC [id number] 07:43:00* Test Item Value Reference Range Interpretation Comments SODIUM (BEAKER) (test code = 381) 132 meq/L 136-145 L POTASSIUM (BEAKER) (test code = 379) 3.8 meq/L 3.5-5.1 CHLORIDE (BEAKER) (test code = 382) 97 meq/L 98-107 L CO2 (BEAKER) (test code = 355) 27 meq/L 22-29 BLOOD UREA NITROGEN (BEAKER) (test code = 354) 10 mg/dL 7-21 CREATININE (BEAKER) (test code = 358) 0.58 mg/dL 0.57-1.25 GLUCOSE RANDOM (BEAKER) (test code = 652) 82 mg/dL 70-105 CALCIUM (BEAKER) (test code = 697) 8.6 mg/dL 8.4-10.2 EGFR (BEAKER) (test code = 1092) 139 mL/min/1.73 sq m ESTIMATED GFR IS NOT ACCURATE CREATININE CLEARANCE IN PREDICTING GLOMERULAR FILTRATION RATE. ESTIMATED GFR IS NOT APPLICABLE FOR DIALYSIS PATIENTS. CBC W/PLT COUNT & AUTO [id number] 07:41:00* Test Item Value Reference Range Interpretation Comments WHITE BLOOD CELL COUNT (BEAKER) (test code = 775) 7.3 K/ L 4.0- 10.0 RED BLOOD CELL COUNT (BEAKER) (test code = 761) 2.92 M/ L 4.20-5 .80 L HEMOGLOBIN (BEAKER) (test code = 410) 9.3 GM/DL 13.0-16.8 L HEMATOCRIT (BEAKER) (test code = 411) 27.2 % 40.0-50.0 L MEAN CORPUSCULAR VOLUME (BEAKER) (test code = 753) 93.2 fL 82. 0-98.0 MEAN CORPUSCULAR HEMOGLOBIN (BEAKER) (test code = 751) 31.8 pg 27.0-33.0 MEAN CORPUSCULAR HEMOGLOBIN CONC (BEAKER) (test code = 752) 34.1 GM/DL 32.0-36.0 RED CELL DISTRIBUTION WIDTH (BEAKER) (test code = 412) 12.3 % 10.3-14.2 PLATELET COUNT (BEAKER) (test code = 756) 407 K/CU MM 150-430 MEAN PLATELET VOLUME (BEAKER) (test code = 754) 9.0 fL 6.5-10 .5 NUCLEATED RED BLOOD CELLS (BEAKER) (test code = 413) 0 /100 WBC 0 -0 NEUTROPHILS RELATIVE PERCENT (BEAKER) (test code = 429) 55 % LYMPHOCYTES RELATIVE PERCENT (BEAKER) (test code = 430) 25 % MONOCYTES RELATIVE PERCENT (BEAKER) (test code = 431) 15 % EOSINOPHILS RELATIVE PERCENT (BEAKER) (test code = 432) 4 % BASOPHILS RELATIVE PERCENT (BEAKER) (test code = 437) 1 % NEUTROPHILS ABSOLUTE COUNT (BEAKER) (test code = 670) 4.01 K/ L 1.80-8.00 LYMPHOCYTES ABSOLUTE COUNT (BEAKER) (test code = 414) 1.85 K/ L 1.48-4.50 MONOCYTES ABSOLUTE COUNT (BEAKER) (test code = 415) 1.09 K/ L 0. 00-1.30 EOSINOPHILS ABSOLUTE COUNT (BEAKER) (test code = 416) 0.31 K/ L 0.00-0.50 BASOPHILS ABSOLUTE COUNT (BEAKER) (test code = 417) 0.09 K/ L 0. 00-0.20 0.00CBC W/PLT COUNT & AUTO [id number] 05:40:00* Test Item Value Reference Range Interpretation Comments WHITE BLOOD CELL COUNT (BEAKER) (test code = 775) 9.1 K/ L 4.0- 10.0 RED BLOOD CELL COUNT (BEAKER) (test code = 761) 3.14 M/ L 4.20-5 .80 L HEMOGLOBIN (BEAKER) (test code = 410) 9.9 GM/DL 13.0-16.8 L HEMATOCRIT (BEAKER) (test code = 411) 28.9 % 40.0-50.0 L MEAN CORPUSCULAR VOLUME (BEAKER) (test code = 753) 91.9 fL 82. 0-98.0 MEAN CORPUSCULAR HEMOGLOBIN (BEAKER) (test code = 751) 31.4 pg 27.0-33.0 MEAN CORPUSCULAR HEMOGLOBIN CONC (BEAKER) (test code = 752) 34.1 GM/DL 32.0-36.0 RED CELL DISTRIBUTION WIDTH (BEAKER) (test code = 412) 13.4 % 10.3-14.2 PLATELET COUNT (BEAKER) (test code = 756) 440 K/CU MM 150-430 H MEAN PLATELET VOLUME (BEAKER) (test code = 754) 8.7 fL 6.5-10 .5 NUCLEATED RED BLOOD CELLS (BEAKER) (test code = 413) 0 /100 WBC 0 -0 NEUTROPHILS RELATIVE PERCENT (BEAKER) (test code = 429) 68 % LYMPHOCYTES RELATIVE PERCENT (BEAKER) (test code = 430) 18 % MONOCYTES RELATIVE PERCENT (BEAKER) (test code = 431) 13 % EOSINOPHILS RELATIVE PERCENT (BEAKER) (test code = 432) 1 % BASOPHILS RELATIVE PERCENT (BEAKER) (test code = 437) 1 % NEUTROPHILS ABSOLUTE COUNT (BEAKER) (test code = 670) 6.22 K/ L 1.80-8.00 LYMPHOCYTES ABSOLUTE COUNT (BEAKER) (test code = 414) 1.59 K/ L 1.48-4.50 MONOCYTES ABSOLUTE COUNT (BEAKER) (test code = 415) 1.15 K/ L 0. 00-1.30 EOSINOPHILS ABSOLUTE COUNT (BEAKER) (test code = 416) 0.09 K/ L 0.00-0.50 BASOPHILS ABSOLUTE COUNT (BEAKER) (test code = 417) 0.05 K/ L 0. 00-0.20 0.00BASIC METABOLIC [id number] 05:15:00* Test Item Value Reference Range Interpretation Comments SODIUM (BEAKER) (test code = 381) 132 meq/L 136-145 L POTASSIUM (BEAKER) (test code = 379) 3.8 meq/L 3.5-5.1 CHLORIDE (BEAKER) (test code = 382) 99 meq/L 98-107 CO2 (BEAKER) (test code = 355) 24 meq/L 22-29 BLOOD UREA NITROGEN (BEAKER) (test code = 354) 9 mg/dL 7-21 CREATININE (BEAKER) (test code = 358) 0.60 mg/dL 0.57-1.25 GLUCOSE RANDOM (BEAKER) (test code = 652) 94 mg/dL 70-105 CALCIUM (BEAKER) (test code = 697) 8.4 mg/dL 8.4-10.2 EGFR (BEAKER) (test code = 1092) 133 mL/min/1.73 sq m ESTIMATED GFR IS NOT ACCURATE CREATININE CLEARANCE IN PREDICTING GLOMERULAR FILTRATION RATE. ESTIMATED GFR IS NOT APPLICABLE FOR DIALYSIS PATIENTS. SEDIMENTATION [id number] 14:35:00* Test Item Value Reference Range Interpretation Comments SEDIMENTATION RATE, ERYTHROCYTE (BEAKER) (test code = 766) 86 mm/HR 0-40 H C-REACTIVE [id number] 12:57:00* Test Item Value Reference Range Interpretation Comments C-REACTIVE PROTEIN (DELONTE) (test code = 676) 6.42 mg/dL 0.00-0.5 0 H URINE AND [id number] [facility] [id number] 15:43:00Clear (07/15/16 9:43 AM)[facility] [id number] 15:43:00 Yellow *NA*(07/15/16 9:43 AM)[facility] [id number] 15:43:005.0 [facility] [id number] 15:43:00Negative *NA*(07/15/16 9:43 AM) [facility] BMCAH7730-45-18 15:43:00Negative (07/15/16 9:43 AM) [facility] YKGFY8429-35-09 15:43:006[facility] KHPGQ3153-24-85 15:43:00Negative (07/15/16 9:43 AM)[facility] STOOL 2016-07-15 15:43:003[facility] [id number] 15:43:00Negative (07/15/16 9:43 AM)[facility] TJNDB7309-89-03 15:43:001[facility]annCHE[facility] VMWPI6931-21-74 07:43:001.8[facility] JrqgolqFIGLAJOSUEDQ6309-92-83 07:43:0016.9[facility] IesxyqfUTZSGYZQCUJY7408-64-36 07:43:0027[facility] [place] SHOUGFUOEOSH6739-06-74 07:43:004.1[facility] PboxpwpTEKYHGOXOPND9429-05-31 07:43:000.9[facility] UspmlqaOGIXDRFEUQJN4618-14-95 07:43:003.9[facility] LOQVHPAKAMGW1172-24-15 07:43:81934Ahsjqzjr AntdtgwVQSNHOVORFYU0209-76-55 07:43:008.1[facility] OhzdvaxTCBMOCKMCCHR6122-23-56 07:43:0022[facility] EXJQOEZDVIPJ1476-76-44 07:43:89665Haywmbxg GzgudhfCERUYUHCJTAU6896-74-42 07:43:80973Giithhup AkcjswnQKFHTNTCFTXI0062-72-54 07:43:001.00[facility] YNKTYZRPPNZU8351-88-08 07:43:0027[facility] PczwtutLZLXVMBPIJDV9690-97-08 07:43:00 3.6[facility] SofgpoyGSFLWWVBOIXE6702-99-60 07:43:007.7[facility] WANQRTBOQXJM0679-44-55 07:43:000.5[facility] IyhakiwXFWLPCNFNLNZ0086-10-60 07:43:0095[facility] NwucuezBMCFXQVFECBJ7988-47-74 07:43:0022[facility] [place] DVYKMLPWOXTO9170-31-57 07:43:0031[facility] FwykhziFTYFMZRECAWB5441-99-74 07:43:00 76[facility] LslersmDOGUTXOKKJ1847-85-03 07:43:0021[facility] 2016-07-15 07:43:00* Test Item Value Reference Range Interpretation Comments MCH (test code = MCH) 30.1 pg 27.0-31.0 [facility] MqgjlnzEZPIXJXBKY5750-55-63 07:43:0087.2[facility] 2016-07-15 07:43:0034.5[facility] ZxbfpahBYVJBIGTVH9901-94-17 07:43:0014.1[facility] ImnnbuyJSAUEQAAGW0090-14-45 07:43:0038.3[facility] QmikwflMHZKHZEFSZ7754-88-75 07:43:0010.8[facility] IqegwfbNEURQSNOUZ3037-37-43 07:43:86794Qbjubvdd Sriram BWVYEXHATL1090-17-27 07:43:0017.0[facility] EnbgrodBUHJDOICZZ8946-08-28 07:43:00 13.2[facility] MfoeasuQJNVDEONKM7766-34-60 07:43:004.39[facility] 2016-07-15 07:43:001.07[facility] QgshtqbPVUBOKNKBQ5125-45-93 07:43:00* Test Item Value Reference Range Interpretation Comments PT (test code = PT) 14.1 s 12.0-14.7 [facility] WmjarlzNDYPPXSADV5539-18-33 07:43:00* Test Item Value Reference Range Interpretation Comments PTT (test code = PTT) 28.4 s 22.9-35.8 [facility] WpbfogxNFQMIBRRSW9008-90-23 07:43:000.1[facility] 2016-07-15 07:43:0014.0[facility] RohdikuYTPIYRDSYZ1790-41-12 07:43:000.6[facility] KkgonkwPFIWJVMXCU5688-01-89 07:43:001.5[facility] TbaxjjzWKLVCDTAPA7782-11-97 07:43:001.4[facility] ZmptrwuIVAXMADCPR1571-10-76 07:43:008.9[facility] OHAMVMFGSN8309-55-87 07:43:008.0[facility] KuxogntQKTXNYWVXM3068-24-60 07:43:00 82.5[facility] QljudwfBDRQCTQLLN8392-54-19 07:43:0054.6[facility] [place]
[2019-11-21 21:58] LABS: BASOPHILS # (AUTO) 0.1 (0.0-0.1); BASOPHILS % 0.9 % (0.0-1.0); EOSINOPHILS # (AUTO) 0.9 (0.0-0.4); HEMATOCRIT 39.2 % (38.2-49.6); HEMOGLOBIN 13.1 g/dL (14.0-18.0); LYMPHOCYTES % 33.3 % (18.0-39.1); MEAN CORPUSCULAR HEMOGLOBIN 29.7 pg (28-32); MEAN CORPUSCULAR HGB CONC 33.4 g/dL (31-35); MEAN CORPUSCULAR VOLUME 88.9 fL (81-99); MONOCYTES # (AUTO) 0.8 (0.2-0.8); MONOCYTES % 9.1 % (4.4-11.3); NEUTROPHILS # (AUTO) 4.1 (2.1-6.9); NEUTROPHILS % 46.5 % (38.7-80.0); PLATELET COUNT 191 x10e3/uL (140-360); RED BLOOD COUNT 4.41 x10e6/uL (4.3-5.7)
--- NOTE | 2019-11-21 22:00 | Emergency Department Note ---
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 Historian: Patient Arrival Mode: Car Onset (how long ago): day(s) (2) Location: CHEST Quality: SUBSTERNAL CHEST PAIN RADIATING TO LEFT CHEST, Radiation: Reports other (LEFT CHEST) Severity: moderate Onset quality: sudden Duration (how long): day(s) (2) Timing of current episode: intermittent Progression: waxing and waning Chronicity: recurrent Context: Denies recent illness, Denies recent surgery Relieving factors: none Exacerbating factors: none Associated symptoms: Reports denies other symptoms Treatments prior to arrival: other (CLONIDINE) Past Medical/Family History Physician Review I have reviewed the patient's past medical and family history. Any updates have been documented here. 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 Past Surgical History: Knee Replacement, Back Surgery Other Surgery: Neck surgery spinal cord surgery LT KNEE REPLACEMENT Social History Smoking Cessation: Never Smoker Alcohol Use: Occasional Any Illegal Drug Use: No Family History Family history of heart diseas: No Other family history HTN, Other Last Tetanus: UNK Review of Systems Review of Systems Constitutional: Reports no symptoms EENTM: Reports no symptoms Cardiovascular: Reports as per HPI Respiratory: Reports no symptoms Gastrointestinal: Reports no symptoms Genitourinary: Reports no symptoms Musculoskeletal: Reports no symptoms Integumentary: Reports no symptoms Neurological: Reports no symptoms Psychological: Reports no symptoms Endocrine: Reports no symptoms Hematological/Lymphatic: Reports no symptoms Physical Exam Related Data Allergies: Coded Allergies: amlodipine (Verified Allergy, Unknown, 06/23/18) atorvastatin (Verified Allergy, Unknown, 06/23/18) warfarin (Verified Adverse Reaction, Severe, 03/09/18) Triage Vital Signs Vital Signs Date Time Temp Pulse Resp B/P (MAP) Pulse Ox O2 Delivery O2 Flow Rate FiO2 11/21/19 21:18 99.5 66 20 214/101 97 Vital signs reviewed: Yes Physical Exam CONSTITUTIONAL Constitutional: Reports well-developed, Reports well-nourished HENT HENT: Reports normocephalic, Reports atraumatic, Reports oropharynx clear/moist, Reports nose normal HENT L/R: Reports left ext ear normal, Reports right ext ear normal EYES Eyes: Reports PERRL, Reports conjunctivae normal NECK Neck: Reports ROM normal PULMONARY Pulmonary: Reports effort normal, Reports breath sounds normal CARDIOVASCULAR Cardiovascular: Reports regular rhythm, Reports heart sounds normal, Reports capillary refill normal, Reports normal rate GASTROINTESTINAL Abdominal: Reports soft, Reports nontender, Reports bowel sounds normal GENITOURINARY Genitourinary: Reports exam deferred SKIN Skin: Reports warm, Reports dry MUSCULOSKELETAL Musculoskeletal: Reports ROM normal NEUROLOGICAL Neurological: Reports alert, Reports oriented x 3, Reports no gross motor or sensory deficits PSYCHOLOGICAL Psychological: Reports mood/affect normal, Reports judgement normal Results Laboratory Laboratory Laboratory Tests Test 11/21/19 21:33 White Blood Count 8.91 x10e3/uL (4.8-10.8) Red Blood Count 4.41 x10e6/uL (4.3-5.7) Hemoglobin 13.1 g/dL (14.0-18.0) Hematocrit 39.2 % (38.2-49.6) Mean Corpuscular Volume 88.9 fL (81-99) Mean Corpuscular Hemoglobin 29.7 pg (28-32) Mean Corpuscular Hemoglobin Concent 33.4 g/dL (31-35) Red Cell Distribution Width 14.0 % (11.7-14.4) Platelet Count 191 x10e3/uL (140-360) Neutrophils (%) (Auto) 46.5 % (38.7-80.0) Lymphocytes (%) (Auto) 33.3 % (18.0-39.1) Monocytes (%) (Auto) 9.1 % (4.4-11.3) Eosinophils (%) (Auto) 10.0 % (0.0-6.0) Basophils (%) (Auto) 0.9 % (0.0-1.0) Neutrophils # (Auto) 4.1 (2.1-6.9) Lymphocytes # (Auto) 3.0 (1.0-3.2) Monocytes # (Auto) 0.8 (0.2-0.8) Eosinophils # (Auto) 0.9 (0.0-0.4) Basophils # (Auto) 0.1 (0.0-0.1) Absolute Immature Granulocyte (auto 0.02 x10e3/uL (0-0.1) Prothrombin Time 21.6 seconds (11.9-14.5) Prothromb Time International Ratio 1.74 Activated Partial Thromboplast Time 37.4 seconds (23.8-35.5) Sodium Level 142 mmol/L (136-145) Potassium Level 4.1 mmol/L (3.5-5.1) Chloride Level 107 mmol/L (98-107) Carbon Dioxide Level 20 mmol/L (22-29) Anion Gap 19.1 mmol/L (8-16) Blood Urea Nitrogen 32 mg/dL (7-26) Creatinine 1.58 mg/dL (0.72-1.25) Estimat Glomerular Filtration Rate 43 ML/MIN (60-) BUN/Creatinine Ratio 20 (6-25) Glucose Level 139 mg/dL (74-118) Calcium Level 9.0 mg/dL (8.4-10.2) Total Bilirubin 0.3 mg/dL (0.2-1.2) Aspartate Amino Transf (AST/SGOT) 26 IU/L (5-34) Alanine Aminotransferase (ALT/SGPT) 16 IU/L (0-55) Alkaline Phosphatase 95 IU/L (40-150) Creatine Kinase 399 IU/L (30-200) Creatine Kinase MB 6.50 ng/mL (0-5.0) Troponin I 0.025 ng/mL (0-0.300) Total Protein 7.9 g/dL (6.5-8.1) Albumin 3.8 g/dL (3.5-5.0) Globulin 4.1 g/dL (2.3-3.5) Albumin/Globulin Ratio 0.9 (0.8-2.0) Laboratory Tests Test 11/21/19 21:33 Lab results reviewed: Yes Laboratory comments CK AND CKMB ELEVATED Imaging Imaging results reviewed: Yes Impressions EXAMINATION: CHEST SINGLE (PORTABLE) INDICATION: ^CHEST PAIN ^[id number] ^2205 ^Y COMPARISON: 05/19/2019 FINDINGS: AP view TUBES and LINES: None. LUNGS: Lungs are well inflated. There is no evidence of pneumonia or pulmonary edema. PLEURA: No pleural effusion or pneumothorax. HEART AND MEDIASTINUM: The cardiomediastinal silhouette is enlarged. BONES AND SOFT TISSUES: No acute osseous lesion. Soft tissues are unremarkable. UPPER ABDOMEN: No free air under the diaphragm. IMPRESSION: No acute thoracic abnormality. No change from prior exam. Signed by: Dr. Guy Ramsey MD on 11/21/2019 11:03 PM Procedures 12 Lead ECG Interpretation ECG Interpretation : ECG: ECG 1 Educational Aid: Interpreted by ED physician Date: Nov 21, 2019 Prior ECG tracings: reviewed Rhythm: sinus bradycardia Rate: bradycardia BPM: 62 ST segments normal: Yes T waves normal: Yes Other findings: no other findings Q waves: V1 Clinical Impression: abnormal ECG Additional Comments PT WITH SINUS BRADYCARDIA WITH OCCASIONAL PAC'S Assessment & Plan Medical Decision Making MDM Patient presents with elevated blood pressure intermittent chest pain substernal radiating to the left 2 days states the episodes last 5-10 minutes with her no chest pain at this time. CBC, CMP, cardiac enzymes, EKG, chest x-ray ordered to eval for myocardial infarction, pneumonia, pulmonary edema, electrolyte abnormality. PT WITH ELEVATED CK AND CKMB, I SPOKE WITH DR MATA, WILL PLACE PT IN OBS FOR CARDIAC RULE OUT Assessment & Plan Final Impression: (1) Chest pain (2) HTN (hypertension) Depart Disposition: ADMITTED Last Vital Signs Date Time Temp Pulse Resp B/P (MAP) Pulse Ox O2 Delivery O2 Flow Rate FiO2 11/21/19 21:52 56 13 174/72 98 11/21/19 21:18 99.5 Home Meds Active Scripts Comp.stocking,Knee,Regular,Lrg (TRUFORM COMPRESSION STOCKING) 1 Each Each, UNIT TOP DAILY for dvt, #2 Prov:DOMONIQUE MARIE NP 03/11/18 Zolpidem Tartrate (AMBIEN) 5 Mg Tablet, 5 MG PO HS for 7 Days Prov:DOMONIQUE MARIE NP 03/11/18 Rivaroxaban (XARELTO) 15 Mg Tablet, 15 MG PO BIDWM for 20 Days 15 mg by mouth twice daily for a total of 21 days, then obtain Rx from PCP for 20mg by mouth once daily Prov:DOMONIQUE MARIE NP 03/11/18 [Lidocaine Patch] 1 EA PATCH No Conflict Check, 1 EA TP DAILY for 7 Days Prov:DOMONIQUE MARIE Letty [employer] 03/11/18 [Hydrocodone/Apap 5MG-325MG] 1 EA TAB No Conflict Check, 1 EA PO Q4H PRN for MODERATE PAIN (4-6) for 7 Days Prov:TOSIN MARIEMANOHAR Saenz NP 03/11/18 Cephalexin Monohydrate (KEFLEX) 500 Mg Capsule, 500 MG PO Q6HR for 7 Days Prov:FRANKDOMONIQUE VALENCIA NP 03/11/18 Alprazolam (ALPRAZOLAM) 0.25 Mg Tablet, 0.25 MG PO Q8H for 10 Days Prov:FRANKDOMONIQUE Saenz NP 03/11/18 Reported Medications Docusate Sodium (DOCUSATE SODIUM) 100 Mg Capsule, 100 MG PO, CAP 03/09/18 Multivitamin (MULTI-VITAMIN DAILY) 1 Each Tablet 03/09/18 Cholecalciferol (Vitamin D3) (VITAMIN D) 1,000 Unit Tablet, 5000 UNIT PO DAILY, #30 TAB 03/09/18 Atenolol (ATENOLOL) 50 Mg Tablet, 25 MG DAILY 03/09/18 Lisinopril (LISINOPRIL) 10 Mg Tablet, 10 MG PO DAILY, #30 TAB 03/09/18 Gabapentin (GABAPENTIN) 300 Mg Capsule, 300 MG PO TID, #60 CAP 03/09/18 Tramadol Hcl (ULTRAM) 50 Mg Tablet, 50 MG PO Q6H, TAB 03/09/18 Fluticasone Propionate (FLUTICASONE PROPIONATE) 16 Gm [place].susp, 50 MCG DAILY 03/09/18 Baclofen (BACLOFEN) 10 Mg Tablet, 10 MG PO TID, #90 TAB 03/09/18 Medications in the ED Hydralazine HCl 10 mg NOW STAT IV ; Start 11/21/19 at 21:20; Stop 11/21/19 at 21:21 SAM CERDA MD Nov 21, 2019 22:00
[2019-11-21 22:05] LABS: INR 1.74; PROTHROMBIN TIME 21.6 seconds (11.9-14.5)
[2019-11-21 22:06] LABS: PARTIAL THROMBOPLASTIN TIME 37.4 seconds (23.8-35.5)
[2019-11-21 22:15] LABS: ALBUMIN 3.8 g/dL (3.5-5.0); ALBUMIN/GLOBULIN RATIO 0.9 (0.8-2.0); ANION GAP 19.1 mmol/L (8-16); CREATININE, SERUM 1.58 mg/dL (0.72-1.25); POTASSIUM 4.1 mmol/L (3.5-5.1)
[2019-11-21 22:21] LABS: CREATINE KINASE MB 6.5 ng/mL (0-5.0)
--- OUTSIDE RECORDS SUMMARY | 2019-11-21 22:57 | XMS REPORT | Continuity of Care Document ---
Author Author SOPHIE Whitfield Makoondi Address Unknown Phone Unavailable Care Team Providers Care Athlete Manager Name Role Phone Nefsis Information Exchange Unavailable Un available Problems Problem Status Onset Date Classification Date Reported Comments Source LOWER BACK PAIN Active 07/14/2016 [facility] CELLULITIS, EFFUSION OF KNEE JOINT LEFT, Active 07/14/2016 [facility] POST DC FU- NO ORDER Active 08/30/2013 [facility] Cervical myelopathy (disorder) Active Problem 11/2016 [facility] Dysphagia (disorder) Active Problem 07/18/2016 [facility] Hemiparesis (disorder) Active Problem 07/18/2016 [facility] Hypertensive disorder, systemic arterial (disorder) Resolved Problem 07/18/2016 [facility] Osteoarthritis (disorder) Reso lved Problem 11/2016 [facility] Quadriparesis (disorder) Active Problem 07/18/2016 [facility] CELLULITIS, UNSPECIFIED Active [facility] EFFUSION, LEFT KNEE Active [facility] SIRS OF NON-INFECTIOUS ORIGIN W/O ACUTE Active [facility] Medications Medication Details Route Status Patient Instructions Ordering Provider Order Date Source RN-Do not give Vanc till trough drawn 07/16/16@ 15:30 RN-Do not give Vanc till trough drawn 07/16/16@ 15:30, ATTN:RN - REMINDER, Drug form: MISC, Route: MISC, ONCE, 07/16/16 16:30:00 JUNIOR ENGINEER, Stop date: 07/16/16 16:30:00 JUNIOR ENGINEER No Longer Active 07/16/2016 [facility] RN-Do not give Vanc till trough drawn 07/16/16@ 16:30 RN-Do not give Vanc till trough drawn 07/16/16@ 16:30, ATTN:RN - REMINDER, Drug form: MISC, Route: MISC, ONCE, 07/16/16 16:00:00 JUNIOR ENGINEER, Stop date: 07/16/16 16:00:00 JUNIOR ENGINEER No Longer Active 07/16/2016 [facility] vancomycin + sodium chloride 0.9% 500 mL INJ (for IV set) 500 mL 2001 mg: infuse over 2.5 hours ME DICATION WASTE Product Size: 1000 mg Product Wasted: ___ mg Inactive 07/15/2016 [facility] ondansetron 2 mg/mL injectable solution 4 mg = 2 mL, IVP, Q6H, PRN Nausea & Vomiting, 0 Refill(s) Active 07/15/2016 [facility] Morphine 2 mg = 1 mL, IVP, Q4H , PRN Pain Score 7-10, 0 Refill(s) Active 07/15/2016 [facility] acetaminophen 325 mg oral tablet 100.4 F, 0 Refill(s) Active 07/15/2016 [facility] heparin Notes: porcine heparin Inactive 07/15/2016 [facility] tramadol hydrochloride 50 MG Oral Tablet 50 mg = 1 tab, PO, BID, PRN Pain Score 6-10, 0 Refill(s) Active 07/15/2016 [facility] Senna-gen 8.6 mg oral tablet 1 7.2 mg = 2 tab, PO, Bedtime, PRN for constipation, # 100 tab, 0 Refill(s) Active 07/15/2016 [facility] lisinopril 20 mg oral tablet 2 0 mg = 1 tab, PO, Daily, # 30 tab, 0 Refill(s) Active 07/15/2016 [facility] tizanidine 2 mg oral capsule 2 mg = 1 cap, PO, Bedtime, PRN for muscle spasm, take 1 to 2 tabs as needed, # 30 cap, 0 Refill(s) Active 07/15/2016 [facility] Vitamin D3 5000 intl units oral capsule 5,000 IntlUnit = 1 cap, PO, Daily, # 30 cap, 1 Refill(s) Active 07/15/2016 [facility] tizanidine 2 mg oral tablet 4 mg = 2 tab, PO, Bedtime, PRN as needed for muscle spasm, take 1 to 2 tabs as needed, 0 Refill(s) Active 07/15/2016 [facility] Centrum Silver Men's 1 tab, PO , Daily, 0 Refill(s) Active 07/15/2016 [facility] Docusate Sodium 100 MG Oral Capsule 100 mg = 1 cap, PO, Daily, PRN Constipation, # 20 cap, 0 Refill(s) Active 07/15/2016 [facility] Diclofenac 75 mg, PO, BID, 0 R efill(s) Active 07/15/2016 [facility] simvastatin 10 mg oral tablet 10 mg = 1 tab, PO, Bedtime, # 90 tab, 1 Refill(s) Active 07/15/2016 [facility] Atenolol 25 MG Oral Tablet 25 mg = 1 tab, PO, Daily, # 30 tab, 0 Refill(s) Active 07/15/2016 [facility] gabapentin 300 MG Oral Capsule 600 mg = 2 cap, PO, TID, 0 Refill(s) Active 07/15/2016 [facility] Zosyn Notes: (Same as: Zosyn) Dosing based on Piperacillin component MEDICATION WASTE Product Size: 3375 mg Product Wasted: ___ mg Inactive 07/15/2016 [facility] Vancomycin 1 ea, Route: MISC, Dosing Weight 95.455, kg, ONCALL, Start date: 07/15/16 4:00:00 JUNIOR ENGINEER, Duration: 1 doses or times, Pharmacy to dose Inactive 07/15/2016 [facility] vancomycin + sodium chloride 0.9% 500 mL INJ (for IV set) 500 mL 2001 mg: infuse over 2.5 hours ME DICATION WASTE Product Size: 1000 mg Product Wasted: ___ mg Inactive 07/15/2016 [facility] Morphine Notes: (Same as:MORPh ine Sulfate) Inactive 07/15/2016 [facility] Ondansetron Notes: (Same as: Eneida rojas) MEDICATION WASTE Product Size: 4 mg Product Wasted: ___ mg Inactive 07/15/2016 [facility] Acetaminophen Notes: Do not ex ceed 4 gm/day. (Same as: Tylenol) Inactive 07/15/2016 [facility] Saline Flush 0.9% Notes: (Same as: BD Posiflush) Inactive 07/15/2016 [facility] Sodium Chloride 0.154 MEQ/ML Injectable Solution 1,000 mL, Rate: 125 ml/hr, Infuse over: 8 hr, Route: IV, Dosing Weight 95.455 kg, Total Volume: 1,000, Start date: 07/15/16 3:10:00 JUNIOR ENGINEER, Duration: 30 day, Stop date: 08/14/16 3:09:00 JUNIOR ENGINEER Inactive 07/15/2016 [facility] Sodium Chloride 0.154 MEQ/ML Injectable Solution 3,000 mL, 1000 ml/hr, Infuse Over: 3 hr, Route: IV, 3,000, Drug form: INJ, ONCE, Priority: STAT, Dosing Weight 95.455 kg, Start date: 07/15/16 3:01:00 JUNIOR ENGINEER, Duration: 1 doses or times, Stop date: 07/15/16 3:01:00 JUNIOR ENGINEER Inactive 07/15/2016 [facility] Vancomycin 1,000 mg, Route: IV PB, Drug form: INJ, ONCE, Dosing Weight 95.455, kg, Priority: STAT, Start date: 07/15/16 2:50:00 JUNIOR ENGINEER, Stop date: 07/15/16 2:50:00 JUNIOR ENGINEER Inactive 07/15/2016 [facility] Lidocaine Hydrochloride 10 MG/ML Injectable Solution Notes: Preservative free. (Same as: Xylocaine MPF) Inactive 07/15/2016 [facility] Cefazolin Notes: (Same As: Anc ef, Kefzol) MEDICATION WASTE Product Size: 1000 mg Product Wasted: ___ mg Inactive 07/15/2016 [facility] Tylenol Notes: Do not exceed 4 gm/day. (Same as: Tylenol) Inactive 07/15/2016 [facility] Ondansetron Notes: (Same as: Z bob) MEDICATION WASTE Product Size: 4 mg Product Wasted: ___ mg Inactive 07/15/2016 [facility] Morphine Notes: (Same as:MORPh ine Sulfate) Inactive 07/15/2016 [facility] Sodium Chloride 0.154 MEQ/ML Injectable Solution 1,000 mL, 1000 ml/hr, Infuse Over: 1 hr, Route: IV, 1,000, Drug form: INJ, ONCE, Priority: STAT, Dosing Weight 95.455 kg, Start date: 07/15/16 0:50:00 JUNIOR ENGINEER, Duration: 1 doses or times, Stop date: 07/15/16 0:50:00 JUNIOR ENGINEER Inactive 07/15/2016 [facility] Allergies, Adverse Reactions, Alerts Substance Category Reaction Severity Reaction type Status Date Reported Comments Source Lipitor Assertion Drug allergy Active [facility] Norvasc Assertion Drug allergy Active [facility] Immunizations No Data Provided for This Section Results Order Name Results Value Reference Range Date Interpretation Comments Source URINE AND STOOL UA Urobilinogen <=1.0 mg/dL 0.1 - 1.0 07/15/2016 [facility] URINE AND STOOL UA Sq Epi None Seen 07/15/2016 [facility] URINE AND STOOL UA Spec Grav 1.028 <=1.030 07/15/2016 [facility] URINE AND STOOL UA Protein Negative mg/dL Negative mg/dL 07/15/2016 [facility] URINE AND STOOL UA Turbidity Clear (07/15/16 9:43 AM) Clear 07/15/2016 [facility] URINE AND STOOL UA Color Yellow *NA* (07/15/16 9:43 AM) Yellow 07/15/2016 [facility] URINE AND STOOL UA pH 5.0 5.0 - 8.0 07/15/2016 [facility] URINE AND STOOL UA Bili Negative *NA* (07/15/16 9:43 AM) Negative 07/15/2016 [facility] URINE AND STOOL UA Ketones Negative mg/dL Negative mg/dL 07/15/2016 [facility] URINE AND STOOL UA Glucose Negative mg/dL Negative mg/dL 07/15/2016 [facility] URINE AND STOOL UA Leuk Est Negative (07/15/16 9:43 AM) Negative 07/15/2016 [facility] URINE AND STOOL UA RBC 6 0 - 2 07/15/2016 [facility] URINE AND STOOL UA Nitrite Negative (07/15/16 9:43 AM) Negative 07/15/2016 [facility] URINE AND STOOL UA WBC 3 0 - 5 07/15/2016 [facility] URINE AND STOOL UA Blood Negative (07/15/16 9:43 AM) Negative 07/15/2016 [facility] URINE AND STOOL UA Bacteria Occasional /HPF None Seen /HPF 07/15/2016 [facility] URINE AND STOOL UA Mucus Many /LPF None Seen /LPF 07/15/2016 [facility] URINE AND STOOL UA Hyal Cast 1 0 - 2 07/15/2016 [facility] CHEM PANEL Lactic Acid Lvl 1.8 0.5 - 2.2 07/15/2016 [facility] ELECTROLYTES AGAP 16.9 10.0 - 20.0 07/15/2016 [facility] ELECTROLYTES B/C Ratio 27 6 - 25 07/15/2016 [facility] ELECTROLYTES Globulin 4.1 2.7 - 4.2 07/15/2016 [facility] ELECTROLYTES A/G Ratio 0.9 0.7 - 1.6 07/15/2016 [facility] ELECTROLYTES Potassium Lvl 3.9 3.5 - 5.1 07/15/2016 [facility] ELECTROLYTES Sodium Lvl 139 135 - 145 07/15/2016 [facility] ELECTROLYTES Calcium Lvl 8.1 8.5 - 10.5 07/15/2016 [facility] ELECTROLYTES CO2 22 24 - 32 07/15/2016 [facility] ELECTROLYTES Chloride Lvl 104 95 - 109 07/15/2016 [facility] ELECTROLYTES Glucose Lvl 138 70 - 99 07/15/2016 [facility] ELECTROLYTES Creatinine Lvl 1.0 0 0.50 - 1.40 07/15/2016 [facility] ELECTROLYTES BUN 27 7 - 22 07/15/2016 [facility] ELECTROLYTES Albumin Lvl 3.6 3.5 - 5.0 07/15/2016 [facility] ELECTROLYTES Total Protein 7.7 6.4 - 8.4 07/15/2016 [facility] ELECTROLYTES Bili Total 0.5 0.2 - 1.3 07/15/2016 [facility] ELECTROLYTES Alk Phos 95 39 - 136 07/15/2016 [facility] ELECTROLYTES AST 22 0 - 37 07/15/2016 [facility] ELECTROLYTES ALT 31 0 - 65 07/15/2016 [facility] ELECTROLYTES eGFR 76 07/15/2016 Result Comment: The [...] should be multiplied by the estimated BMI. [facility] HEMATOLOGY Sed Rate 21 0 - 15 07/15/2016 [facility] HEMATOLOGY MCH 30.1 27.0 - 31.0 07/15/2016 [facility] HEMATOLOGY MCV 87.2 80.0 - 94.0 07/15/2016 [facility] MCHC 34.5 32.0 - 36.0 07/15/2016 [facility] HEMATOLOGY RDW 14.1 11.5 - 14.5 07/15/2016 [facility] Hct 38.3 42.0 - 54.0 07/15/2016 [facility] MPV 10.8 7.4 - 10.4 07/15/2016 [facility] Platelet 166 133 - 450 07/15/2016 [facility] WBC 17.0 3.7 - 10.4 07/15/2016 [facility] Hgb 13.2 14.0 - 18.0 07/15/2016 [facility] RBC 4.39 4.70 - 6.10 07/15/2016 [facility] INR 1.07 0.85 - 1.17 07/15/2016 [facility] PT 14.1 12.0 - 14.7 07/15/2016 [facility] PTT 28.4 22.9 - 35.8 07/15/2016 [facility] Basophils # 0.1 0.0 - 0.2 07/15/2016 [facility] Segs-Bands # 14.0 1.5 - 8.1 07/15/2016 [facility] Basophils 0.6 0.0 - 1.0 07/15/2016 [facility] Monocytes # 1.5 0.0 - 0.8 07/15/2016 [facility] Lymphocytes # 1.4 1.0 - 5.5 07/15/2016 [facility] Monocytes 8.9 2.0 - 12.0 07/15/2016 [facility] Lymphocytes 8.0 20.0 - 40.0 07/15/2016 [facility] Segs 82.5 45.0 - 75.0 07/15/2016 [facility] IMMUNOLOGY C-REACTIVE PROTEIN 54.6 <=2.9 mg/L 07/15/2016 [facility] Pathology Reports No Data Provided for This Section Diagnostic Reports Report Value Date Source Spine lumbar 2 or 3 views DX P atient Name: SOPHIE DUNNE : 1945; Age: 71 years y/o Male MR: [id number] Study: Spine lumbar 2 or 3 views DX 07/14/2016 10:29 PM JUNIOR ENGINEER Ordering Physician: Deepali Altman Comparison: None Clinical [...] the abdomen and pelvis. SL: BETY 07/14/2016 [facility] Knee 3 views DX Patient Name: SOPHIE DUNNE : 1945; Age: 71 years y/o Male MR: [id number] Study: Knee 3 views DX 07/14/2016 10:29 PM JUNIOR ENGINEER Ordering Physician: Deepali Altman Comparison: None Clinical Indication: Left knee pain and swelling; Left knee prosthesis is noted with the prosthetic components in satisfactory position. Prepatellar soft tissue swelling is noted. Moderate joint fluid collection is noted. No acute fracture, dislocation or osteolysis. SL: BETY 07/14/2016 [facility] Consultation Notes No Data Provided for This Section Discharge Summaries No Data Provided for This Section History and Physicals No Data Provided for This Section Vital Signs Vital Sign Value Date Comments Source Systolic (mm Hg) 172 07/15/2016 [facility] Diastolic (mm Hg) 71 07/15/2016 [facility] Respitory Rate 18 07/15/2016 [facility] Temperature Oral (F) 101.1 F 07/15/2016 [facility] Heart Rate 78 07/15/2016 [facility] Respitory Rate 17 07/15/2016 [facility] Temperature Oral (F) 99.8 F 07/15/2016 [facility] Systolic (mm Hg) 142 07/15/2016 [facility] Diastolic (mm Hg) 56 07/15/2016 [facility] Heart Rate 72 07/15/2016 [facility] Systolic (mm Hg) 149 07/15/2016 [facility] Diastolic (mm Hg) 72 07/15/2016 [facility] Heart Rate 80 07/15/2016 [facility] Temperature Oral (F) 98.6 F 07/15/2016 [facility] Height 177.8 cm 07/15/2016 [facility] BMI Calculated 30.2 07/15/2016 [facility] Weight 95.455 07/15/2016 [facility] Weight 95.455 07/15/2016 [facility] Encounters Location Location Details Encounter Type Encounter Number Reason For Visit Attending Provider ADM Date DC Date Status Source [facility] Inpatient [id number] Prateek Jose 07/15/2016 07/16/2016 [facility] Procedures No Data Provided for This Section Assessment and Plan No Data Provided for This Section Plan of Care No Data Provided for This Section Social History Social History Date Source Social History TypeResponse Smoking Status Never smoker; Exposure to Tobacco Smoke None; Cigarette Smoking Last 365 Days No; Reg Smoking Cessation Counseling No 07/15/2016 [facility] Family History No Data Provided for This Section Advance Directives No Data Provided for This Section Functional Status No Data Provided for This Section
--- OUTSIDE RECORDS SUMMARY | 2019-11-21 22:57 | XMS REPORT | Clinical Summary ---
Author Author [facility] Address Unknown Phone Unavailable Care Team Providers Care Sap Basis Administrator Name Role Phone Michele Barry Gino PCP [...] unit Tab Units by mouth daily. Active pltcgjfq-kqaf-nvx-folic Take 1 tablet 0 acid by mouth. (QWNWONTIZHQB-WTKA-MKOLEG LS-FOLIC ACID) 3,500-18-0.4 unit-mg-mg Chew Active ferrous [...] ot Implanted Type Area Manufactur er 03/14/2014 [id number] / [id number] / [id number] Leroy Michaud Bio 5cc - [id number] Bone N/A: Neck R TI Implanted: Qty: 1 on 07/25/2013 by BIOLOGICS Giovani Sapp MD 04/12/2018 [id number] / / [id number] Infusion Set Bone Infuseii Lg Bone N/A: Spine MEDTRONIC: [id number] - [id number] Lumbar SPINAL Implanted: Qty: 1 on 11/10/2016 by BIOLOGICS Heriberto Zee MD 08/04/2017 [id number] / [id number] / Bone Grft Sub Dbx Pty 5ml [id number] - Bone N/A: Spine MUSCULOSKE [id number] Lumbar LETAL Implanted: Qty: 1 on 11/10/2016 by Heriberto Casey MD FND 2019 [id number] / [id number] / Tiss Live Puty Dbm Optium 10cc Bone N/A: Spine LIFENET:LI Tput10 - [id number] Lumbar FENET Implanted: Qty: 1 on 11/11/2016 by Heriberto Casey MD SRV 07/11/2018 [id number] / [id number] / Bone Grft Sub Dbx Pty 5ml [id number] - Bone N/A: Spine MUSCULOSKE [id number] Lumbar LETAL Implanted: Qty: 1 on 11/11/2016 by Heriberto Casey MD FND 12/22/2017 704602 / [id number] / Bone Grft Sub Dbx Pty 10ml [id number] - Bone N/A: Spine MUSCULOSKE [id number] Lumbar LETAL Implanted: Qty: 1 on 11/11/2016 by Heriberto Casey MD FND 05/09/2019 [id number] / [id number] / Bone Chip Canc 1.7-10mm 30ml Bone N/A: Spine M USCULOSKE [id number] - [id number] Lumbar LETAL Implanted: Qty: 1 on 11/11/2016 by Heriberto Casey MD FND 11/09/2014 [id number] / / [id number] Cement,Bone Simplex P Speedset Full Cement/Juaquin Left: Knee [place] Dose 40gm - [id number] ler/Adhesi Orthopaedi Implanted: Qty: 2 on 12/04/2013 by Marino Courtney MD 04/11/2018 [id number] / / [id number] Matrix Floseal Hemo W/O Ndl 10 Cement/Juaquin N/A: Spine MOORE:BIO [id number] - [id number] ler/Adhesi Lumbar SCI Implanted: Qty: 1 on 11/10/2016 by Heriberto Busby MD 04/11/2018 [id number] / / [id number] Matrix Floseal Hemo W/O Ndl 10 Cement/Juaquin MOORE: BIO [id number] - [id number] ler/Adhesi SCI Implanted: Qty: 3 on 11/11/2016 by Heriberto Busby MD 12/09/2017 [id number] / / [id number] Sealant Duraseal Spine Ds3 5ml Cement/Juaquin N/A: Spine COVIDIEN:U -6520 - [id number] ler/Adhesi Lumbar S Implanted: Qty: 1 on 11/11/2016 by shimon RANDHAWA G:Heriberto Antony MD [facility] 04/11/2021 [id number] / / [id number] Patella,Persona All Poly 35mm - Joints Left: Knee DAQUAN INC [id number] Implanted: Qty: 1 on 12/04/2013 by Marino Rabago MD 09/10/2023 [id number] / / [id number] Tibial Stem,Persona 5deg Sz G L - Joints Left: Knee [employer] INC [id number] Implanted: Qty: 1 on 12/04/2013 by Marino Rabago MD 08/09/2023 [id number] / / [id number] Femoral,Persona Cruciate Retaining Joints Left: Knee DAQUAN INC Std Sz 11 L - [id number] Implanted: Qty: 1 on 12/04/2013 by Marino Rabago MD 04/11/2020 [id number] / / [id number] Femoral,Persona Articular Surface Joints Left: Knee [employer]QUAN INC Crutiate Retaining L 7-12 Gh 10mm - [id number] Implanted: Qty: 1 on 12/04/2013 by Marino Rabago MD 05/11/2021 [id number] / / [id number] Cr Polyethylese Left 10mm Height Joints Left: Knee Daquan Implanted: Qty: 1 on 07/18/2016 by Marino Rabago MD [id number] / / Manuel,Oasys - [id number] Spine N/A: Neck STRYK ER Implanted: Qty: 10 on 07/25/2013 by Giovani Cho MD [id number] / / [id number] Screw,Polyaxial Cancellous 3.5x14mm Spine N/A: Neck KRISTINE - [id number] NERI Implanted: Qty: 10 on 07/25/2013 by Giovani Sapp MD [id number] / / [id number] Balta,Oasys Ti 3.5x70mm - [id number] Spine N/A: Neck KRISTINE Implanted: Qty: 2 on 07/25/2013 by Giovani Cho MD 04/21/2024 [id number] / / [id number] Dev Clydesdl Ptc 18mm 6d 10x50 Spine N/A: Spine MEDTRONIC: [id number] - [id number] Lumbar SPINAL Implanted: Qty: 1 on 11/10/2016 by Heriberto Chilel MD 04/07/2023 [id number] / / [id number] Dev Clydesdl Ptc 18mm 6d 10x55 Spine N/A: Spine MEDTRONIC: [id number] - [id number] Lumbar SPINAL Implanted: Qty: 1 on 11/10/2016 by Heriberto Chilel MD 03/23/2024 [id number] / / [id number] Dev Clydesdl Ptc 18mm 6d 10x55 Spine N/A: Spine MEDTRONIC: [id number] - [id number] Lumbar SPINAL Implanted: Qty: 1 on 11/10/2016 by Heriberto Chilel MD [id number] / / [id number] Screw Mas Cc 7.5x50 [id number] - Spine N/A: Spine MEDTRONIC: [id number] Lumbar SPINAL Implanted: Qty: 8 on 11/11/2016 by Heriberto Chilel MD [id number] / / [id number] Screw Set Ti Ns Brk Off 5.5 - Spine N/A: Spine MEDTRONIC: [id number] Lumbar SPINAL Implanted: Qty: 12 on 11/11/2016 by Heriberto Chilel MD [id number] / / [id number] Balta Plus 5.5mm [id number] - Spine N/A: Spine ME DTRONIC: [id number] Lumbar SPINAL Implanted: Qty: 1 on 11/11/2016 by Heriberto Chilel MD [id number] / / [id number] Scr Mas 8.5x90 [id number] - Spine N/A: Spine M EDTRONIC: [id number] Lumbar SPINE:SOFA Implanted: Qty: 1 on 11/11/2016 by Heriberto Lerma MD [id number] / / [id number] Ballast Mas 8.5x80 Spine N/A: Spine MEDTRONIC Implanted: Qty: 1 on 11/11/2016 by Lumbar Heriberto Zee MD [id number] / / [id number] Screw Mas Cc 7.5 X 45 [id number] - Spine N/A: Spine MEDTRONIC: [id number] Lumbar SPINAL Implanted: Qty: 2 on 11/11/2016 by BIOLOGICS Heriberto Zee MD Results Not on fileafter 11/20/2018 Insurance Payer Benefit Subscriber ID Type Phone Address Plan / Group [employer] xxxxxxxxxxx MEDICARE ADV [id number] (Home) [place] [address] Advance Directives For more information, please contact: [address] [address] Date Inactivated Comments Code Status [...]
--- OUTSIDE RECORDS SUMMARY | 2019-11-21 22:57 | XMS REPORT | Continuity of Care Document ---
Author Author [facility] t Organization [facility] Address [address] [place] [address] Phone Unavailable Care Team Providers Care Oracle Scm Consultant Name Role Phone NONSTAFF PCP Unavailable Mahsa CANTOR Attphys Unavailable DUCHAMP, A FLAKITA Attphys Unavailable SWEET, A LAIRD Attphys Unavailable ROPPER, EMIR HERIBETRO Attphys Unavailable ALDAIR MARIO Attphys Unavailable SOFÍA GRANT Attphys Unavailable Prateek Jose Attphys FELICIA SANCHEZ Admphys Unavailable ROPPER, EMIR HERIBERTO Admphys Unavailable SAIKIFABRICE Ackerman Admphys Unavailable JUANITASOFÍA MORENO Admphys Unavailable Prateek Jose Admphys Payers Payer Name Policy Type Policy Number Effective Date Expiration Date Serene Shafer Care Medicare Advantage [id number] [facility] Problems Condition Name Condition Details Condition Category Status Onset Date Resolution Date Last Treatment Date Treating Clinician Comments Source Flat back syndrome Flat back syndrome Disease Active 2016-11-10 00:00:0 0 [facility] Lumbar scoliosis Lumbar scoliosis Disease Active 2016-11-10 00:00:00 [facility] Pulmonary embolus Pulmonary embolus Disease Active 2016-07-26 00:00:00 [facility] Dyspnea and respiratory abnormality Dyspnea and respiratory abno rmality Disease Active 2016-07-26 00:00:00 [facility] HCAP (healthcare-associated pneumonia) HCAP (healthcare-asso ciated pneumonia) Disease Active 2016-07-26 00:00:00 [facility] Infection of total left knee replacement, 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, subsequent encounter Disease Active 2016-07-26 00:00:00 [facility] Hypertension Hypertension Disease Active 2016-07-26 00:00:00 [facility] Infection of total knee replacement, initial encounter Infection of total knee replacement, initial encounter Disease Active 2016-07-16 00:00:00 [facility] LOWER BACK PAIN LOWE R BACK PAIN Active 07/14/2016 [facility] Active 2016-07-14 00:00:00 2016-07-14 23:52:00 [facility] CELLULITIS, EFFUSION OF KNEE JOINT LEFT, CELLULITIS, EFFUSION OF KNEE JOINT LEFT, Active 07/14/2016 [facility] Diagnosis A ctive 2016-07-14 00:00:00 2016-07-18 11:33:00 M barrett Bhatia POST DC FU- NO ORDER POST DC FU- NO ORDER Active 08/30/2013 [facility] Diagnosis Active 2013-08-30 00:00:00 2014-02-11 02:08:00 [facility] Spinal cord injury, cervical region Spinal cord injury, cervical region Disease Active 2013-07-31 00:00:00 [facility] Post-operative complication Post-operative complication Disease Active 2013-07-31 00:00:00 [facility] Neurological deficit present Neurological deficit present Disease Active 2013-07-31 00:00:00 [facility] Dysphagia Dysphagia Disease Active 2013-07-31 00:00:00 [facility] Hypocalcemia Hypocalcemia Disease Active 2013-07-31 00:00:00 [facility] Anemia associated with acute blood loss Anemia associated wi th acute blood loss Disease Active 2013-07-31 00:00:00 [facility] History of steroid therapy History of steroid therapy Disease Active 2013-07-31 00:00:00 [facility] Anxiety Anxiety Disease Active 2013-07-31 00:00:00 [facility] Cervical spondylosis Cervical spondylosis Disease Active 00:00:00 [facility] Hypotension (arterial) Hypotension (arterial) Disease Active 2013-07-31 00:00:00 [facility] Hypertension due to medical or surgical care Hypertens ion due to medical or surgical care Disease Active 2013-07-31 00:00:00 [facility] Cervical myelopathy Cervical myelopathy Disease Active 2013-07-25 00:00 [facility] ([facility]) Oste oarthritis (disorder) Resolved Problem 07/18/2016 [facility] Problem Resolved 2016-07-18 04:21:36 [facility] Hemiparesis (disorder) Ehsan paresis (disorder) Active Problem 07/18/2016 [facility] Problem Active 2016-07-18 04:21:3 6 [facility] Quadriparesis (disorder) Quad riparesis (disorder) Active Problem 07/18/2016 [facility] Problem Active 2016-07-18 04:21:3 6 [facility] CELLULITIS, UNSPECIFIED CELL ULITIS, UNSPECIFIED Active [facility] Diagnosis Active 2016-07-18 11:33:00 [facility] EFFUSION, LEFT KNEE EFFU TAN, LEFT KNEE Active [facility] Diagnosis Active 2016-07-18 11:33:[address] [facility] SIRS OF NON-INFECTIOUS ORIGIN W/O ACUTE SIRS OF NON- INFECTIOUS ORIGIN W/O ACUTE Active [facility] Diagnosis Active 2016-07-18 11:33:00 [facility] Allergies, Adverse Reactions, Alerts Allergy Name Allergy Type Status Severity Reaction(s) Onset Date Inacti ve Date Treating Clinician Comments Source Warfarin Propensity to adverse reactions Active Severe 2018-02 00:00:00 [facility] Atorvastatin Drug Intolerance Active Other (See Comments) 2013-07-24 00:00:00 Muscle pain [facility] Amlodipine Drug Intolerance Active Other (See Comments) 2013-07 00:00:00 Muscle pain [facility] Lipitor Lipitor Active [facility] Norvasc Norvasc Active [facility] Social History Social Habit Start Date Stop Date Quantity Comments Source Sex Assigned At [facility] Alcohol Comment 2013-07-24 00:00:00 2013-07-24 00:00:00 seldom [facility] Smoking Status Start Date Stop Date Source Never sm[facility] Ordered Medication Name Filled Medication Name Start Date Stop Da te Current Medication? Ordering Clinician Indication Dosage Frequency Signature (SIG) Comments Components Source Alprazolam 0.25 Mg Tablet Alprazolam 0.25 Mg Tablet 2018-03-11 00:00: 00 Yes Trae Almaguer Np .25 Every 8 Hours [facility] Cephalexin Monohydrate (Keflex) 500 Mg Capsule Cephale trinity Monohydrate (Keflex) 500 Mg Capsule 2018-03-11 00:00:00 Yes Trae Almaguer Np 500 Every 6 Hours [facility] Hydrocodone/Apap 5MG-325MG 1 Ea Tab Hydrocodone/Apap 5MG-325 MG 1 Ea Tab 2018-03-11 00:00:00 Yes Trae Almaguer Np 1 Every 4 Hours as needed for Moderate Pain (4-6) [facility] Lidocaine Patch 1 Ea Patch Lidocaine Patch 1 Ea Patch 2018-03-11 00:0 0:00 Yes Trae Almaguer Np 1 Daily I [facility] Rivaroxaban (Xarelto) 15 Mg Tablet Rivaroxaban (Xarelto) 15 Mg Tablet 2018-03-11 00:00:00 Yes Trae Almaguer Np 15 Twice Daily With M eals [facility] Zolpidem Tartrate (Ambien) 5 Mg Tablet Zolpidem Tartrate (Am marie) 5 Mg Tablet 2018-03-11 00:00:00 Yes Trae Almaguer Np 5 Bedtime [facility] docusate sodium (COLACE) 100 MG capsule 2016-10-19 11:57:59 Yes 100mg QD Take 100 mg by mouth daily . [facility] lisinopril (PRINIVIL,ZESTRIL) 10 MG tablet 2016-10-19 11:57:59 Yes 10mg QD Take 10 mg by mouth nightly . I [facility] senna (SENOKOT) 8.6 mg tablet 2016-10-19 11:57:59 Yes 2{tbl} Take 2 tablets by mouth daily with lunch . [facility] BIFIDOBACTERIUM INFANTIS (ALIGN ORAL) 2016-10-19 11:57:59 Y es QD Take by mouth daily. [facility] ferrous sulfate 325 (65 FE) MG tablet 2016-10-19 11:57:58 Y es 325mg Take 325 mg by mouth daily with breakfast. [facility] cyanocobalamin (VITAMIN B-12) 1000 MCG tablet 2016-10-19 11:57:5 8 Yes 1000ug QD Take 1,000 mcg by mouth daily. [facility] cephalexin (KEFLEX) 500 MG capsule 2016-10-19 11:57:58 Yes 500mg Q.25D Take 500 mg by mouth 4 (four) times daily. [facility] omeprazole (PRILOSEC) 40 MG capsule 2016-10-19 11:57:58 Yes 40mg QD Take 40 mg by mouth daily. [facility] pregabalin (LYRICA) 100 MG capsule 2016-10-19 11:57:58 Y es 100mg Q.[id number] Take 100 mg by mouth 3 (three) times daily. [facility] HYDROcodone-acetaminophen (NORCO 10-325) 10-325 mg per table t 2016-10-19 11:57:58 Yes 1{tbl} Take 1 tab let by mouth every 6 (six) hours as needed for Pain. [facility] atenolol (TENORMIN) 25 MG tablet 2016-08-04 00:00:00 Yes 25mg QD Take 25 mg by mouth nightly. [facility] RN-Do not give Vanc till trough drawn 07/16/16@ 15:30 2016-07-16 22:30:00 No RN-Do not gi ve Vanc till trough drawn 07/16/16@ 15:30, ATTN:RN - REMINDER, Drug form: MISC, Route: MISC, ONCE, 07/16/16 16:30:00 [employer], Stop date: 07/16/16 16:30:00 [employer] Ivonne Bhatia RN-Do not give Vanc till trough drawn 07/16/16@ 16:30 2016-07-16 22:00:00 No RN-Do not gi ve Vanc till trough drawn 07/16/16@ 16:30, ATTN:RN - REMINDER, Drug form: MISC, Route: MISC, ONCE, 07/16/16 16:00:00 [employer], Stop date: 07/16/16 16:00:00 [employer] [facility] cholecalciferol, vitamin D3, 5,000 unit Tab 2016-07-16 00:40:06 Yes 5000U QD Take 5,000 Units by mouth daily. [facility] dzbudwyc-crri-oux-folic acid (MULTIVITAM KQ-KTEZ-QJMEPFZK-FOLIC ACID) 3,500-18-0.4 unit-mg-mg Chew 2016-07-16 00:40:06 Yes 1{tbl} Take 1 tablet by mouth. [facility] vancomycin + sodium chloride 0.9% 500 mL INJ (for IV set) 50 0 mL 2016-07-15 23:00:00 No 2001 mg: infuse over 2.5 hours MEDICATION WASTE Product Size: 1000 mg Product Wasted: ___ mg Ivonne Bhatia ondansetron 2 mg/mL injectable solution 2016-07-15 19:14:00 Yes 4 mg = 2 mL, IVP, Q6H, PRN Nausea & Vomiting, 0 Refill(s) [facility] [address] Morphine 2016-07-15 19:14:00 Yes 2 mg = 1 mL, IVP, Q4H, PRN Pain Score 7-10, 0 Refill(s) Ivonne Bhatia acetaminophen 325 mg oral tablet 2016-07-15 19:14:00 Yes 100.4 F, 0 Refill(s) [facility] heparin 2016-07-15 15:00:00 No Notes: porci ne heparin [facility] tramadol hydrochloride 50 MG Oral Tablet 2016-07-15 11:11:00 Yes 50 mg = 1 tab, PO, BID, PRN Pain Score 6-10, 0 Refill(s) [facility] Senna-gen 8.6 mg oral tablet 2016-07-15 11:11:00 Yes 17.2 mg = 2 tab, PO, Bedtime, PRN for constipation, # 100 tab, 0 Refill(s) Ivonne [place] lisinopril 20 mg oral tablet 2016-07-15 11:11:00 Yes 20 mg = 1 tab, PO, Daily, # 30 tab, 0 Refill(s) Raine Bhatia tizanidine 2 mg oral capsule 2016-07-15 11:11:00 Yes 2 mg = 1 cap, PO, Bedtime, PRN for muscle spasm, take 1 to 2 tabs as needed, # 30 cap, 0 Refill(s) Ivonne Bhatia Vitamin D3 5000 intl units oral capsule 2016-07-15 11:11:00 Yes 5,000 IntlUnit = 1 cap, PO, Daily, # 30 cap, 1 Refill(s) Ivonne [facility] tizanidine 2 mg oral tablet 2016-07-15 11:11:00 Yes 4 mg = 2 tab, PO, Bedtime, PRN as needed for muscle spasm, take 1 to 2 tabs as needed, 0 Refill(s) [facility] [place] Centrum Silver Men's 2016-07-15 11:11:00 Yes 1 tab, PO, Daily, 0 Refill(s) Ivonne Mayoann Docusate Sodium 100 MG Oral Capsule 2016-07-15 11:11:00 Yes 100 mg = 1 cap, PO, Daily, PRN Constipation, # 20 cap, 0 Refill(s) Ivonne [place] Diclofenac 2016-07-15 11:11:00 Yes 75 mg, PO , BID, 0 Refill(s) Ivonne Srir[address] simvastatin 10 mg oral tablet 2016-07-15 11:11:00 Yes 10 mg = 1 tab, PO, Bedtime, # 90 tab, 1 Refill(s) Serenaor ial [facility] Atenolol 25 MG Oral Tablet 2016-07-15 11:11:00 Yes 25 mg = 1 tab, PO, Daily, # 30 tab, 0 Refill(s) Serenaoria l Sr[facility] gabapentin 300 MG Oral Capsule 2016-07-15 11:11:00 Yes 600 mg = 2 cap, PO, TID, 0 Refill(s) Ivonne Starr nn Zosyn 2016-07-15 10:00:00 No Notes: (Same as: Zosyn) Dosing based on Piperacillin component MEDICATION WASTE Product Size: 3375 mg Product Wasted: ___ mg Ivonne Bhatia Vancomycin 2016-07-15 10:00:00 No 1 ea, Route: MISC, Dosing Weight 95.455, kg, ONCALL, Start date: 07/15/16 4:00:00 [employer], Duration: 1 doses or times, Pharmacy to dose Ivonne Bhatia vancomycin + sodium chloride 0.9% 500 mL INJ (for IV set) 50 0 mL 2016-07-15 09:25:00 No 2001 mg: infuse over 2.5 hours MEDICATION WASTE Product Size: 1000 mg Product Wasted: ___ mg [facility] Morphine 2016-07-15 09:10:00 No Not es: (Same as:MORPhine Sulfate) [facility] Ondansetron 2016-07-15 09:10:00 No Notes: (Same as: Zofran) MEDICATION WASTE Product Size: 4 mg Product Wasted: ___ mg [facility] Acetaminophen 2016-07-15 09:10:00 No Notes: Do not exceed 4 gm/day. (Same as: Tylenol) [facility] Saline Flush 0.9% 2016-07-15 09:10:00 No Notes: (Same as: BD Posiflush) [facility] Sodium Chloride 0.154 MEQ/ML Injectable Solution 2016-07-15 09:1 0:00 No 1,000 mL, Rate: 125 ml/hr, I nfuse over: 8 hr, Route: IV, Dosing Weight 95.455 kg, Total Volume: 1,000, Start date: 07/15/16 3:10:00 [employer], Duration: 30 day, Stop date: 08/14/16 3:09:00 [employer] [facility] Sodium Chloride 0.154 MEQ/ML Injectable Solution 2016-07-15 09:0 1:00 No 3,000 mL, 1000 ml/hr, Infuse Over: 3 hr, Route: IV, 3,000, Drug form: INJ, ONCE, Priority: STAT, Dosing Weight 95.455 kg, Start date: 07/15/16 3:01:00 [employer], Duration: 1 doses or times, Stop date: 07/15/16 3:01:00 [employer] [facility] Vancomycin 2016-07-15 08:50:00 No 1,000 mg, Route: IVPB, Drug form: INJ, ONCE, Dosing Weight 95.455, kg, Priority: STAT, Start date: 07/15/16 2:50:00 [employer], Stop date: 07/15/16 2:50:00 [employer] [facility] Lidocaine Hydrochloride 10 MG/ML Injectable Solution 07-15 06:54:00 No Notes: Preservative free. (Same as: Xyl ocaine MPF) [facility] Cefazolin 2016-07-15 06:54:00 No Notes: (Same As: Ancef Kefzol) MEDICATION WASTE Product Size: 1000 mg Product Wasted: ___ mg [facility] Tylenol 2016-07-15 06:51:00 No Notes: Do not exceed 4 gm/day. (Same as: Tylenol) [facility] Ondansetron 2016-07-15 06:50:00 No Notes: (Same as: Zofran) MEDICATION WASTE Product Size: 4 mg Product Wasted: ___ mg [facility] Morphine 2016-07-15 06:50:00 No Not es: (Same as:MORPhine Sulfate) [facility] Sodium Chloride 0.154 MEQ/ML Injectable Solution 2016-07-15 06:5 0:00 No 1,000 mL, 1000 ml/hr, Infuse Over: 1 hr, Route: IV, 1,000, Drug form: INJ, ONCE, Priority: STAT, Dosing Weight 95.455 kg, Start date: 07/15/16 0:50:00 [employer], Duration: 1 doses or times, Stop date: 07/15/16 0:50:00 [employer] [facility] simvastatin (ZOCOR) 40 MG tablet 2013-11-26 14:41:48 Yes 40mg QD Take 40 mg by mouth nightly. [facility] Atenolol 50 Mg Tablet Atenolol 50 Mg Tablet Yes 25 Daily [facility] Baclofen 10 Mg Tablet Baclofen 10 Mg Tablet Yes 10 Three Times A Day [facility] Cholecalciferol (Vitamin D3) (Vitamin D) 1,000 Unit [place] Cholecalciferol (Vitamin D3) (Vitamin D) 1,000 Unit Tablet Yes 5000 Daily [facility] Docusate Sodium 100 Mg Capsule Docusate Sodium 100 Mg Capsule Yes 100 [facility] Fluticasone Propionate 16 Gm [place].susp Fluticasone Propiona te 16 Gm [place].susp Yes 50 Daily [facility] Gabapentin 300 Mg Capsule Gabapentin 300 Mg Capsule Yes 300 Three Times A Day [facility] Lisinopril 10 Mg Tablet Lisinopril 10 Mg Tablet Yes 10 Daily [facility] Multivitamin (Multi-Vitamin Daily) 1 Each Tablet Multi vitamin (Multi-Vitamin Daily) 1 Each Tablet Yes [facility] Tramadol Hcl (Ultram) 50 Mg Tablet Tramadol Hcl (Ultram) 50 Mg Tablet Yes 50 Every 6 Hours [facility] Vital Signs Vital Name Observation Time Observation Value Comments Source Systolic (mm Hg) 2016-07-15 21:41:00 Lavelle rial [place] Diastolic (mm Hg) 2016-07-15 21:41:00 Mem orial [place] Respitory Rate 2016-07-15 21:41:00 Memori al [place] Temperature Oral (F) 2016-07-15 21:41:00 101.1 F [facility] [place] Heart Rate 2016-07-15 21:41:00 [facility] [place] Respitory Rate 2016-07-15 17:30:00 Memori al [place] Temperature Oral (F) 2016-07-15 17:30:00 99.8 F [facility] Systolic (mm Hg) 2016-07-15 17:30:00 Lavelle rial [facility] Diastolic (mm Hg) 2016-07-15 17:30:00 Mem orial [place] Heart Rate 2016-07-15 17:30:00 [facility] [place] Systolic (mm Hg) 2016-07-15 14:34:00 Lavelle rial [facility] Diastolic (mm Hg) 2016-07-15 14:34:00 Mem orial [place] Heart Rate 2016-07-15 14:34:00 [facility] [place] Temperature Oral (F) 2016-07-15 14:34:00 98.6 F [facility] Height 2016-07-15 10:47:00 177.8 cm [facility] [place] BMI Calculated 2016-07-15 10:47:00 Memori al [facility] Weight 2016-07-15 10:47:00 [facility] Weight 2016-07-15 04:20:00 [facility] Procedures This patient has no known procedures. Encounters Start Date/Time End Date/Time [facility] ID Source 2019-05-24 22:54:00 2019-05-25 01:38:00 Departed Emergency Room [facility] [id number] [facility] 2019-05-19 14:42:00 2019-05-19 19:06:00 Departed Emergency Room 1 JONG CANTOR [facility] [id number] [facility] 2018-06-23 13:28:00 2018-06-23 17:22:00 Departed Emergency Room 1 FLAKITA DONOHUE [facility] [id number] [facility] 2018-03-09 00:54:00 2018-03-12 10:33:00 Discharged Inpatient 1 XIOMARA HOFFMAN [facility] [id number] [facility] 2016-07-14 22:14:00 2016-07-15 20:14:00 Outpatient Prateek Jose [facility] [id number] Results Test Description Test Time Test Comments Results Result Comments Source Differential Total Cells Counted 2019-05-25 03:09:00 Test Item Differential Total Cells Counted (test code = Differarmando tial Total Cells Counted) 100 [facility] % (Manual)2019-05-25 03:09:00 * Test Item Value Reference Range Interpretation Comments Neutrophils % (Manual) (test code = 49127-8) 44 40-74 [facility]ymphocytes % (Manual)2019-05-25 03:09:00 * Test Item Value Reference Range Interpretation Comments Lymphocytes % (Manual) (test code = 737-7) 40 19-48 [facility]ocytes % (Manual)2019-05-25 03:09:00* Test Item Value Reference Range Interpretation Comments Monocytes % (Manual) (test code = 744-3) 10 3.4-9.0 H [facility]osinophils % (Manual)2019-05-25 03:09:00 * Test Item Value Reference Range Interpretation Comments Eosinophils % (Manual) (test code = 714-6) 6 0-7 [facility] CampusPlatelet [id number] 03:09:00* Test Item Value Reference Range Interpretation Comments Platelet Estimate (test code = 81382-8) ADEQUATE [facility] CampusPlatelet Morphology [id number] 03:09:00* Test Item Value Reference Range Interpretation Comments Platelet Morphology Comment (test code = 98857-9) NORMAL [facility] CampusRed Cell Morphology [id number] 03:09:00* Test Item Value Reference Range Interpretation Comments Red Cell Morphology Comment (test code = 6742-1) NORMAL [facility] CampusCreatine Kinase [id number] 01:13:00* Test Item Value Reference Range Interpretation Comments Creatine Kinase MB (test code = 12484-8) 4.60 0-5.0 [facility] CampusTroponin [id number] 01:13:00* Test Item Value Reference Range Interpretation Comments Troponin I (test code = SDW3784) 0.005 0-0.300 [facility] [id number] 00:48:00* Test Item Value Reference Range Interpretation Comments Sodium Level (test code = 2951-2) 140 136-145 [facility]Potassium [id number] 00:48:00* Test Item Value Reference Range Interpretation Comments Potassium Level (test code = 2823-3) 4.0 3.5-5.1 [facility] CampusChloride [id number] 00:48:00* Test Item Value Reference Range Interpretation Comments Chloride Level (test code = 2075-0) 102 98-107 [facility] CampusCarbon Dioxide [id number] 00:48:00* Test Item Value Reference Range Interpretation Comments Carbon Dioxide Level (test code = 2028-9) 25 22-29 [facility] CampusAnion [id number] 00:48:00* Test Item Value Reference Range Interpretation Comments Anion Gap (test code = 27251-6) 17.0 8-16 H [facility] CampusBlood Urea [id number] 00:48:00* Test Item Value Reference Range Interpretation Comments Blood Urea Nitrogen (test code = 3094-0) 19 7-26 [facility] CampusCreatinine2019-12-14 00:48:00* Test Item Value Reference Range Interpretation Comments Creatinine (test code = 2160-0) 1.08 0.72-1.25 [facility] CampusBUN/Creatinine [id number] 00:48:00* Test Item Value Reference Range Interpretation Comments BUN/Creatinine Ratio (test code = 3097-3) 18 6-25 [facility] CampusEstimat Glomerular Filtration Rate 2019-05-25 00:48:00* Test Item Value Reference Range Interpretation Comments Estimat Glomerular Filtration Rate (test code = 455344758) > 60 >60 Ranges were taken from the National Kidney Disease Education Program and the [facility] Kidney Foundation literature.Reference ranges:60 or greater: Rhhtqi54-39 ( for 3 consecutive months): Chronic kidney disease 15 or less: Kidney failureThe Hospitals of Providence Memorial CampusGlucose [id number] 00:48:00* Test Item Value Reference Range Interpretation Comments Glucose Level (test code = NBE5120) 104 74-118 [facility] CampusCalcium [id number] 00:48:00* Test Item Value Reference Range Interpretation Comments Calcium Level (test code = 84139-2) 9.4 8.4-10.2 [facility] CampusTotal [id number] 00:48:00* Test Item Value Reference Range Interpretation Comments Total Bilirubin (test code = 1975-2) 0.4 0.2-1.2 [facility] CampusAspartate Amino Transf (AST/SGOT) 2019-05-25 00:48:00* Test Item Value Reference Range Interpretation Comments Aspartate Amino Transf (AST/SGOT) (test code = Aspartate Amino Transf (AST/SGOT)) 24 5-34 [facility] CampusAlanine Aminotransferase (ALT/SGPT) 2019-05-25 00:48:00* Test Item Value Reference Range Interpretation Comments Alanine Aminotransferase (ALT/SGPT) (test code = 1742-6) 17 0-55 [facility] CampusTotal [id number] 00:48:00* Test Item Value Reference Range Interpretation Comments Total Protein (test code = 2885-2) 8.3 6.5-8.1 H [facility] CampusAlbumin2019-12-14 00:48:00* Test Item Value Reference Range Interpretation Comments Albumin (test code = 1751-7) 3.9 3.5-5.0 [facility] CampusGlobulin2019-12-14 00:48:00* Test Item Value Reference Range Interpretation Comments Globulin (test code = 44649-2) 4.4 2.3-3.5 H [facility] CampusAlbumin/Globulin [id number] 00:48:00 * Test Item Value Reference Range Interpretation Comments Albumin/Globulin Ratio (test code = 1759-0) 0.9 0.8-2.0 [facility] CampusAlkaline Exxhthxihqn9916-59-17 00:48:00* Test Item Value Reference Range Interpretation Comments Alkaline Phosphatase (test code = 6768-6) 88 40-150 [facility] CampusCreatine Dwabyx5495-85-02 00:48:00* Test Item Value Reference Range Interpretation Comments Creatine Kinase (test code = 2157-6) 201 30-200 H [facility] CampusWhite Blood Bqhvn7337-48-12 00:22:00* Test Item Value Reference Range Interpretation Comments White Blood Count (test code = 6690-2) 7.24 4.8-10.8 [facility] CampusRed Blood Aojvp0010-80-75 00:22:00* Test Item Value Reference Range Interpretation Comments Red Blood Count (test code = 789-8) 4.88 4.3-5.7 [facility] CampusHemoglobin2019-12-14 00:22:00* Test Item Value Reference Range Interpretation Comments Hemoglobin (test code = 50065-7) 14.7 14.0-18.0 [facility] CampusHematocrit2019-12-14 00:22:00* Test Item Value Reference Range Interpretation Comments Hematocrit (test code = 4544-3) 41.7 38.2-49.6 [facility] CampusMean Corpuscular Cjiium4697-28-21 00:22:00* Test Item Value Reference Range Interpretation Comments Mean Corpuscular Volume (test code = 787-2) 85.5 81-99 [facility] CampusMean Corpuscular Iodeezigmn9871-29-19 00:22:00* Test Item Value Reference Range Interpretation Comments Mean Corpuscular Hemoglobin (test code = 785-6) 30.1 28-32 [facility] CampusMean Corpuscular Hemoglobin Concent 2019-05-25 00:22:00* Test Item Value Reference Range Interpretation Comments Mean Corpuscular Hemoglobin Concent (test code = 786-4) 35.3 31-35 H [facility] CampusRed Cell Distribution Vxdhy2707-43-02 00:22:00* Test Item Value Reference Range Interpretation Comments Red Cell Distribution Width (test code = 89630-3) 13.8 11.7 -14.4 [facility] CampusPlatelet Gocto9559-56-98 00:22:00* Test Item Value Reference Range Interpretation Comments Platelet Count (test code = 777-3) 233 140-360 [facility] CampusNeutrophils (%) (Auto)2019-05-25 00:22:00 * Test Item Value Reference Range Interpretation Comments Neutrophils (%) (Auto) (test code = 80150-5) 45.2 38.7-80.0 [facility] CampusLymphocytes (%) (Auto)2019-05-25 00:22:00 * Test Item Value Reference Range Interpretation Comments Lymphocytes (%) (Auto) (test code = 736-9) 37.6 18.0-39.1 [facility] CampusMonocytes (%) (Auto)2019-05-25 00:22:00* Test Item Value Reference Range Interpretation Comments Monocytes (%) (Auto) (test code = 5905-5) 12.0 4.4-11.3 H [facility] CampusEosinophils (%) (Auto)2019-05-25 00:22:00 * Test Item Value Reference Range Interpretation Comments Eosinophils (%) (Auto) (test code = 713-8) 4.4 0.0-6.0 [facility] CampusBasophils (%) (Auto)2019-05-25 00:22:00* Test Item Value Reference Range Interpretation Comments Basophils (%) (Auto) (test code = 706-2) 0.4 0.0-1.0 [facility] CampusIM GRANULOCYTES %2019-05-25 00:22:00* Test Item Value Reference Range Interpretation Comments IM GRANULOCYTES % (test code = IM GRANULOCYTES %) 0.4 0.0- 1.0 [facility] CampusNeutrophils # (Auto)2019-05-25 00:22:00* Test Item Value Reference Range Interpretation Comments Neutrophils # (Auto) (test code = 751-8) 3.3 2.1-6.9 [facility] CampusLymphocytes # (Auto)2019-05-25 00:22:00* Test Item Value Reference Range Interpretation Comments Lymphocytes # (Auto) (test code = 36483-3) 2.7 1.0-3.2 [facility] CampusMonocytes # (Auto)2019-05-25 00:22:00* Test Item Value Reference Range Interpretation Comments Monocytes # (Auto) (test code = 742-7) 0.9 0.2-0.8 H [facility] CampusEosinophils # (Auto)2019-05-25 00:22:00* Test Item Value Reference Range Interpretation Comments Eosinophils # (Auto) (test code = 711-2) 0.3 0.0-0.4 [facility] CampusBasophils # (Auto)2019-05-25 00:22:00* Test Item Value Reference Range Interpretation Comments Basophils # (Auto) (test code = 704-7) 0.0 0.0-0.1 [facility] CampusAbsolute Immature Granulocyte (auto 2019-05-25 00:22:00* Test Item Value Reference Range Interpretation Comments Absolute Immature Granulocyte (auto (digna t code = Absolute Immature Granulocyte (auto) 0.03 0-0.1 [facility] CampusCXR 2 VIEW - FPXA2303-06-12 15:24:00 [facility] [address] [place] [address] Patient Name: SOPHIE DUNNE MR #: [id number] : 1945 Age/Sex: 73/M Req #: [id number] Adm Physician: Ordered by: JONG CANTOR MD Report #: [id number] Location: [facility] Room/Bed: Procedure: [id number] HOPD /CXR 2 VIEW - HOPD Exam Date: 05/19/19 Exam Time: 15 10 REPORT STATUS: Signed EXAMINA TION: CXR 2 VIEW - HOPD INDICATION: Shortness of breath, cough 201 [id number] COMPARISON: None FINDINGS: PA and lateral [...] CANTOR MD CT ANGIO CHEST-HOPD 2018-06-23 16:34:00 [place] [address] Patient Name: SOPHIE DUNNE MR #: [id number] : 1945 Age/Sex: 73/M Req #: [id number] [facility] Physician: Ordered by: FLAKITA DONOHUE MD Report #: [id number] Location: [facility] Room/Bed: Procedure: [id number] HO PD/CT ANGIO CHEST-HOPD Exam Date: 06/23/18 [...] Level (test code = 2951-2) 139 136-145 [facility] CampusPotassium Qleex5143-39-56 06:40:00* Test Item Value Reference Range Interpretation Comments Potassium Level (test code = 2823-3) 3.7 3.5-5.1 [facility] CampusChloride Ahqxm6402-75-60 06:40:00* Test Item Value Reference Range Interpretation Comments Chloride Level (test code = 2075-0) 107 98-107 [facility] CampusCarbon Dioxide Mbftf9754-37-63 06:40:00* Test Item Value Reference Range Interpretation Comments Carbon Dioxide Level (test code = 8-9) 23 22-29 [facility] CampusAnion Bdr0034-91-74 06:40:00* Test Item Value Reference Range Interpretation Comments Anion Gap (test code = 71720-7) 12.7 8-16 [facility] CampusBlood Urea Lxolhibg5110-01-30 06:40:00* Test Item Value Reference Range Interpretation Comments Blood Urea Nitrogen (test code = 3094-0) 15 7-26 [facility] CampusCreatinine2018-10-01 06:40:00* Test Item Value Reference Range Interpretation Comments Creatinine (test code = 2160-0) 0.76 0.72-1.25 [facility] CampusBUN/Creatinine Ycwbn5940-75-68 06:40:00* Test Item Value Reference Range Interpretation Comments BUN/Creatinine Ratio (test code = 3097-3) 20 6-25 [facility] CampusEstimat Glomerular Filtration Rate 2018-03-12 06:40:00* Test Item Value Reference Range Interpretation Comments Estimat Glomerular Filtration Rate (test code = 055467012) 60- >60 Ranges were taken from the National Kidney Disease Education Program and the [facility] Kidney Foundation literature.Reference ranges:60 or greater: Tvxxkz75-45 ( for 3 consecutive months): Chronic kidney disease 15 or less: Kidney failureThe Hospitals of Providence Memorial CampusGlucose Nzvev5715-21-27 06:40:00* Test Item Value Reference Range Interpretation Comments Glucose Level (test code = VJV3992) 107 74-118 [facility] CampusCalcium Xyqkv2898-18-97 06:40:00* Test Item Value Reference Range Interpretation Comments Calcium Level (test code = 26650-1) 8.5 8.4-10.2 [facility]odium Nfhzf0177-13-77 06:40:00* Test Item Value Reference Range Interpretation Comments Sodium Level (test code = 2951-2) 139 136-145 [facility] CampusPotassium Hejty6607-26-14 06:40:00* Test Item Value Reference Range Interpretation Comments Potassium Level (test code = 2823-3) 3.7 3.5-5.1 [facility] CampusChloride Xsdoh6671-96-21 06:40:00* Test Item Value Reference Range Interpretation Comments Chloride Level (test code = 2075-0) 107 98-107 [facility] CampusCarbon Dioxide Nngtb8828-38-83 06:40:00* Test Item Value Reference Range Interpretation Comments Carbon Dioxide Level (test code = 2028-9) 23 22-29 [facility] CampusAnion Tot2633-10-61 06:40:00* Test Item Value Reference Range Interpretation Comments Anion Gap (test code = 08648-4) 12.7 8-16 [facility] CampusBlood Urea Dsvmnuqq5025-55-20 06:40:00* Test Item Value Reference Range Interpretation Comments Blood Urea Nitrogen (test code = 3094-0) 15 7-26 [facility] CampusCreatinine2018-10-01 06:40:00* Test Item Value Reference Range Interpretation Comments Creatinine (test code = 2160-0) 0.76 0.72-1.25 [facility] CampusBUN/Creatinine Fwfpo5734-10-65 06:40:00* Test Item Value Reference Range Interpretation Comments BUN/Creatinine Ratio (test code = 3097-3) 20 6-25 [facility] CampusEstimat Glomerular Filtration Rate 2018-03-12 06:40:00* Test Item Value Reference Range Interpretation Comments Estimat Glomerular Filtration Rate (test code = 551982348) > 60 >60 Ranges were taken from the National Kidney Disease Education Program and the [facility] Kidney Foundation literature.Reference ranges:60 or greater: Rmftql66-11 ( for 3 consecutive months): Chronic kidney disease 15 or less: Kidney failureThe Hospitals of Providence Memorial CampusGlucose Ragbd8013-27-53 06:40:00* Test Item Value Reference Range Interpretation Comments Glucose Level (test code = XDB1109) 107 74-118 [facility] CampusCalcium Pxnyq9778-28-35 06:40:00* Test Item Value Reference Range Interpretation Comments Calcium Level (test code = 78514-6) 8.5 8.4-10.2 [facility] CampusWhite Blood Aoypi4117-63-23 06:27:00* Test Item Value Reference Range Interpretation Comments White Blood Count (test code = 6690-2) 5.57 4.8-10.8 [facility] CampusRed Blood Emgee1047-58-32 06:27:00* Test Item Value Reference Range Interpretation Comments Red Blood Count (test code = 789-8) 4.26 4.3-5.7 L [facility] CampusHemoglobin2018-10-01 06:27:00* Test Item Value Reference Range Interpretation Comments Hemoglobin (test code = 99219-9) 12.9 14.0-18.0 L [facility] CampusHematocrit2018-10-01 06:27:00* Test Item Value Reference Range Interpretation Comments Hematocrit (test code = 4544-3) 36.8 38.2-49.6 L [facility] CampusMean Corpuscular Hmdmcp3221-62-11 06:27:00* Test Item Value Reference Range Interpretation Comments Mean Corpuscular Volume (test code = 787-2) 86.4 81-99 [facility] CampusMean Corpuscular Okejrtjbfm1300-75-55 06:27:00* Test Item Value Reference Range Interpretation Comments Mean Corpuscular Hemoglobin (test code = 785-6) 30.3 28-32 [facility] CampusMean Corpuscular Hemoglobin Concent 2018-03-12 06:27:00* Test Item Value Reference Range Interpretation Comments Mean Corpuscular Hemoglobin Concent (test code = 786-4) 35.1 31-35 H [facility] CampusRed Cell Distribution Vyxjs9414-79-13 06:27:00* Test Item Value Reference Range Interpretation Comments Red Cell Distribution Width (test code = 46143-9) 13.3 11.7 -14.4 [facility] CampusPlatelet Lbjkp2552-86-54 06:27:00* Test Item Value Reference Range Interpretation Comments Platelet Count (test code = 777-3) 224 140-360 [facility] CampusNeutrophils (%) (Auto)2018-03-12 06:27:00 * Test Item Value Reference Range Interpretation Comments Neutrophils (%) (Auto) (test code = 20090-6) 52.0 38.7-80.0 [facility] CampusLymphocytes (%) (Auto)2018-03-12 06:27:00 * Test Item Value Reference Range Interpretation Comments Lymphocytes (%) (Auto) (test code = 736-9) 28.4 18.0-39.1 [facility] CampusMonocytes (%) (Auto)2018-03-12 06:27:00* Test Item Value Reference Range Interpretation Comments Monocytes (%) (Auto) (test code = 5905-5) 11.5 4.4-11.3 H [facility] CampusEosinophils (%) (Auto)2018-03-12 06:27:00 * Test Item Value Reference Range Interpretation Comments Eosinophils (%) (Auto) (test code = 713-8) 6.8 0.0-6.0 H [facility] CampusBasophils (%) (Auto)2018-03-12 06:27:00* Test Item Value Reference Range Interpretation Comments Basophils (%) (Auto) (test code = 706-2) 1.1 0.0-1.0 H [facility] CampusIM GRANULOCYTES %2018-03-12 06:27:00* Test Item Value Reference Range Interpretation Comments IM GRANULOCYTES % (test code = IM GRANULOCYTES %) 0.2 0.0- 1.0 [facility] CampusNeutrophils # (Auto)2018-03-12 06:27:00* Test Item Value Reference Range Interpretation Comments Neutrophils # (Auto) (test code = 751-8) 2.9 2.1-6.9 [facility] CampusLymphocytes # (Auto)2018-03-12 06:27:00* Test Item Value Reference Range Interpretation Comments Lymphocytes # (Auto) (test code = 17116-2) 1.6 1.0-3.2 [facility] CampusMonocytes # (Auto)2018-03-12 06:27:00* Test Item Value Reference Range Interpretation Comments Monocytes # (Auto) (test code = 742-7) 0.6 0.2-0.8 [facility] CampusEosinophils # (Auto)2018-03-12 06:27:00* Test Item Value Reference Range Interpretation Comments Eosinophils # (Auto) (test code = 711-2) 0.4 0.0-0.4 [facility] CampusBasophils # (Auto)2018-03-12 06:27:00* Test Item Value Reference Range Interpretation Comments Basophils # (Auto) (test code = 704-7) 0.1 0.0-0.1 [facility] CampusAbsolute Immature Granulocyte (auto 2018-03-12 06:27:00* Test Item Value Reference Range Interpretation Comments Absolute Immature Granulocyte (auto (digna t code = Absolute Immature Granulocyte (auto) 0.01 0-0.1 [facility] CampusWhite Blood Cpzxp5221-42-96 06:27:00* Test Item Value Reference Range Interpretation Comments White Blood Count (test code = 6690-2) 5.57 4.8-10.8 [facility] CampusRed Blood Iamuk3705-10-95 06:27:00* Test Item Value Reference Range Interpretation Comments Red Blood Count (test code = 789-8) 4.26 4.3-5.7 L [facility] CampusHemoglobin2018-10-01 06:27:00* Test Item Value Reference Range Interpretation Comments Hemoglobin (test code = 20803-3) 12.9 14.0-18.0 L [facility] CampusHematocrit2018-10-01 06:27:00* Test Item Value Reference Range Interpretation Comments Hematocrit (test code = 4544-3) 36.8 38.2-49.6 L [facility] CampusMean Corpuscular Jpylde1065-88-39 06:27:00* Test Item Value Reference Range Interpretation Comments Mean Corpuscular Volume (test code = 787-2) 86.4 81-99 [facility] CampusMean Corpuscular Zwkeezmsmv1149-19-15 06:27:00* Test Item Value Reference Range Interpretation Comments Mean Corpuscular Hemoglobin (test code = 785-6) 30.3 28-32 [facility] CampusMean Corpuscular Hemoglobin Concent 2018-03-12 06:27:00* Test Item Value Reference Range Interpretation Comments Mean Corpuscular Hemoglobin Concent (test code = 786-4) 35.1 31-35 H [facility] CampusRed Cell Distribution Yahnz4369-32-75 06:27:00* Test Item Value Reference Range Interpretation Comments Red Cell Distribution Width (test code = 40893-3) 13.3 11.7 -14.4 [facility] CampusPlatelet Qhwbw2744-83-89 06:27:00* Test Item Value Reference Range Interpretation Comments Platelet Count (test code = 777-3) 224 140-360 [facility] CampusNeutrophils (%) (Auto)2018-03-12 06:27:00 * Test Item Value Reference Range Interpretation Comments Neutrophils (%) (Auto) (test code = 20726-9) 52.0 38.7-80.0 [facility] CampusLymphocytes (%) (Auto)2018-03-12 06:27:00 * Test Item Value Reference Range Interpretation Comments Lymphocytes (%) (Auto) (test code = 736-9) 28.4 18.0-39.1 [facility] CampusMonocytes (%) (Auto)2018-03-12 06:27:00* Test Item Value Reference Range Interpretation Comments Monocytes (%) (Auto) (test code = 5905-5) 11.5 4.4-11.3 H [facility] CampusEosinophils (%) (Auto)2018-03-12 06:27:00 * Test Item Value Reference Range Interpretation Comments Eosinophils (%) (Auto) (test code = 713-8) 6.8 0.0-6.0 H [facility] CampusBasophils (%) (Auto)2018-03-12 06:27:00* Test Item Value Reference Range Interpretation Comments Basophils (%) (Auto) (test code = 706-2) 1.1 0.0-1.0 H [facility] CampusIM GRANULOCYTES %2018-03-12 06:27:00* Test Item Value Reference Range Interpretation Comments IM GRANULOCYTES % (test code = IM GRANULOCYTES %) 0.2 0.0- 1.0 [facility] CampusNeutrophils # (Auto)2018-03-12 06:27:00* Test Item Value Reference Range Interpretation Comments Neutrophils # (Auto) (test code = 751-8) 2.9 2.1-6.9 [facility] CampusLymphocytes # (Auto)2018-03-12 06:27:00* Test Item Value Reference Range Interpretation Comments Lymphocytes # (Auto) (test code = 50968-1) 1.6 1.0-3.2 [facility] CampusMonocytes # (Auto)2018-03-12 06:27:00* Test Item Value Reference Range Interpretation Comments Monocytes # (Auto) (test code = 742-7) 0.6 0.2-0.8 [facility] CampusEosinophils # (Auto)2018-03-12 06:27:00* Test Item Value Reference Range Interpretation Comments Eosinophils # (Auto) (test code = 711-2) 0.4 0.0-0.4 [facility] CampusBasophils # (Auto)2018-03-12 06:27:00* Test Item Value Reference Range Interpretation Comments Basophils # (Auto) (test code = 704-7) 0.1 0.0-0.1 [facility] CampusAbsolute Immature Granulocyte (auto 2018-03-12 06:27:00* Test Item Value Reference Range Interpretation Comments Absolute Immature Granulocyte (auto (digna t code = Absolute Immature Granulocyte (auto) 0.01 0-0.1 [facility] CampusMagnesium Gjiuh8105-63-30 15:44:00* Test Item Value Reference Range Interpretation Comments Magnesium Level (test code = 65827-0) 1.8 1.3-2.1 [facility] CampusMas[facility] Kzsjf5958-77-32 15:44:00* Test Item Value Reference Range Interpretation Comments Magnesium Level (test code = 40788-2) 1.8 1.3-2.1 [facility] CampusProthrombin Pyre8980-52-04 15:33:00* Test Item Value Reference Range Interpretation Comments Prothrombin Time (test code = 5902-2) 12.6 11.9-14.5 [facility] CampusProthromb Time International Ratio 2018-03-11 15:33:00* Test Item Value Reference Range Interpretation Comments Prothromb Time International Ratio (test code = 6301-6) 0.87 Oral Anticoagulant Therapy INR Values:1. Low Intensity Therapy 1.5 - 2.02 . Moderate Intensity Therapy 2.0 - 3.03. High Intensity Therapy(1) 2.5 - 3. 54. High Intensity Therapy(2) 3.0 - 4.05. Panic Value INR > 5.0 [facility] CampusProthrombin Sbsd1788-09-69 15:33:00* Test Item Value Reference Range Interpretation Comments Prothrombin Time (test code = 5902-2) 12.6 11.9-14.5 [facility] CampusProthromb Time International Ratio 2018-03-11 15:33:00* Test Item Value Reference Range Interpretation Comments Prothromb Time International Ratio (test code = 6301-6) 0.87 Oral Anticoagulant Therapy INR Values:1. Low Intensity Therapy 1.5 - 2.02 . Moderate Intensity Therapy 2.0 - 3.03. High Intensity Therapy(1) 2.5 - 3. 54. High Intensity Therapy(2) 3.0 - 4.05. Panic Value INR > 5.0 [facility] CampusTriglycerides Lubjq1103-78-85 05:16:00* Test Item Value Reference Range Interpretation Comments Triglycerides Level (test code = 2571-8) 70 0-149 [facility] CampusCholesterol Cbqpz1409-46-57 05:16:00* Test Item Value Reference Range Interpretation Comments Cholesterol Level (test code = 2093-3) 135 0-199 Less than 200 mg/dL Low Npxp403 - 239 mg/dL Borderline Awat086 m g/dl and greater High Risk [facility] CampusLDL Jtfvjbmoxpk5874-92-39 05:16:00* Test Item Value Reference Range Interpretation Comments LDL Cholesterol (test code = 2089-1) 80 60-130 [facility] CampusHDL Nbyhxkdnvuo8398-30-16 05:16:00* Test Item Value Reference Range Interpretation Comments HDL Cholesterol (test code = 2085-9) 41 40-60 [facility] CampusCholesterol/HDL Vllrr7128-26-15 05:16:00 * Test Item Value Reference Range Interpretation Comments Cholesterol/HDL Ratio (test code = 9830-1) 3.3 3.9-4.7 L [facility] CampusTriglycerides Snxgv8014-56-85 05:16:00* Test Item Value Reference Range Interpretation Comments Triglycerides Level (test code = 2571-8) 70 0-149 [facility] CampusCholesterol Wkleq5318-07-81 05:16:00* Test Item Value Reference Range Interpretation Comments Cholesterol Level (test code = 2093-3) 135 0-199 Less than 200 mg/dL Low Ikuq542 - 239 mg/dL Borderline Tksh304 m g/dl and greater High Risk [facility] CampusLDL Rkcbatuigvu0428-27-34 05:16:00* Test Item Value Reference Range Interpretation Comments LDL Cholesterol (test code = 2089-1) 80 60-130 [facility] CampusHDL Wfyfdksqrrg9509-55-12 05:16:00* Test Item Value Reference Range Interpretation Comments HDL Cholesterol (test code = 2085-9) 41 40-60 [facility] CampusCholesterol/HDL Gawrn4863-29-65 05:16:00 * Test Item Value Reference Range Interpretation Comments Cholesterol/HDL Ratio (test code = 9830-1) 3.3 3.9-4.7 L [facility] CampusCreatine Kinase SP2658-57-12 00:27:00* Test Item Value Reference Range Interpretation Comments Creatine Kinase MB (test code = 75497-8) 1.60 0-5.0 [facility] CampusTroponin E5950-82-75 00:27:00* Test Item Value Reference Range Interpretation Comments Troponin I (test code = XSH2255) 0.008 0-0.300 [facility] CampusCreatine Kinase BF6376-94-28 00:27:00* Test Item Value Reference Range Interpretation Comments Creatine Kinase MB (test code = 60350-6) 1.60 0-5.0 [facility] CampusTrjellico medical centernin T9821-42-08 00:27:00* Test Item Value Reference Range Interpretation Comments Troponin I (test code = JZJ3181) 0.008 0-0.300 [facility] CampusCreatine Rescdo2198-56-46 00:22:00* Test Item Value Reference Range Interpretation Comments Creatine Kinase (test code = 2157-6) 98 30-200 [facility] CampusCreatine Pkpudb5968-55-38 00:22:00* Test Item Value Reference Range Interpretation Comments Creatine Kinase (test code = 2157-6) 98 30-200 [facility] CampusHemoglobin A1c Lsscmof6980-46-13 13:20:00 * Test Item Value Reference Range Interpretation Comments Hemoglobin A1c Percent (test code = Hemoglobin A1c Percent) 5.2 4.0-7.0 [facility] CampusHemoglobin A1c Melmxhb1172-81-49 13:20:00 * Test Item Value Reference Range Interpretation Comments Hemoglobin A1c Percent (test code = Hemoglobin A1c Percent) 5.2 4.0-7.0 [facility] CampusActivated Partial Thromboplast Time 2018-03-09 01:17:00* Test Item Value Reference Range Interpretation Comments Activated Partial Thromboplast Time (test code = 94543-3) 29.5 23.8-35.5 [facility] CampusActivated Partial Thromboplast Time 2018-03-09 01:17:00* Test Item Value Reference Range Interpretation Comments Activated Partial Thromboplast Time (test code = 29202-1) 29.5 23.8-35.5 [facility] [facility] [id number] 01:13:00 [place] [address] Patient Name: SOPHIE DUNNE MR #: [id number] : 1945 Age/Sex: 72/M Req #: [id number] Adm Physician: Ordered by: XIOMARA HOFFMAN MD Report #: [id number] Location: [facility]/Bed: Procedure: [id number] HOPD/CXR 1 VEW - HOPD Exam Date: 03/09/18 Exam Time: 0010 REPORT STAT US: Signed Exam: AP view [...] JOSE R HOFFMAN MD CT CHEST WITH KFQJYKMW-[id number] 00:39:00 [place] [address] Patient Name: SOPHIE DUNNE MR #: [id number] : 1945 Age/Sex: 72/M Req #: [id number] Adm Physician: Ordered by: XIOMARA HOFFMAN MD Report #: [id number] Location: [facility]/Bed: Procedure: HOPD/CT CHEST WITH CONT RAST-HOPD Exam Date: 03/09/18 Exam Time: 0010 REPORT STATUS: Signed EXAM: CTA of the [...] 03/09/1849 COPY TO: XIOMARA HOFFMAN MD TISSUE [id number] 17:13:00Surgical Pathology Report Case: [id number] Authorizing Provider: Marino Grant, Collected: 07/18/2016 1646 Ordering Location: [address] Received: 07/19/2016 0858 Service Pathologist: Tyler Iyer MD Specimen: Explant, LEFT KNEE POLY - HARDWARE LEFT KNEE POLY HARDWARE, REMOVAL: - HARDWARE IDENTIFIED (GROSS DIAGNOSIS ONLY)SD/CG/pl Signing Pathologist Direct Phone Line: [phone] signed by Tyler Iyer MD on 11/22/2016 at 5:13 [id number] abscessLeft knee poly hardwareThe specimen is received in a fluidless container labeled with patient information and labeled "left knee poly hardware" and consists of tibial condyles, off white orthopedic hardware measuring 7.5 x 4 x 0.7 cm. Writing on the hardware is: [id number]. The specimen is submitted for gross identification only. CG/plTISSUE [id number] 11:26:00Surgical Pathology Report Case: [id number] Authorizing Provider: Heriberto Zee MD Collected: 11/11/2016 1457 Ordering Location: [facility] Received: 11/14/2016 0910 SERVICES Pathologist: Familia [...] bacilli, fungi and bacterial organisms are negative .50693; [id number] of lumbar, flat back sydnromeLumbar epidural phlegmonRe ceived fresh labeled "soft tissue, other", description "lumbar epidural phlegmon " is a 1.5 x 0.7 x 0.5 cm pink-mukherjee to kline-white irregular rubbery fragment of s oft and osseous tissue. The specimen is bisected and entirely submitted in casse tte A1 for decalcification. DB/plPerformedTISSUE [id number] 13:22:00Surgical Pathology Report Case: [id number] Authorizing Provider: Heriberto Zee MD Collected: 11/10/2016 1052 Ordering Location: [facility] Received: 11/10/2016 1105 SERVICES Pathologist: Familia Cortez MD Specimen: Disc L4-5 VERTEBRAL COLUMN, INTERVERTEBRAL DISC, L4-5, DISCECT DANNY:FIBROCARTILAGINOUS DEGENERATIONSMALL FRAGMENTS OF BONE 05298; 37130Zjihqsmbt of lumbar sp ine, unspecified scoliosis type, flat back syndromeDisc L4-5Specimen is received in saline labeled with the patient's information and labeled "disc L4-5" consis ts of multiple fragments of mukherjee-pink fibrocartilaginous tissue measuring 2.0 x 1 .0 x 0.5 cm in aggregate, submitted entirely in A1 for decalcification. CG/ewPer formedCBC W/PLT COUNT & AUTO KTPJMTJXIVFL1769-37-97 05:13:00* Test Item Value Reference Range Interpretation [...] 417) 0.02 K/ L 0. 00-0.20 0.00PROTHROMBIN TIME/[id number] 05:01:00* Test Item Value Reference Range Interpretation [...] mechanical heart valves.CBC W/PLT COUNT & AUTO NYQUQZZGJBIT9586-61-91 07:57:00* Test Item Value Reference Range Interpretation [...] 0.03 K/ L 0. 00-0.20 0.00BASI METABOLIC [id number] 07:08:00* Test Item Value Reference Range Interpretation [...] IS NOT APPLICABLE FOR DIALYSIS PATIENTS. CALCIUM, [id number] 15:38:00* Test Item Value Reference Range Interpretation Comments CALCIUM IONIZED (BEAKER) (test code = 698) 1.08 mmol/L 1.12-1.27 L PH, BLOOD (BEAKER) (test code = 1810) 7.33 BLOOD GAS, [id number] 15:37:00* Test Item Value Reference Range Interpretation [...] (test code = 1818) 37.0 C GLUCOSE-STAT [id number] 15:37:00* Test Item Value Reference Range Interpretation Comments GLUCOSE RANDOM (BEAKER) (test code = 652) 142 mg/dL 70-110 H HGB/HCT (H&H) - STAT [id number] 15:37:00* Test Item Value Reference Range Interpretation Comments HEMOGLOBIN (BEAKER) (test code = 410) 11.0 g/dL 13.0-16.8 L HEMATOCRIT (BEAKER) (test code = 411) 32.0 % 40.0-50.0 L SODIUM NA-STAT [id number] 15:36:00* Test Item Value Reference Range Interpretation Comments SODIUM (BEAKER) (test code = 381) 137 meq/L 135-148 POTASSIUM-STAT [id number] 15:36:00* Test Item Value Reference Range Interpretation Comments POTASSIUM (BEAKER) (test code = 379) 4.3 meq/L 3.6-5.5 CALCIUM, [id number] 13:34:00* Test Item Value Reference Range Interpretation Comments CALCIUM IONIZED (BEAKER) (test code = 698) 0.98 mmol/L 1.12-1.27 L PH, BLOOD (BEAKER) (test code = 1810) 7.36 BLOOD GAS, [id number] 13:33:00* Test Item Value Reference Range Interpretation [...] (test code = 1819) 100.0 % GLUCOSE-STAT [id number] 13:33:00* Test Item Value Reference Range Interpretation Comments GLUCOSE RANDOM (BEAKER) (test code = 652) 140 mg/dL 70-110 H HGB/HCT (H&H) - STAT [id number] 13:33:00* Test Item Value Reference Range Interpretation Comments HEMOGLOBIN (BEAKER) (test code = 410) 10.8 g/dL 13.0-16.8 L HEMATOCRIT (BEAKER) (test code = 411) 32.0 % 40.0-50.0 L SODIUM NA-STAT [id number] 13:32:00* Test Item Value Reference Range Interpretation Comments SODIUM (BEAKER) (test code = 381) 138 meq/L 135-148 POTASSIUM-STAT [id number] 13:32:00* Test Item Value Reference Range Interpretation [...] 0 /100 WBC 0 -0 0.00BASIC METABOLIC [id number] 05:54:00* Test Item Value Reference Range Interpretation [...] GFR IS NOT APPLICABLE FOR DIALYSIS PATIENTS. PT/[id number] 07:10:00* Test Item Value Reference Range Interpretation [...] mechanical heart valves.BODY FLUID CULTURE + GRAM [id number] 09:13:00* Test Item Value Reference Range Interpretation Comments CULTURE (BEAKER) (test code = 1095) No growth GRAM STAIN RESULT (BEAKER) (test code = 1123) 1+ WBCs GRAM STAIN RESULT (BEAKER) (test code = 33608) No organisms seen PROTHROMBIN TIME/[id number] 05:10:00* Test Item Value Reference Range Interpretation [...] A RBC FLUID (BEAKER) (test code = 628) 1142258 /cu mm <=1 H ADJUSTED WBC FLUID [...] EDTA Tube BODY FLUID CULTURE + GRAM [id number] 09:47:00* Test Item Value Reference Range Interpretation Comments CULTURE (BEAKER) (test code = 1095) No growth GRAM STAIN RESULT (BEAKER) (test code = 1123) <1+ WBCs GRAM STAIN RESULT (BEAKER) (test code = 86682) No organisms seen BASIC METABOLIC [id number] 06:10:00* Test Item Value Reference Range Interpretation [...] DIALYSIS PATIENTS. CBC W/PLT COUNT & AUTO [id number] 05:12:00* Test Item Value Reference Range Interpretation [...] 417) 0.08 K/ L 0. 00-0.20 0.00BLOOD [id number] 10:00:00* Test Item Value Reference Range Interpretation Comments CULTURE (BEAKER) (test code = 1095) No growth in 5 days BLOOD [id number] 10:00:00* Test Item Value Reference Range Interpretation Comments CULTURE (BEAKER) (test code = 1095) No growth in 5 days BASIC METABOLIC [id number] 07:43:00* Test Item Value Reference Range Interpretation [...] DIALYSIS PATIENTS. CBC W/PLT COUNT & AUTO [id number] 07:41:00* Test Item Value Reference Range Interpretation [...] 0. 00-0.20 0.00CBC W/PLT COUNT & AUTO GUVNKGSIYSQX6094-89-23 05:40:00* Test Item Value Reference Range Interpretation [...] 0.05 K/ L 0. 00-0.20 0.00BASIC METABOLIC [id number] 05:15:00* Test Item Value Reference Range Interpretation [...] IS NOT APPLICABLE FOR DIALYSIS PATIENTS. SEDIMENTATION [id number] 14:35:00* Test Item Value Reference Range Interpretation Comments SEDIMENTATION RATE, ERYTHROCYTE (BEAKER) (test code = 766) 86 mm/HR 0-40 H C-REACTIVE [id number] 12:57:00* Test Item Value Reference Range Interpretation Comments C-REACTIVE PROTEIN (BEAKER) (test code = 676) 6.42 mg/dL 0.00-0.5 0 H URINE AND HWKSA2225-07-31 [facility] TLHPE1445[facility]-03 15:43:00Clear (07/15/16 9:43 AM)[facility] [id number] 15:43:00 Yellow *NA*(07/15/16 9:43 AM)[facility] [id number] 15:43:005.0 [facility] [id number] 15:43:00Negative *NA*(07/15/16 9:43 AM) [facility] [id number] 15:43:00Negative (07/15/16 9:43 AM) [facility] QYQJD6468-18-70 15:43:006[facility] [id number] 15:43:00Negative (07/15/16 9:43 AM)[facility] STOOL 2016-07-15 15:43:003[facility] [id number] 15:43:00Negative (07/15/16 9:43 AM)[facility] BPDEW6218-11-33 15:43:001[facility]annCHEM [id number] 07:43:001.8[facility] XmcnfotMHLEXBMBXUTB3830-92-62 07:43:0016.9[facility] QqcufibCMKAVCQCZNPN5430-14-00 07:43:0027[facility] [place] YYKKCDOMELOK2835-17-23 07:43:004.1[facility] ZaynivePKHYOUDQJXQK0907-97-05 07:43:000.9[facility] XzrnacoAYFNVCMGFJQW3034-52-94 07:43:003.9[facility] [place] BYQVQRSULYER8646-36-86 07:43:08224Bwybafzj AscpwisDASNLCZBWUXL9179-80-59 07:43:008.1[facility] RunvwwoIGZSUPUFZBQZ7667-48-28 07:43:0022[facility] SHYCYJBONNSY6874-25-07 07:43:67929Zmkbywhv VgqhijzLBRFVHAEFMZH8053-17-94 07:43:97000Jxaygyka VfezihdKVYTELZBMJJW4681-54-50 07:43:001.00[facility] [place] [place] YKUDHFONXBBU4228-45-73 07:43:0027[facility] MzjkrfgOXQTQQVPPBCJ7366-00-93 07:43:00 3.6[facility] CkzdiweMDAVDJSGELBL1912-41-72 07:43:007.7[facility] ISGIXMJJGKOZ5613-65-97 07:43:000.5[facility] CzqikfvLOHLSXKPITMR2238-59-95 07:43:0095[facility] EbhkpneZFZFIXZLQAXQ5287-76-49 07:43:0022[facility] [place] JVIISPGJGKKM5613-47-28 07:43:0031[facility] HcawderHNMRUKCLNTAP7152-30-72 07:43:00 76[facility] WhocbsnCIGTRJTUQJ2980-13-91 07:43:0021[facility]annHEMATOLOGY 2016-07-15 07:43:00* Test Item Value Reference Range Interpretation Comments MCH (test code = MCH) 30.1 pg 27.0-31.0 [facility] ZzqmrggPISIPWRUVF4373-31-80 07:43:0087.2[facility]OLOGY 2016-07-15 07:43:0034.5[facility] BmwicraGMTRXHSOLY8908-16-82 07:43:0014.1[facility] ZfdvuuwNVJAWPMKLY2474-53-04 07:43:0038.3[facility] XsejozhLXCCQSHHOB0103-23-86 07:43:0010.8[facility] WcjljloQMFCAJTZYP3670-95-53 07:43:25448Nwokiofo [facility]iram ECVTNQGTII6307-12-74 07:43:0017.0[facility] DrsqkzfHALSRGLHID0758-91-72 07:43:00 13.2[facility] KlsnkcpHFFCTSUPDU9731-27-99 07:43:004.39[facility] 2016-07-15 07:43:001.07[facility] HdnzwfgYIAICUXONE0742-29-31 07:43:00* Test Item Value Reference Range Interpretation Comments PT (test code = PT) 14.1 s 12.0-14.7 [facility] RjsymrhCAELKOHCXS2172-50-44 07:43:00* Test Item Value Reference Range Interpretation Comments PTT (test code = PTT) 28.4 s 22.9-35.8 [facility] PhcvmwlASCPSVMRZK7317-55-89 07:43:000.1[facility] 2016-07-15 07:43:0014.0[facility] OfrscaiAYKSFRHCLH3041-47-09 07:43:000.6[facility] GwpqfrcJVVQMXGJUA9824-09-53 07:43:001.5[facility] BigtlwnDWIBKTDODD8575-21-22 07:43:001.4[facility] EqvzxizNAZCGATBXX9282-67-52 07:43:008.9[facility] SXBFLUCAKX3662-38-37 07:43:008.0[facility] QnemqkrYGCGKTCYAE5295-36-42 07:43:00 82.5[facility] MkovvzwSMHHXVTOKD2778-83-51 07:43:0054.6[facility]
[2019-11-21] MEDS ORDERED: NITROGLYCERIN 0.4 MG SUBL SL PRN (23:00)
[2019-11-21] MEDS ORDERED: ONDANSETRON HCL INJ 2MG/ML 2ML 2 MG/ML VIAL IV PRN (23:00)
--- NOTE | 2019-11-21 23:07 | Diagnostic Imaging Report ---
EXAMINATION: CHEST SINGLE (PORTABLE) INDICATION: ^CHEST PAIN ^[id number] ^2206 ^Y COMPARISON: 05/19/2019 FINDINGS: AP view TUBES and LINES: None. LUNGS: Lungs are well inflated. There is no evidence of pneumonia or pulmonary edema. PLEURA: No pleural effusion or pneumothorax. HEART AND MEDIASTINUM: The cardiomediastinal silhouette is enlarged. BONES AND SOFT TISSUES: No acute osseous lesion. Soft tissues are unremarkable. UPPER ABDOMEN: No free air under the diaphragm. IMPRESSION: No acute thoracic abnormality. No change from prior exam. Signed by: Dr. Guy Ramsey MD on 11/21/2019 11:03 PM
[2019-11-22] VITALS (11 sets, daily range): BP systolic 109–208; BP diastolic 57–84
--- NOTE | 2019-11-22 | NUR ---
{null, COVID-19 SWAB OBTAINED AT THIS TIME. NAD NOTED. PT TOLERATED WELL. }
--- NOTE | 2019-11-22 00:10 | NUR ---
{null, RECEIVED REPORT FROM [facility] NURSE. PATIENT ARRIVED VIA STRETCHER TO THE UNIT. CALL LIGHT WITHIN REACH. PATIENT IS A&OX3. }
[2019-11-22] MEDS: FAMOTIDINE 20 MG/2 ML VIAL IV SCH ×2 (00:11→11:29)
[2019-11-22] MEDS ORDERED: CEPHALEXIN500 MG PO (01:12)
[2019-11-22] MEDS ORDERED: ATENOLOL50 MG PO (01:12)
[2019-11-22] MEDS ORDERED: SPIRONOLACTONE25 MG PO (01:12)
[2019-11-22] MEDS ORDERED: FLUTICASONE P15.8 ML (01:12)
[2019-11-22] MEDS ORDERED: SENNA8.6 MG (01:12)
[2019-11-22] MEDS ORDERED: BACLOFEN10 MG PO (01:12)
[2019-11-22] MEDS ORDERED: LISINOPRIL-HCT1 EACH (01:12)
[2019-11-22] MEDS ORDERED: XARELTO2.5 MG PO (01:12)
[2019-11-22] MEDS ORDERED: GABAPENTIN400 MG PO (01:12)
[2019-11-22] MEDS ORDERED: CLONIDINE HCL0.1 MG PO (01:12)
[2019-11-22] MEDS ORDERED: ALLERGY RELIEF10 M4 (01:12)
[2019-11-22] MEDS ORDERED: SIMVASTATIN10 MG PO (01:12)
[2019-11-22] MEDS ORDERED: MULTIVITAMINS1 EAC6 (01:12)
[2019-11-22] MEDS ORDERED: DOCUSATE SODIU100 MG PO (01:12)
[2019-11-22] MEDS ORDERED: MONTELUKAST SOD10 MG PO (01:12)
[2019-11-22] MEDS ORDERED: HYDRALAZINE HCL 20 MG/ML VIAL IV PRN (01:15)
--- NOTE | 2019-11-22 01:17 | NUR ---
{null, RECEIVED VITAL SIGNS AND PATIENT'S BP WAS 208/84. CALLED AND TALKED TO DR. MATA ABOUT THE HIGH BLOOD PRESSURE. DR. MATA ORDERED IV HYDRALAZINE 10 MG Q3H FOR SYSTOLIC BP OVER 170 }
[2019-11-22 06:28] LABS: CHOL/HDL RATIO 4.3 (3.9-4.7)
--- NOTE | 2019-11-22 07:00 | NUR ---
{null, Report received by Nette MELTON and I assumed care of the patient. The patient was asked if she needed anything at this time and her response was ,"No". }
[2019-11-22 07:02] LABS: CREATINE KINASE MB 7.1 ng/mL (0-5.0)
--- NOTE | 2019-11-22 07:13 | NUR ---
{null, GAVE BEDSIDE SHIFT REPORT TO ONCOMING NURSE. CALL LIGHT WITHIN REACH. PATIENT IN BED. }
[2019-11-22] MEDS ORDERED: CLONIDINE HCL 0.1 MG TAB PO PRN (08:00)
[2019-11-22] MEDS: DOCUSATE SODIUM 100 MG CAP PO SCH ×2 (08:51→17:02)
[2019-11-22] MEDS ORDERED: CHOLECALCIFEROL 1,000 UNIT TAB PO SCH (09:00)
[2019-11-22] MEDS ORDERED: SPIRONOLACTONE 25 MG TAB PO SCH (09:00)
[2019-11-22] MEDS ORDERED: ATENOLOL 50 MG TAB PO SCH (09:00)
[2019-11-22] MEDS ORDERED: RIVAROXABAN 20 MG TABLET PO SCH (09:00)
[2019-11-22] MEDS ORDERED: ACETAMINOPHEN 325 MG TAB PO PRN (12:30)
--- NOTE | 2019-11-22 18:36 | NUR ---
{null, Patient was educated on discharge instructions and he repeated instructions back. The PIV was removed from Left AC with no problems. Patient aware of follow up needs and monitoring his blood pressure at home. Patient taken to car in wheelchair and drove him home. }
[2019-11-22] MEDS ORDERED: SIMVASTATIN 20 MG TAB PO SCH (21:00)
--- NOTE | 2019-11-23 03:56 | History and Physical ---
PRIMARY CARE DOCTOR: Dr. Baker at [facility] CHIEF COMPLAINT: Chest pain for the past two days on an off. HISTORY OF PRESENT ILLNESS: This is a 74-year-old male with past medical history of high blood pressure, rheumatoid arthritis, DVT, and cholesterol, presented to the ER with complaints of chest pain for the past two days. He reports chest pain is intermittent, nonradiating, no alleviating factors. He denies any a shortness of breath, headache, vision changes, diaphoresis, cough, fever, chills, nausea, or vomiting. He is on multiple blood pressure medications and his blood pressure has been fluctuating from being really high and with systolic blood pressure being in the 200s and at times, going down as low as 80s. He reports PCP and packager hand, are working to stabilize his blood pressure. Currently, chest pain is very minimal at 1-07/22. Upon arrival, his blood pressure was . Last night, he presented to the ER for increased blood pressure and chest discomfort. PAST MEDICAL HISTORY: 1. Hypertension. 2. High cholesterol. 3. DVT. 4. Osteoarthritis. 5. Chronic back pain and neck pain. PAST SURGICAL HISTORY: He reports he had C3-7 fusion, he had laminectomy T2-T3, reports multiple left knee surgeries, on lifelong antibiotics. FAMILY MEDICAL HISTORY: He reports mother had asthma and father has Alzheimer's. SOCIAL HISTORY: He denies any tobacco, alcohol, or illicit drug use. ALLERGIES: AMLODIPINE, ATORVASTATIN, AND WARFARIN. REVIEW OF SYSTEMS: Twelve system is negative except as reported in the HPI. PHYSICAL EXAMINATION: VITAL SIGNS: Temperature 98.0, pulse is 52, respirations 18, blood pressure 187/63, pulse ox is 100% on room air. GENERAL: No acute distress. HEENT: Normocephalic and atraumatic. NECK: Supple. LUNGS: Clear. CARDIOVASCULAR: Regular rate and rhythm. GI: Soft and nontender. NEUROLOGIC: Alert, awake, and oriented x3. MUSCULOSKELETAL: Moves all extremities. SKIN: Dry. PSYCH: Calm. LABORATORY DATA: WBC 8.9, hemoglobin 13.1, hematocrit 39.2, platelets 191. Sodium 142, potassium 4.1, CO2 20, BUN is 32, creatinine 1.58. Estimated GFR is 43 and CK 399, CK-MB 6.5, troponin 0.025, BNP 77, albumin 3.8, globulin 4.1, triglycerides 96, cholesterol 165, LDL 108, HDL 38. PT 21.6, INR 1.74, APTT 37.4. Coronavirus PCR pending. IMAGING: Chest x-ray, no acute abnormality. IMPRESSION: 1. Hypertensive crisis. Blood pressure 214/101 upon arrival. Resume home medications. Hydralazine IV p.r.n. Reports fluctuating BP, is working with the packager hand at [facility]. 2. Chest pain, rule out acute coronary syndrome. Troponin times x2 negative. The patient refused echo as he has recent echo done with his packager hand. He was given nitroglycerin, continue blood pressure medications, chest pain may be related to elevated blood pressure. 3. History of deep venous thrombosis prophylaxis. Resume Xarelto. 4. Osteoarthritis. Pain management as needed. 5. High cholesterol. Continue statin. PLAN: Monitor on tele, trend cardiac enzymes, treat blood pressure as needed. The patient is knowledgeable on checking blood pressure multiple times in a day, and takes clonidine p.r.n. He has an appointment with his packager hand and PCP for further evaluation and better management of BP. Dictated by SHEREEN Cabral Bari Padilla MD MY/MODL /[id number] MTDD
--- NOTE | 2019-11-23 21:35 | Discharge Summary ---
PRIMARY CARE PHYSICIAN: Dr. Baker at [facility]. FINAL DISCHARGE DIAGNOSES: 1. Hypertensive crisis. 2. Chest pain, ruled out acute coronary syndrome. 3. History of deep venous thrombosis. 4. Osteoarthritis. 5. High cholesterol. 6. Chronic kidney disease 3. 7. Chronic back and neck pain. INFORMATION SECURITY OFFICER: None. PROCEDURES: None. HISTORY: Per HPI. HOSPITAL COURSE: This is a 74-year-old male with past medical history of high blood pressure, rheumatoid arthritis, DVT on Xarelto, high cholesterol, with chronic back and neck pain, presented to the ER with complaints of chest discomfort for the past 2 days due to severely elevated blood pressure. He reports the chest pain was nonradiating, reports has been having hard time controlling his blood pressure, has been seeing 2 cardiologists and his PCP and checks his blood pressure several times a day. He has clonidine as needed for systolic blood pressure over 180. Upon arrival to the ER, his blood pressure was 214/101. He was given his home medication and hydralazine IV, which has improved at home. He refused echocardiogram since he has had recent echocardiogram with his purchasing intern. The chest pain has resolved once blood pressure was controlled. Cardiac troponin x2 were negative. Chest pain, most likely due to severely elevated blood pressure. He refused to see a purchasing intern here and wants to follow up with his PCP and purchasing intern next week for further evaluation and workup. PHYSICAL EXAMINATION: VITAL SIGNS: Temperature 98.0, pulse is 52, respirations 18, blood pressure 187/63, pulse ox is 100% on room air. GENERAL: No acute distress. LUNGS: Clear. CARDIOVASCULAR: Regular rate and rhythm. GI: Soft and nontender. NEUROLOGIC: Alert, awake, and oriented x3. MUSCULOSKELETAL: Moves all extremities. No edema. CONDITION AT DISCHARGE: Improved and stable. DISCHARGE MEDICATIONS: Please see medication reconciliation list. FOLLOWUP: Follow up with PCP and purchasing intern in 1 to 2 weeks. TIME SPENT: Total time of discharge is 32 minutes. Dictated by SHEREEN Cabral Adrianaching Crow Padilla MD MY/MODL /[id number] cc: [facility]
== END 2019-11-22 18:15 | disposition home or self-care (01) ==
LOC: ER 21:18 → ERHOLD 22:51 → MED/SURG 11-22 00:09
PROVIDERS: ADMIT Internal Medicine; ATTEND Internal Medicine
DX: I16.9 Hypertensive crisis, unspecified (principal); R07.9 Chest pain, unspecified; E78.5 Hyperlipidemia, unspecified; M19.90 Unspecified osteoarthritis, unspecified site; Z96.652 Presence of left artificial knee joint; Z88.8 Allergy status to other drugs, medicaments and biological substances; M06.9 Rheumatoid arthritis, unspecified; Z09 Encounter for follow-up examination after completed treatment for conditions other than malignant neoplasm; Z86.718 Personal history of other venous thrombosis and embolism; Z79.01 Long term (current) use of anticoagulants; E78.00 Pure hypercholesterolemia, unspecified; N18.3 Chronic kidney disease, stage 3 (moderate)
CPT/HCPCS: 36415 ×2; 71045; 80053; 80061; 82550 ×2; 82553 ×2; 83880; 84484 ×2; 85025; 85610; 85730; 87635; 93005; 99284; G0378 ×2; J0360 ×2

== ENCOUNTER 2025-01-12 14:56 | Emergency (ER) | payer MEDICARE ==
[~2025-01-12] VITALS: Ht 175.3 cm; Wt 90.7 kg
[~2025-01-12 14:56] MED LIST changes: +ALLERGY RELIEF10 M4; +ATENOLOL50 MG PO; +CEPHALEXIN500 MG PO; +CLONIDINE HCL0.1 MG PO; +FLUTICASONE P15.8 ML; +GABAPENTIN400 MG PO; +LISINOPRIL-HCT1 EACH; +MONTELUKAST SOD10 MG PO; +MULTIVITAMINS1 EAC6; +SENNA8.6 MG; +SIMVASTATIN10 MG PO; +SPIRONOLACTONE25 MG PO; +XARELTO2.5 MG PO
[2025-01-12 15:10] VITALS: TEMP 98.3
[2025-01-12] MEDS: HYDROCODONE/APAP 5MG-325MG TAB PO ONE (17:41)
[2025-01-12] MEDS ORDERED: LISINOPRIL 20 MG TAB ONE (17:59)
[2025-01-12] MEDS: CLONIDINE HCL 0.1 MG TAB PO ONE (18:32)
[2025-01-12 18:33] VITALS: BP 207/82
[2025-01-12] MEDS: LISINOPRIL 20 MG TAB PO ONE (18:33)
[2025-01-12 19:01] VITALS: PULSE 68; RESP 17; O2SAT 99
== END 2025-01-12 19:04 | disposition home or self-care (01) ==
LOC: ER 15:18
DX: M25.561 Pain in right knee (principal); M25.461 Effusion, right knee; W01.198A Fall on same level from slipping, tripping and stumbling with subsequent striking against other object, initial encounter; Y92.89 Other specified places as the place of occurrence of the external cause; I10 Essential (primary) hypertension; E78.5 Hyperlipidemia, unspecified; M54.9 Dorsalgia, unspecified; G89.29 Other chronic pain; G81.91 Hemiplegia, unspecified affecting right dominant side; Z86.711 Personal history of pulmonary embolism; Z86.718 Personal history of other venous thrombosis and embolism; Z96.652 Presence of left artificial knee joint
CPT/HCPCS: 99284